=== PATIENT | male | born 1980 | race Caucasian/White ===

== ENCOUNTER 2016-12-14 21:34 | Emergency (ER) | payer SELFPAY ==
--- NOTE | 2016-12-14 22:23 | RADIOLOGY REPORT (SQ) ---
EXAM DESCRIPTION: HAND LEFT 3 VIEWS COMPLETED DATE/TIME: 12/14/2016 10:14 pm REASON FOR STUDY: R/O FX COMPARISON: None. EXAM PARAMETERS: NUMBER OF VIEWS: Three views. TECHNIQUE: AP, lateral and oblique radiographic images acquired of the left hand. LIMITATIONS: None. FINDINGS: MINERALIZATION: Normal. BONES: No acute fracture or dislocation. No worrisome bone lesions. JOINTS: No effusions. SOFT TISSUES: No soft tissue swelling. No foreign body. OTHER: No other significant finding. IMPRESSION: NEGATIVE STUDY OF THE LEFT HAND. NO RADIOGRAPHIC EVIDENCE OF ACUTE INJURY. TECHNICAL DOCUMENTATION: JOB ID: [id number] [employer]%- All Rights Reserved
--- NOTE | 2016-12-14 23:35 | ER Document Report ---
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 His tetanus is up-to-date. He denies numbness, tingling, snuffbox tenderness or other injuries. TRAVEL OUTSIDE OF THE [place] IN LAST 30 DAYS: No - Related Data Allergies/Adverse Reactions: No Known Allergies Allergy (Verified 07/11/15 20:29) Past Medical History - General Information source: Patient - Social History Smoking Status: Unknown if Ever Smoked Family History: Other - Mother and brother have SVT long QT and he states have both had a heart attack and on pacemaker defibrillator Patient has suicidal ideation: No Patient has homicidal ideation: No Renal/ Medical History: Reports: Hx Kidney Stones. Denies: Hx Peritoneal Dialysis - Immunizations Immunizations up to date: Yes Hx Diphtheria, Pertussis, Tetanus Vaccination: No Review of Systems - Review of Systems Notes: REVIEW OF SYSTEMS: CONSTITUTIONAL: -fevers, -chills EENT: -eye pain, -difficulty swallowing, -nasal congestion CARDIOVASCULAR:-chest pain, -syncope. RESPIRATORY: -cough, -SOB GASTROINTESTINAL: -abdominal pain, - nausea, -vomiting, -diarrhea GENITOURINARY: -dysuria, -hematuria MUSCULOSKELETAL: +left hand pain, -back pain, -neck pain SKIN: -rash or skin lesions. HEMATOLOGIC: -easy bruising or bleeding. LYMPHATIC: -swollen, enlarged glands. NEUROLOGICAL: -altered mental status or loss of consciousness, -headache, - neurologic symptoms PSYCHIATRIC: -anxiety, -depression. ALL OTHER SYSTEMS REVIEWED AND NEGATIVE. Physical Exam - Vital signs Vitals: Temp Pulse Resp BP Pulse Ox 98.2 F 76 16 138/90 H 96 12/14/16 21:37 12/14/16 21:37 12/14/16 21:37 12/14/16 21:37 12/14/16 21:37 - Notes Notes: PHYSICAL EXAMINATION: GENERAL: Well-appearing, well-nourished and in no acute distress. HEAD: Atraumatic, normocephalic. EYES: Pupils equal round and reactive to light, extraocular movements intact, sclera anicteric, conjunctiva are normal. ENT: nares patent, oropharynx clear without exudates. Moist mucous membranes. NECK: Normal range of motion, supple without lymphadenopathy LUNGS: Breath sounds clear to auscultation bilaterally and equal. No wheezes rales or rhonchi. HEART: Regular rate and rhythm without murmurs ABDOMEN: Soft, nontender, normoactive bowel sounds. No guarding, no rebound. No masses appreciated. EXTREMITIES: Swelling and contusion over left base of 5th metacarpal, N/V intact distally, no snuffbox tenderness, normal range of motion, no pitting or edema. No cyanosis. NEUROLOGICAL: Cranial nerves grossly intact. Normal speech, normal gait. Normal sensory and motor exams. PSYCH: Normal mood, normal affect. Course - Re-evaluation Re-evalutation: No fractures on x-ray. Will treat his hand contusion with NSAIDs. - Vital Signs Vital signs: Temp Pulse Resp BP Pulse Ox 98.2 F 84 20 118/76 96 12/14/16 21:37 12/14/16 23:48 12/14/16 23:48 12/14/16 23:48 12/14/16 23:48 Discharge - Discharge Clinical Impression: Contusion of left hand Qualifiers: Encounter type: initial encounter Qualified Code(s): S60.222A - Contusion of left hand, initial encounter Condition: Good Disposition: HOME, SELF-CARE Additional Instructions: Contusion Your injury has resulted in a contusion -- a crushing of the deep tissues. No injury to important structures was detected during the physician's exam. Contusions vary in the amount of pain they cause, and in the length of time required for healing. Typically, the area will become bruised, and will remain painful to touch for two or three weeks. However, most patients are back to working and playing within a few days. After the initial period of rest and cold-packs, your symptoms (together with the doctor's recommendations) will determine how rapidly you can get back to full activity. Usually this means "do what feels okay, but don't do things that hurt." If re-examination was recommended, it's important to follow up as instructed. Call the doctor or return any time if pain increases, if swelling becomes severe, if you develop numbness or weakness in an injured extremity, or if any other alarming symptoms occur. Referrals: SAMMIE DAI, [ACTIVE STAFF] - Follow up as needed
[2016-12-14] MEDS ORDERED: IBUPROFEN 600 MG TABLET PO ONE (23:39)
[2016-12-14] MEDS ORDERED: ACETAMINOPHEN WITH CODEINE #3 TABLET PO ONE (23:39)
[2016-12-14 23:48] VITALS: BP 118/76
== END 2016-12-14 23:48 | disposition home or self-care (01) ==
LOC: ER 21:34
DX: S60.222A Contusion of left hand, initial encounter (principal); W20.8XXA Other cause of strike by thrown, projected or falling object, initial encounter; Z87.442 Personal history of urinary calculi
CPT/HCPCS: 99283

== ENCOUNTER 2017-01-10 11:26 | Emergency (ER) | payer SELFPAY ==
[2017-01-10] MEDS ORDERED: OXYCODONE-ACETAMINOPHEN 5-325 MG TABLET PO ONE (12:06)
--- NOTE | 2017-01-10 12:24 | ER Document Report ---
ED Head/Face/Scalp Injury - General Chief Complaint: Facial Swelling Stated Complaint: SWELLING,FACIAL PAIN Time Seen by Provider: 01/10/17 12:04 Notes: swelling and pain to left nare x 6 days. area was draining initially, but quit draining 2 days ago. swelling and pain to nose and left face have increased. TRAVEL OUTSIDE OF THE [place] IN LAST 30 DAYS: No - HPI Injury to: Nose Timing: Worse Context: Other - abscess - Related Data Allergies/Adverse Reactions: No Known Allergies Allergy (Verified 01/10/17 11:27) Past Medical History - General Information source: Patient - Social History Smoking Status: Current Every Day Smoker Chew tobacco use (# tins/day): No Frequency of alcohol use: None Drug Abuse: None Lives with: Family Family History: Reviewed & Not Pertinent, Other - Mother and brother have SVT long QT and he states have both had a heart attack and on pacemaker defibrillator Patient has suicidal ideation: No Patient has homicidal ideation: No - Medical History Medical History: Negative Renal/ Medical History: Reports: Hx Kidney Stones. Denies: Hx Peritoneal Dialysis Past Surgical History: Reports: Hx Kidney (Renal Surgery) - lithrotripsy - Immunizations Immunizations up to date: Yes Hx Diphtheria, Pertussis, Tetanus Vaccination: No Review of Systems - Review of Systems Constitutional: No symptoms reported EENT: See HPI, Nose pain Cardiovascular: No symptoms reported Respiratory: No symptoms reported Gastrointestinal: No symptoms reported Genitourinary: No symptoms reported Male Genitourinary: No symptoms reported Musculoskeletal: No symptoms reported Skin: No symptoms reported Hematologic/Lymphatic: No symptoms reported Neurological/Psychological: No symptoms reported Physical Exam - Vital signs Vitals: Temp Pulse Resp BP Pulse Ox 98.2 F 68 16 131/61 H 94 01/10/17 11:29 01/10/17 11:29 01/10/17 11:29 01/10/17 11:29 01/10/17 11:29 Interpretation: Normal - General General appearance: Appears well, Alert - HEENT Head: Normocephalic, Atraumatic Eyes: Normal Conjunctiva: Normal Pupils: PERRL Tympanic membrane: Normal Sinus: Other - + tenderness left maxially sinus Nasal: Other - swelling and pain to left anterior nare and septal wall. center scab removed with 18g needle, no drainage. very painful Mucous membranes: Normal, Moist Pharynx: Normal Neck: Normal, Supple - Respiratory Respiratory status: No respiratory distress Chest status: Nontender Breath sounds: Normal Chest palpation: Normal - Cardiovascular Rhythm: Regular Heart sounds: Normal auscultation Murmur: No - Abdominal Inspection: Normal Distension: No distension Bowel sounds: Normal Tenderness: Nontender Organomegaly: No organomegaly - Back Back: Normal, Nontender - Extremities General upper extremity: Normal inspection, Nontender, Normal color, Normal ROM , Normal temperature General lower extremity: Normal inspection, Nontender, Normal color, Normal ROM , Normal temperature, Normal weight bearing. No: Yenifer's sign - Neurological Neuro grossly intact: Yes Cognition: Normal Orientation: AAOx4 [place] Coma Scale Eye Opening: Spontaneous [place] Coma Scale Verbal: Oriented [place]abella Coma Scale Motor: Obeys Commands Isabella Coma Scale Total: 15 Speech: Normal Motor strength normal: LUE, RUE, LLE, RLE Sensory: Normal - Psychological Associated symptoms: Normal affect, Normal mood - Skin Skin Temperature: Warm Skin Moisture: Dry Skin Color: Normal Course - Re-evaluation Re-evalutation: 01/10/17 12:[address] Strickland who evaluated patient at bedside. recommends oral and topical antibiotic. no I&D at this time. pt agreeable with plan and stable for discharge - Vital Signs Vital signs: Temp Pulse Resp BP Pulse Ox 98.2 F 68 16 131/61 H 94 01/10/17 11:29 01/10/17 11:29 01/10/17 11:29 01/10/17 11:29 01/10/17 11:29 Discharge - Discharge Clinical Impression: Nasal abscess Condition: Stable Disposition: HOME, SELF-CARE Instructions: Abscess ([facility]), Oral Narcotic Medication ([facility]), Antibiotic Ointment Protection ([facility]) Additional Instructions: apply warm compresses to area take antibiotic as prescribed follow up with ENT for further treatment Prescriptions: Clindamycin HCl 300 mg PO QID #28 capsule Mupirocin [Bactroban 2% Ointment 22 gm] 1 applic TP TID #1 tube Oxycodone HCl/Acetaminophen [Percocet 5-325 mg Tablet] 1 - 2 tab PO ASDIR PRN # 25 tablet PRN Reason: Forms: Elevated Blood Pressure
[2017-01-10 12:49] VITALS: BP 108/57
== END 2017-01-10 12:47 | disposition home or self-care (01) ==
LOC: ER 11:26
DX: J32.9 Chronic sinusitis, unspecified (principal); R22.0 Localized swelling, mass and lump, head; R51 Headache; F17.200 Nicotine dependence, unspecified, uncomplicated
CPT/HCPCS: 99283

== ENCOUNTER 2017-02-24 16:52 | Emergency (ER) | payer SELFPAY ==
[2017-02-24] MEDS ORDERED: TETRACAINE HCL 0.5% OPH SOLN 2 ML OS ONE (17:31)
--- NOTE | 2017-02-24 17:48 | ER Document Report ---
HPI - HPI Patient complains to provider of: shingles around left eye and left side Onset: Other Onset/Duration: Sudden Quality of pain: Burning Severity: Moderate Pain Level: 4 Context: Patient states pain started several days ago and rash began yesterday above left eye and to left side of trunk. He has had shingles before and it is always in the same places. Associated Symptoms: None Exacerbated by: Denies Relieved by: Denies Similar symptoms previously: Yes Recently seen / treated by doctor: No - ROS ROS below otherwise negative: Yes Systems Reviewed and Negative: Yes All other systems reviewed and negative - CONSTITUTIONAL Constitutional: DENIES: Fever - EENT EENT: DENIES: Congestion, Eye problems - NEURO Neurology: DENIES: Headache - CARDIOVASCULAR Cardiovascular: DENIES: Chest pain - RESPIRATORY Respiratory: DENIES: Trouble Breathing - GASTROINTESTINAL Gastrointestinal: DENIES: Abdominal Pain - REPRODUCTIVE Reproductive: DENIES: : - MUSCULOSKELETAL Musculoskeletal: DENIES: Extremity pain - DERM Skin Color: Erythema Skin Problems: Rash Past Medical History - General Information source: Patient - Social History Smoking Status: Current Every Day Smoker Frequency of alcohol use: Rare Drug Abuse: None Lives with: Spouse/Significant other Family History: Reviewed & Not Pertinent, Other - Mother and brother have SVT long QT and he states have both had a heart attack and on pacemaker defibrillator Renal/ Medical History: Reports: Hx Kidney Stones Past Surgical History: Reports: Hx Kidney (Renal Surgery) - lithrotripsy - Immunizations Immunizations up to date: Yes Hx Diphtheria, Pertussis, Tetanus Vaccination: No Vertical Provider Document - CONSTITUTIONAL Agree With Documented VS: Yes Exam Limitations: No Limitations General Appearance: WD/WN, No Apparent Distress - INFECTION CONTROL TRAVEL OUTSIDE OF THE [place] IN LAST 30 DAYS: No - HEENT HEENT: Atraumatic, Normal ENT Exam, Normocephalic, PERRLA - NECK Neck: Normal Inspection - RESPIRATORY Respiratory: Breath Sounds Normal, No Respiratory Distress O2 Sat by Pulse Oximetry: 100 - CARDIOVASCULAR Cardiovascular: Regular Rate, Regular Rhythm - GI/ABDOMEN Gastrointestinal: Abdomen Soft - MUSCULOSKELETAL/EXTREMETIES Musculoskeletal/Extremeties: MAEW - NEURO Level of Consciousness: Awake, Alert, Appropriate - DERM Integumentary: Warm, Dry, Rash - Vesicular rash above left eyelid. Red rash tracking from mid left back to left side of trunk. No vesicles on the trunk Course - Re-evaluation Re-evalutation: 02/24/17 17:[address] Bhagat. Stain eye to look for dendrites. Left eye numbed with tetracaine and fluorescein instilled. This was rinsed with approximately 4 mL's of normal saline. No dendrites or blisters noted to eye. 02/24/17 17:52 - Vital Signs Vital signs: Temp Pulse Resp BP Pulse Ox 98.1 F 62 16 116/57 L 100 02/24/17 16:54 02/24/17 16:54 02/24/17 16:54 02/24/17 16:54 02/24/17 16:54 Discharge - Discharge Clinical Impression: Shingles Qualifiers: Herpes zoster complications: without complications Qualified Code(s): B02.9 - Zoster without complications Condition: Good Disposition: HOME, SELF-CARE Instructions: Acetaminophen Additional Instructions: Take all meds as prescribed Follow-up with primary care and her eye doctor beginning of next week for recheck. tylenol prn return as needed Prescriptions: Acyclovir [Acyclovir 400 mg Tablet] 800 mg PO 5XD #70 tablet Prednisone [Deltasone 10 mg Tablet] 10 mg PO ASDIR PRN #21 tablet PRN Reason: Referrals: YUMIKO SEO MD [ACTIVE STAFF] - Follow up as needed
[2017-02-24 17:56] VITALS: BP 117/71
== END 2017-02-24 17:58 | disposition home or self-care (01) ==
LOC: ER 16:52
DX: B02.9 Zoster without complications (principal); F17.200 Nicotine dependence, unspecified, uncomplicated; Z87.442 Personal history of urinary calculi
CPT/HCPCS: 99283

== ENCOUNTER 2017-03-06 12:33 | Inpatient (IN) | payer SELFPAY ==
[2017-03-06] MEDS ORDERED: MORPHINE SULFATE 10 MG/ML INJ IV ONE ×2 (13:02→14:43)
[2017-03-06] MEDS ORDERED: ONDANSETRON HCL INJ/PF 4 MG/2 ML SDV IV ONE ×4 (13:02→17:59)
--- NOTE | 2017-03-06 13:04 | ER Document Report ---
ED Medical Screen (RME) - General Chief Complaint: Flank Pain Stated Complaint: VOMITTING Time Seen by Provider: 03/06/17 13:00 Notes: Patient with a history of kidney stone presents with severe left flank pain started last night. He is also having vomiting. He denies any blood or problems with urination. Patient also states on a previous CT scan he was told he had a "mass" in his left kidney but he does not know further details. TRAVEL OUTSIDE OF THE [place] IN LAST 30 DAYS: No - Related Data Allergies/Adverse Reactions: No Known Allergies Allergy (Verified 03/06/17 12:44) Past Medical History - Social History Frequency of alcohol use: None Drug Abuse: None Renal/ Medical History: Reports: Hx Kidney Stones. Denies: Hx Peritoneal Dialysis Past Surgical History: Reports: Hx Kidney (Renal Surgery) - lithrotripsy - Immunizations Immunizations up to date: Yes Hx Diphtheria, Pertussis, Tetanus Vaccination: No Physical Exam - Vital signs Vitals: Temp Pulse BP Pulse Ox 97.9 F 72 135/111 H 100 03/06/17 12:44 03/06/17 12:44 03/06/17 12:44 03/06/17 12:44 Course - Vital Signs Vital signs: Temp Pulse Resp BP Pulse Ox 97.9 F 72 135/111 H 100 03/06/17 12:44 03/06/17 12:44 03/06/17 12:44 03/06/17 12:44
[2017-03-06] MEDS: NORMAL SALINE 1000 ML 1,000 ML IV PRN ×2 (13:38→21:30)
[2017-03-06 13:58] LABS: HEMOGLOBIN 15.8 g/dL (13.5-17.0); HGB HCT DIFFERENCE 1.4; MEAN CORPUSCULAR HEMOGLOBIN 30.7 pg (27.0-33.4); MEAN CORPUSCULAR HGB CONC 34.4 g/dL (32.0-36.0); MEAN CORPUSCULAR VOLUME 89 fl (80-97); RED BLOOD COUNT 5.15 10^6/uL (4.35-5.55); RED CELL DISTRIBUTION WIDTH 14.1 % (11.5-14.0); WHITE BLOOD COUNT 28.2 10^3/uL (4.0-10.5)
[2017-03-06] MEDS ORDERED: NORMAL SALINE 1000 ML 1,000 ML IV ONE (14:16)
[2017-03-06] MEDS ORDERED: CEFTRIAXONE 1 GM/D5W RTU 1 GM/50 ML RTUPB IV ONE (14:24)
[2017-03-06 14:26] LABS: BAND NEUTROPHILS % (MANUAL) 2 % (3-5); BASOPHILS % (MANUAL) 0 % (0-2); EOSINOPHILS % (MANUAL) 0 % (0-6); LYMPHOCYTES % (MANUAL) 9 % (13-45); RBC MORPHOLOGY COMMENT NORMO-CYTIC/CHROMIC; TOTAL CELLS COUNTED 100; TOXIC GRANULATION SLIGHT
--- NOTE | 2017-03-06 14:32 | ER Document Report ---
ED GI/ - General Chief Complaint: Flank Pain Stated Complaint: VOMITTING Time Seen by Provider: 03/06/17 13:00 Notes: Patient says he began vomiting yesterday afternoon and is vomited about 20 times. He is having pain in the left back and flank region since last night. He has had the same pain previously with kidney stones and has undergone lithotripsy 5 times. Has also been told he has a mass in his left kidney, but no one has recommended surgery to remove that mass or kidney. He began having problems with his left kidney about 5 or 6 years ago and has had stones as well as sepsis secondary to infection in that kidney. No diarrhea. No other abdominal procedures or surgeries. Denies any abdominal pain. Unaware of any fever. On no prescription medications for any medical conditions. TRAVEL OUTSIDE OF THE [place] IN LAST 30 DAYS: No - Related Data Allergies/Adverse Reactions: No Known Allergies Allergy (Verified 03/06/17 12:44) Past Medical History - Social History Smoking Status: Current Every Day Smoker Frequency of alcohol use: None Drug Abuse: None Family History: Reviewed & Not Pertinent, Other - Mother and brother have SVT long QT and he states have both had a heart attack and on pacemaker defibrillator Patient has suicidal ideation: No Patient has homicidal ideation: No Renal/ Medical History: Reports: Hx Kidney Stones Past Surgical History: Reports: Hx Kidney (Renal Surgery) - lithrotripsy - Immunizations Immunizations up to date: Yes Hx Diphtheria, Pertussis, Tetanus Vaccination: No Review of Systems - Review of Systems Notes: REVIEW OF SYSTEMS: CONSTITUTIONAL : Denies fever. EENT: Denies eye, ear, nose or mouth or throat pain or other symptoms. CARDIOVASCULAR: Denies chest pain. RESPIRATORY: Denies cough, chest congestion, or shortness of breath. GASTROINTESTINAL: See HPI. GENITOURINARY: See HPI. MUSCULOSKELETAL: Denies back or neck pain. Denies joint pain or swelling. SKIN: Denies rash or skin lesions. NEUROLOGICAL: Denies LOC or altered mental status. Denies headache. Denies sensory loss or motor deficits. ALL OTHER SYSTEMS REVIEWED AND NEGATIVE. Physical Exam - Vital signs Vitals: Temp Pulse BP Pulse Ox 97.9 F 72 135/111 H 100 03/06/17 12:44 03/06/17 12:44 03/06/17 12:44 03/06/17 12:44 Interpretation: Normal, Hypertensive - Mild - Notes Notes: PHYSICAL EXAMINATION: GENERAL: Well-appearing, in no acute distress. Vital signs normal except for slightly elevated blood pressure. Afebrile. Appears in pain. HEAD: Atraumatic, normocephalic. NECK: Normal range of motion, supple. LUNGS: Breath sounds clear and equal bilaterally. HEART: Regular rate and rhythm without murmurs. ABDOMEN: Soft, mild diffuse tenderness but no guarding or rebound. No masses. BACK: Mild percussion tenderness in the left flank region but no other back tenderness.. EXTREMITIES: Normal range of motion without pain. NEUROLOGICAL: Normal speech, normal gait. Normal sensory, motor, and reflex exams. Awake, alert, and oriented x3. Cranial nerves normal. PSYCH: Normal mood, normal affect. SKIN: Warm, dry, no rashes. Course - Re-evaluation Re-evalutation: 03/06/17 17:40 IV fluids were started on the patient. He was given medication for nausea and vomiting. Lab studies were reviewed. Patient's white count of nearly 26,000 is concerning. Urinalysis does not show infection. CT scan does not show obstruction or any urologic abnormalities. I consulted with Dr. Knapp, urologist on-call, who came to the emergency department and evaluated the patient and feels he does not have a urological problem. Spoke with Dr. Null, hospitalist, who will admit the patient for fluids and further observation. - Vital Signs Vital signs: Temp Pulse Resp BP Pulse Ox 97.9 F 64 16 108/62 99 03/06/17 12:44 03/06/17 16:28 03/06/17 16:28 03/06/17 16:28 03/06/17 16:28 - Laboratory Result Diagrams: 03/06/17 13:42 03/06/17 14:32 Laboratory results interpreted by me: 03/06/17 03/06/17 03/06/17 13:42 14:29 14:32 WBC 28.2 H RDW 14.1 H Seg Neuts % (Manual) 83 H Band Neutrophils % 2 L Lymphocytes % (Manual) 9 L Abs Neuts (Manual) 24.0 H BUN 24 H Glucose 115 H Direct Bilirubin 0.5 H Urine Protein 100 H Urine Ketones 20 H - Diagnostic Test Radiology reviewed: Image reviewed, Reports reviewed - CT scan of the patient's abdomen and pelvis without contrast was read as normal. He does have a small punctate calcification in the kidneys that could represent tiny stones, but none in either of the ureters. Discharge - Discharge Clinical Impression: Intractable vomiting Qualifiers: Vomiting type: unspecified Abdominal pain Qualifiers: Abdominal location: generalized Qualified Code(s): R10.84 - Generalized abdominal pain Leukocytosis Qualifiers: Leukocytosis type: bandemia Qualified Code(s): D72.825 - Bandemia Condition: Stable Disposition: ADMITTED INPATIENT Admitting Provider: Hospitalist Unit Admitted: [facility]
[2017-03-06] MEDS ORDERED: KETOROLAC TROMETHAMINE INJ/PF 30 MG/1 ML SDV IV ONE (14:43)
--- NOTE | 2017-03-06 15:13 | RADIOLOGY REPORT (SQ) ---
EXAM DESCRIPTION: CT LTD RENAL STONE PROTOCOL ON COMPLETED DATE/TIME: 03/06/2017 2:46 pm REASON FOR STUDY: L flank,Hx stones, litho-5, WBC 28,000 COMPARISON: CT abdomen pelvis 04/28/2008, 12/15/2010, 07/11/2015 TECHNIQUE: CT scan of the abdomen and pelvis performed without intravenous or oral contrast. Images reviewed with lung, soft tissue, and bone windows. Reconstructed coronal and sagittal MPR images revi ewed. All images stored on PACS. All CT scanners at this facility use dose modulation, iterative reconstruction, and/or weight based d osing when appropriate to reduce radiation dose to as low as reasonably achievable (ALARA). [facility]: Dose Right [facility]: CareDose [facility]: Dose Right [facility]: Teradose 4D [facility]: [employer] RADIATION DOSE: Up-to-date CT equipment and radiation dose reduction techniques were employed. CTDIv ol: 4.9 mGy. DLP: 256 mGy-cm.mGy. LIMITATIONS: None. FINDINGS: LOWER CHEST: No significant findings. No nodules or infiltrates. NON-CONTRASTED LIVER, SPLEEN, ADRENALS: Evaluation limited by lack of IV contrast. No identified sign ificant masses. PANCREAS: No masses. No peripancreatic inflammatory changes. GALLBLADDER: No identified stones by CT criteria. No inflammatory changes to suggest cholecystitis. RIGHT KIDNEY AND URETER: No suspicious masses. Assessment limited by lack of IV contrast. 1.3 cm rig ht upper pole renal cortical cyst. No significant calcifications. No hydronephrosis or hydroureter . LEFT KIDNEY AND URETER: No suspicious masses. Assessment limited by lack of IV contrast. 2 cm left u pper pole renal cortical cyst. Less than 2 mm left lower pole intrarenal nonobstructive stone. No hydronephrosis or hydroureter. AORTA AND RETROPERITONEUM: No aneurysm. No retroperitoneal masses or adenopathy. BOWEL AND PERITONEAL CAVITY: No obvious masses or inflammatory changes. No free fluid. APPENDIX: Normal. PELVIS, BLADDER, AND ABDOMINAL WALL:No abnormal masses. No free fluid. Bladder normal. BONES: No significant findings. OTHER: No other significant finding. IMPRESSION: NO SIGNIFICANT OR ACUTE PROCESS IN THE ABDOMEN OR PELVIS. TECHNICAL DOCUMENTATION: JOB ID: [id number] Quality ID # [id number]: Final reports with documentation of one or more dose reduction techniques (e.g., Au tomated exposure control, adjustment of the mA and/or kV according to patient size, use of iterative reconstruction technique) 2010 [employer]- All Rights Reserved
[2017-03-06 15:17] LABS: APPEARANCE,URINE CLEAR; BILIRUBIN,URINE NEGATIVE (NEGATIVE); GLUCOSE, URINE NEGATIVE (NEGATIVE); KETONES,URINE 20 mg/dL (NEGATIVE); LEUKOCYTE ESTERASE,URINE NEGATIVE (NEGATIVE); NITRITE,URINE NEGATIVE (NEGATIVE); PROTEIN,URINE 100 mg/dL (NEGATIVE); URINE SPECIFIC GRAVITY 1.018; UROBILINOGEN,URINE NEGATIVE mg/dL (<2.0)
[2017-03-06 17:17] LABS: ALANINE AMINOTRANSFERASE 25 U/L (21-72); ALBUMIN 4.4 g/dL (3.5-5.0); ALKALINE PHOSPHATASE 70 U/L (38-126); ANION GAP 14 (5-19); ASPARTATE AMINO TRANSFERASE 22 U/L (17-59); BILIRUBIN,DIRECT 0.5 mg/dL (0.0-0.4); BILIRUBIN,TOTAL 1.2 mg/dL (0.2-1.3); BLOOD UREA NITROGEN 24 mg/dL (7-20); CALCIUM 9.8 mg/dL (8.4-10.2); CARBON DIOXIDE 29 mmol/L (22-30); CHLORIDE 100 mmol/L (98-107); CREATININE RESULT 0.96 mg/dL (0.52-1.25); GLUCOSE 115 mg/dL (75-110); POTASSIUM 3.8 mmol/L (3.6-5.0); SODIUM 143.2 mmol/L (137-145); TOTAL PROTEIN 7.6 g/dL (6.3-8.2)
[2017-03-06] MEDS ORDERED: ACETAMINOPHEN 325 MG TABLET PO PRN (18:36)
--- NOTE | 2017-03-06 19:07 | PDOC H&P ---
History of Present Illness Admission Date/PCP: 03/06/17 17:54 History of Present Illness: SKINNY FALLON is a 36 year old male Past Medical History Renal/ Medical History: Reports: Nephrolithiasis Past Surgical History Past Surgical History: Reports: Other - lithotrypsy Social History Information Source: Patient Smoking Status: Current Every Day Smoker Frequency of Alcohol Use: None Hx Recreational Drug Use: No Drugs: None Family History Family History: CAD, DM, Hypertension, Malignancy, Other - Mother and brother have SVT long QT and he states have both had a heart attack and on pacemaker defibrillator Parental Family History Reviewed: Yes Children Family History Reviewed: Yes Sibling(s) Family History Reviewed.: Yes Medication/Allergy Home Medications: No Home Medications 03/06/17 Allergies/Adverse Reactions: No Known Allergies Allergy (Verified 03/06/17 12:44) Review of Systems Constitutional: PRESENT: headache(s). ABSENT: chills, fever(s), night sweats, weakness, weight gain, weight loss Eyes: ABSENT: visual disturbances Ears: ABSENT: hearing changes Nose, Mouth, and Throat: PRESENT: sore throat - from vomiting. ABSENT: mouth pain Cardiovascular: ABSENT: chest pain, dyspnea on exertion, edema, orthropnea, palpitations Respiratory: ABSENT: cough, dyspnea, hemoptysis Gastrointestinal: ABSENT: abdominal pain, constipation, diarrhea, hematemesis, hematochezia, melena, nausea, vomiting Genitourinary: ABSENT: dysuria, hematuria Musculoskeletal: ABSENT: joint swelling Integumentary: PRESENT: rash - from shingles much better. ABSENT: wounds Neurological: ABSENT: abnormal gait, abnormal speech, confusion, dizziness, focal weakness, syncope Psychiatric: ABSENT: anxiety, depression, homidical ideation, suicidal ideation Endocrine: ABSENT: cold intolerance, heat intolerance, polydipsia, polyuria Hematologic/Lymphatic: ABSENT: easy bleeding, easy bruising Physical Exam Vital Signs: Temp Pulse Resp BP Pulse Ox 98.9 F 63 16 129/65 H 98 03/06/17 18:46 03/06/17 18:46 03/06/17 18:46 03/06/17 18:46 03/06/17 18:46 General appearance: PRESENT: no acute distress, well-developed, well-nourished Head exam: PRESENT: atraumatic, normocephalic Eye exam: PRESENT: conjunctiva pink, EOMI, PERRLA. ABSENT: scleral icterus Ear exam: PRESENT: normal external ear exam Mouth exam: PRESENT: moist, neck supple, tongue midline Neck exam: ABSENT: carotid bruit, JVD, lymphadenopathy, thyromegaly Respiratory exam: PRESENT: clear to auscultation malik. ABSENT: rales, rhonchi, wheezes Cardiovascular exam: PRESENT: RRR. ABSENT: diastolic murmur, rubs, systolic murmur Pulses: PRESENT: normal dorsalis pedis pul Vascular exam: PRESENT: normal capillary refill GI/Abdominal exam: PRESENT: hyperactive bowel sounds, soft. ABSENT: distended, guarding, mass, organolmegaly, rebound, tenderness Rectal exam: PRESENT: deferred Extremities exam: PRESENT: full ROM. ABSENT: calf tenderness, clubbing, pedal edema Neurological exam: PRESENT: alert, awake, oriented to person, oriented to place , oriented to time, oriented to situation, CN II-XII grossly intact. ABSENT: motor sensory deficit Psychiatric exam: PRESENT: appropriate affect, normal mood. ABSENT: homicidal ideation, suicidal ideation Skin exam: PRESENT: dry, intact, warm, other - Dry papules noted on L chest wall and minimal on the upper eyelid L. ABSENT: cyanosis, rash Results Impressions: Limited or Localized CT 03/06/17 14:21 IMPRESSION: NO SIGNIFICANT OR ACUTE PROCESS IN THE ABDOMEN OR PELVIS. Assessment & Plan - Diagnosis (1) Intractable vomiting Qualifiers: Vomiting type: unspecified Is this a current diagnosis for this admission?: Yes (2) Abdominal pain Qualifiers: Abdominal location: generalized Qualified Code(s): R10.84 - Generalized abdominal pain Is this a current diagnosis for this admission?: Yes (3) Leukocytosis Qualifiers: Leukocytosis type: unspecified Qualified Code(s): D72.829 - Elevated white blood cell count, unspecified Is this a current diagnosis for this admission?: Yes - Time Time Spent: 50 to 70 Minutes - Plan Summary Plan Summary: Start IVF and clear liquid diet , give anti-emetics, IV analgesics and obtain head CT. Hold any antibiotics for now. Monitor WBC.
--- NOTE | 2017-03-06 19:36 | RADIOLOGY REPORT (SQ) ---
EXAM DESCRIPTION: CT HEAD COMBO COMPLETED DATE/TIME: 03/06/2017 7:28 pm REASON FOR STUDY: intractable headache COMPARISON: None. TECHNIQUE: Axial images acquired through the brain without and with intravenous contrast. Images re viewed with bone, brain and subdural windows. Images stored on PACS. All CT scanners at this facility use dose modulation, iterative reconstruction, and/or weight based d osing when appropriate to reduce radiation dose to as low as reasonably achievable (ALARA). [facility]: Dose Right [facility]: CareDose [facility]: Dose Right [facility]: Teradose 4D [facility]: [employer] CONTRAST TYPE AND DOSE: contrast/concentration: Isovue 370.00 mg/ml; Total Contrast Delivered: 50.0 ml; Total Saline Delivered: 40.0 ml RENAL FUNCTION: GFR > 60. RADIATION DOSE: Up-to-date CT equipment and radiation dose reduction techniques were employed. CTDIv ol: 64.6 mGy. DLP: 2326 mGy-cm.. LIMITATIONS: None. FINDINGS: VENTRICLES: Normal size and contour. CEREBRUM: No masses. No hemorrhage. No midline shift. Normal best/white matter differentiation. No ev idence for acute infarction. No enhancing lesions. CEREBELLUM: No masses. No hemorrhage. No alteration of density. No evidence for acute infarction. No enhancing lesions. EXTRA-AXIAL SPACES: No fluid collections. No enhancing lesions. ORBITS AND GLOBE: No intra- or extraconal masses. Normal contour of globe without masses. CALVARIUM: No fracture. PARANASAL SINUSES: 2.9 cm mucous retention cyst left maxillary sinus. Otherwise clear. SOFT TISSUES: No mass or hematoma. OTHER: No other significant finding. IMPRESSION: 2.9 CM LEFT MAXILLARY SINUS MUCOUS RETENTION CYST. OTHERWISE UNREMARKABLE HEAD CT WITH AND WITHOUT CONTRAST. TECHNICAL DOCUMENTATION: JOB ID: [id number] Quality ID # [id number]: Final reports with documentation of one or more dose reduction techniques (e.g., Au tomated exposure control, adjustment of the mA and/or kV according to patient size, use of iterative reconstruction technique) 2010 [employer]- All Rights Reserved
--- NOTE | 2017-03-06 20:22 | CONSULTATION REPORT E ---
Consultation Report NAME: SKINNY FALLON : 1980 AGE: 36Y DATE: 03/06/2017 330 A TO: REJI RUTHERFORD M.D. FROM: CARLIN ROCHA M.D. Requesting Physician PREOPERATIVE DIAGNOSES: 1. Abdominal pain. 2. Intractable vomiting. 3. Left kidney stone. 4. Bilateral renal cysts. RECOMMENDATIONS: His renal cysts are stable with prior CT scans. He has a puncture left renal calculus that is not responsible for his current condition and does not require any further treatment. His urine is normal. He does have a white count of 28,000 and is having intractable vomiting, so he will need further evaluation and treatment, but his problem is not urological. CONSULTATION: The patient is a 37-year-old white male who was in moderate distress. He has been experiencing intractable vomiting over the past 24 hours. His white count is 28,000. His urinalysis is normal. He has had some sensation of the tip of his penis after voiding over the past 24 hours but then this could easily be due to acidic urine from dehydration due to his continued vomiting. His abdominal pain started with back pain initially and resembled the pain he has had in the past when he has had kidney stones. His social history, family history, review of systems and past medical history are as listed in Dr. Dueñas's note and the nurses' summary, and I will not redictate them in this consultation. PHYSICAL EXAMINATION: GENERAL: The patient is in moderate distress. He is alert, oriented x3. VITAL SIGNS: Listed in the nurses' notes. HEAD, EYES, EARS, NOSE, THROAT AND NECK: Normal. LUNGS: There is no evidence of labored breathing. ABDOMEN: Soft but diffusely tender. There is no discrete rebound. He has hyperactive bowel sounds. DICTATING PHYSICIAN: REJI RUTHERFORD M.D. [id number] PHY#: [id number] ID: [id number] JOB#: [id number] ACCT: [id number] cc:BABAK DUEÑAS M.D., MARK M.D. >
[2017-03-06] MEDS: ONDANSETRON HCL INJ/PF 4 MG/2 ML SDV IV PRN (21:17)
[2017-03-06] MEDS: PANTOPRAZOLE SODIUM 40 MG VIAL IV SCH (21:17)
[2017-03-06] MEDS ORDERED: OXYCODONE HCL IR 5 MG TABLET PO ONE (23:56)
[2017-03-07 04:59] LABS: HGB HCT DIFFERENCE 0.7; MEAN CORPUSCULAR HEMOGLOBIN 31.1 pg (27.0-33.4); MEAN CORPUSCULAR HGB CONC 33.9 g/dL (32.0-36.0); MEAN CORPUSCULAR VOLUME 92 fl (80-97); RED BLOOD COUNT 3.82 10^6/uL (4.35-5.55); RED CELL DISTRIBUTION WIDTH 14.3 % (11.5-14.0); WHITE BLOOD COUNT 13.2 10^3/uL (4.0-10.5)
[2017-03-07 05:06] LABS: HEMOGLOBIN 11.9 g/dL (13.5-17.0)
[2017-03-07 05:19] LABS: ANION GAP 9 (5-19); BLOOD UREA NITROGEN 24 mg/dL (7-20); CALCIUM 8.8 mg/dL (8.4-10.2); CARBON DIOXIDE 25 mmol/L (22-30); CHLORIDE 106 mmol/L (98-107); CREATININE RESULT 1.06 mg/dL (0.52-1.25); GLUCOSE 118 mg/dL (75-110); POTASSIUM 3.9 mmol/L (3.6-5.0); SODIUM 139.6 mmol/L (137-145)
[2017-03-07] MEDS: ONDANSETRON HCL INJ/PF 4 MG/2 ML SDV IV PRN ×2 (07:00→09:06)
[2017-03-07] MEDS ORDERED: MORPHINE SULFATE 10 MG/ML INJ IV PRN (08:31)
[2017-03-07] MEDS: ENOXAPARIN SODIUM INJ 40 MG/0.4 ML DISP.SYRIN SUBCUT SCH (09:05)
[2017-03-07] MEDS: DOCUSATE SODIUM 100 MG CAPSULE PO SCH ×2 (09:11→17:14)
--- NOTE | 2017-03-07 11:27 | PDOC PROGRESS REPORT ---
Subjective Progress Note for:: 03/07/17 Subjective:: MCCOY improved but now still w/ flank pain associated w/ nausea and vomniting. No chills nor fever nor diarrhea. Recently completed valtex and steroids for shingles. Physical Exam Vital Signs: Temp Pulse Resp BP Pulse Ox 98.0 F 45 L 18 150/83 H 99 03/07/17 08:11 03/07/17 08:11 03/07/17 08:11 03/07/17 08:11 03/07/17 08:11 Intake & Output 03/06/17 03/07/17 03/08/17 06:59 06:59 06:59 Intake Total 1812 Balance 1812 Weight 73.6 kg General appearance: PRESENT: mild distress, thin Head exam: PRESENT: normocephalic Eye exam: PRESENT: EOMI Mouth exam: PRESENT: moist, neck supple Neck exam: ABSENT: JVD Respiratory exam: PRESENT: clear to auscultation malik. ABSENT: rhonchi, wheezes Cardiovascular exam: PRESENT: RRR. ABSENT: gallop GI/Abdominal exam: PRESENT: hyperactive bowel sounds, soft. ABSENT: diminished bowel sounds Extremities exam: ABSENT: pedal edema Neurological exam: PRESENT: alert, awake, oriented to situation Skin exam: PRESENT: dry, warm. ABSENT: cyanosis, rash, vesicles Results Laboratory Results: 03/07/17 04:31 03/07/17 04:31 03/07/17 03/07/17 03/07/17 04:31 04:31 04:31 WBC 13.2 H RBC 3.82 L Hgb 11.9 L D Hct 35.0 L MCV 92 MCH 31.1 MCHC 33.9 RDW 14.3 H Plt Count 116 L Sodium 139.6 Potassium 3.9 Chloride 106 Carbon Dioxide 25 Anion Gap 9 BUN 24 H Creatinine 1.06 Est GFR ( Amer) > 60 Est GFR (Non-Af Amer) > 60 Glucose 118 H Calcium 8.8 TSH 0.38 L Impressions: Head CT 03/06/17 00:00 IMPRESSION: 2.9 CM LEFT MAXILLARY SINUS MUCOUS RETENTION CYST. OTHERWISE UNREMARKABLE HEAD CT WITH AND WITHOUT CONTRAST. Limited or Localized CT 03/06/17 14:21 IMPRESSION: NO SIGNIFICANT OR ACUTE PROCESS IN THE ABDOMEN OR PELVIS. Assessment & Plan - Diagnosis (1) Intractable vomiting Qualifiers: Vomiting type: unspecified Is this a current diagnosis for this admission?: Yes (2) Abdominal pain Qualifiers: Abdominal location: generalized Qualified Code(s): R10.84 - Generalized abdominal pain Is this a current diagnosis for this admission?: Yes (3) Leukocytosis Qualifiers: Leukocytosis type: unspecified Qualified Code(s): D72.829 - Elevated white blood cell count, unspecified Is this a current diagnosis for this admission?: Yes - Time Time Spent with patient: 25-34 minutes - Plan Summary Plan Summary: Check free t4, begin dilaudid and phenergan, D/C morphine, consult GI, cont. PPI.
--- NOTE | 2017-03-07 11:44 | PDOC CONSULTATION ---
Consultation Consult Date: 03/07/17 Attending physician:: JULIANA DUTTA Consult reason:: Intractable nausea and vomiting History of Present Illness Admission Date/PCP: 03/06/17 18:36 History of Present Illness: Patient was admitted by the hospitalist service. Was noted to have a potential kidney stone. Had a CT scan. Patient was seen by the urologist. Was not felt that his symptoms were due to his kidney stone. Has been on previous treatment for shingles. Symptoms have not subsided. GI consultation requested. Question possible peptic ulcer disease, question possible gastric outlet obstruction. Patient continues to have flank pain associated with nausea and vomiting. CT scan otherwise negative for other findings. Patient had been treated for shingles with Valtrex and steroids. Patient possibly needs upper endoscopy to rule out peptic ulcer disease. Previous history of mild heartburn. Denies any current dysphagia odynophagia. No previous hematemesis. Denies any melena or early satiety. Past Medical History Renal/ Medical History: Reports: Nephrolithiasis Past Surgical History Past Surgical History: Reports: Other - lithotrypsy Social History Smoking Status: Current Every Day Smoker Cigarettes Packs Per Day: 0.5 Frequency of Alcohol Use: None Hx Recreational Drug Use: No Drugs: None Family History Family History: CAD, DM, Hypertension, Malignancy, Other - Mother and brother have SVT long QT and he states have both had a heart attack and on pacemaker defibrillator Parental Family History Reviewed: Yes Children Family History Reviewed: Unknown Sibling(s) Family History Reviewed.: Unknown Medication/Allergy Home Medications: No Home Medications 03/06/17 Allergies/Adverse Reactions: No Known Allergies Allergy (Verified 03/06/17 12:44) Review of Systems Constitutional: ABSENT: fever(s), headache(s), night sweats, weakness Eyes: ABSENT: visual disturbances Ears: ABSENT: hearing changes Nose, Mouth, and Throat: ABSENT: mouth pain, sore throat Cardiovascular: ABSENT: chest pain, edema, orthropnea, palpitations Respiratory: ABSENT: dyspnea, hemoptysis Gastrointestinal: PRESENT: nausea, vomiting. ABSENT: diarrhea, dysphagia, hematemesis, hematochezia, melena Genitourinary: ABSENT: dysuria, hematuria Musculoskeletal: ABSENT: deformity, joint swelling Integumentary: ABSENT: lesions, pruritus Neurological: ABSENT: syncope, tingling, tremor(s), vertigo Endocrine: ABSENT: polydipsia, polyphagia, polyuria Hematologic/Lymphatic: ABSENT: easy bruising Allergic/Immunologic: ABSENT: seasonal rhinorrhea Physical Exam Vital Signs: Temp Pulse Resp BP Pulse Ox 98.0 F 45 L 18 150/83 H 99 03/07/17 08:11 03/07/17 08:11 03/07/17 08:11 03/07/17 08:11 03/07/17 08:11 Intake & Output 03/06/17 03/07/17 03/08/17 06:59 06:59 06:59 Intake Total 1812 Balance 1812 Weight 73.6 kg General appearance: PRESENT: no acute distress, mild distress, well-developed, well-nourished Head exam: PRESENT: atraumatic, normocephalic Eye exam: PRESENT: EOMI, PERRLA. ABSENT: nystagmus, periorbital swelling, scleral icterus Mouth exam: PRESENT: moist, neck supple Throat exam: ABSENT: tonsillar exudate, tonsillogmegaly Neck exam: ABSENT: meningismus, tenderness, thyromegaly, tracheal deviation Respiratory exam: PRESENT: symmetrical, unlabored. ABSENT: tachypnea Cardiovascular exam: PRESENT: RRR, +S1, +S2 GI/Abdominal exam: PRESENT: soft. ABSENT: ascites, Brooks's sign, rebound, tenderness Gentrourinary exam: ABSENT: lesions Extremities exam: ABSENT: joint swelling Neurological exam: PRESENT: oriented to time, oriented to situation, reflexes normal, CN II-XII grossly intact Psychiatric exam: PRESENT: appropriate affect Skin exam: PRESENT: normal color. ABSENT: mottled, pallor, petechiae, urticaria Results Laboratory Results: 03/07/17 04:31 03/07/17 04:31 03/07/17 03/07/17 03/07/17 04:31 04:31 04:31 WBC 13.2 H RBC 3.82 L Hgb 11.9 L D Hct 35.0 L MCV 92 MCH 31.1 MCHC 33.9 RDW 14.3 H Plt Count 116 L Sodium 139.6 Potassium 3.9 Chloride 106 Carbon Dioxide 25 Anion Gap 9 BUN 24 H Creatinine 1.06 Est GFR ( Amer) > 60 Est GFR (Non-Af Amer) > 60 Glucose 118 H Calcium 8.8 TSH 0.38 L Impressions: Head CT 03/06/17 00:00 IMPRESSION: 2.9 CM LEFT MAXILLARY SINUS MUCOUS RETENTION CYST. OTHERWISE UNREMARKABLE HEAD CT WITH AND WITHOUT CONTRAST. Limited or Localized CT 03/06/17 14:21 IMPRESSION: NO SIGNIFICANT OR ACUTE PROCESS IN THE ABDOMEN OR PELVIS. Assessment & Plan - Diagnosis (1) Nausea & vomiting Plan: Question possible peptic ulcer disease. Can proceed with upper endoscopy. Risks benefits and alternatives of the procedure I explained to the patient detail and informed consent was obtained. Further recommendations to follow. Can be started on antiemetic as well as PPI. If EGD is negative consider gallbladder workup with possible ultrasound and HIDA scan. It was felt that his symptoms were not consistent with his nephrolithiasis. His recent treatment for shingles included both Valtrex as well as steroids which would not cause significant nausea and vomiting anyway. - Time Time Spent: 50 to 70 Minutes
[2017-03-07] MEDS: PROMETHAZINE HCL INJ 25 MG/1 ML VIAL IV PRN ×2 (12:07→20:38)
[2017-03-07] MEDS: HYDROMORPHONE HCL INJ/PF 2 MG/ML AMPULE IV PRN ×3 (12:07→20:38)
[2017-03-07] MEDS: PANTOPRAZOLE SODIUM 40 MG VIAL IV SCH ×2 (12:12→21:39)
[2017-03-08] MEDS: HYDROMORPHONE HCL INJ/PF 2 MG/ML AMPULE IV PRN ×5 (02:27→20:25)
[2017-03-08] MEDS: PROMETHAZINE HCL INJ 25 MG/1 ML VIAL IV PRN ×3 (02:27→16:16)
[2017-03-08 06:04] LABS: ANION GAP 8 (5-19); BLOOD UREA NITROGEN 17 mg/dL (7-20); CALCIUM 8.7 mg/dL (8.4-10.2); CARBON DIOXIDE 24 mmol/L (22-30); CHLORIDE 108 mmol/L (98-107); CREATININE RESULT 0.95 mg/dL (0.52-1.25); GLUCOSE 86 mg/dL (75-110); POTASSIUM 4.2 mmol/L (3.6-5.0); SODIUM 140.1 mmol/L (137-145)
[2017-03-08] MEDS: ONDANSETRON HCL INJ/PF 4 MG/2 ML SDV IV PRN (06:24)
--- NOTE | 2017-03-08 10:00 | PDOC PROGRESS REPORT ---
Subjective Progress Note for:: 03/08/17 Subjective:: Still w/ nausea and vomiting. Had CT of abd/pelvis w/ oral contrast, no chills nor fever. No diarrhea. Physical Exam Vital Signs: Temp Pulse Resp BP Pulse Ox 98.0 F 58 L 18 158/85 H 100 03/08/17 08:03 03/08/17 08:03 03/08/17 08:03 03/08/17 08:03 03/08/17 08:03 Intake & Output 03/07/17 03/08/17 03/09/17 06:59 06:59 06:59 Intake Total 1812 5746 Balance 1812 5746 Weight 73.6 kg 70.7 kg General appearance: PRESENT: mild distress - due to nausea Head exam: PRESENT: normocephalic Eye exam: PRESENT: EOMI Mouth exam: PRESENT: moist, neck supple Neck exam: ABSENT: JVD Respiratory exam: PRESENT: clear to auscultation malik Cardiovascular exam: PRESENT: RRR. ABSENT: gallop GI/Abdominal exam: PRESENT: soft. ABSENT: distended Extremities exam: ABSENT: pedal edema Neurological exam: PRESENT: alert, awake, oriented to situation Skin exam: PRESENT: dry, warm. ABSENT: cyanosis Results Laboratory Results: 03/07/17 04:31 03/08/17 05:13 03/07/17 03/08/17 04:31 05:13 Sodium 140.1 Potassium 4.2 Chloride 108 H Carbon Dioxide 24 Anion Gap 8 BUN 17 Creatinine 0.95 Est GFR ( Amer) > 60 Est GFR (Non-Af Amer) > 60 Glucose 86 Calcium 8.7 Free T4 0.98 Impressions: Head CT 03/06/17 00:00 IMPRESSION: 2.9 CM LEFT MAXILLARY SINUS MUCOUS RETENTION CYST. OTHERWISE UNREMARKABLE HEAD CT WITH AND WITHOUT CONTRAST. Limited or Localized CT 03/06/17 14:21 IMPRESSION: NO SIGNIFICANT OR ACUTE PROCESS IN THE ABDOMEN OR PELVIS. Assessment & Plan - Diagnosis (1) Intractable vomiting Qualifiers: Vomiting type: unspecified Is this a current diagnosis for this admission?: Yes (2) Abdominal pain Qualifiers: Abdominal location: generalized Qualified Code(s): R10.84 - Generalized abdominal pain Is this a current diagnosis for this admission?: Yes (3) Leukocytosis Qualifiers: Leukocytosis type: unspecified Qualified Code(s): D72.829 - Elevated white blood cell count, unspecified Is this a current diagnosis for this admission?: Yes - Time Time Spent with patient: 15-24 minutes - Plan Summary Plan Summary: Re-check WBC and electrolytes. Await repeat CT and endoscopy.
[2017-03-08 11:04] LABS: HEMATOCRIT 36.7 % (37.9-51.0); HEMOGLOBIN 12.4 g/dL (13.5-17.0); HGB HCT DIFFERENCE 0.5; MEAN CORPUSCULAR HEMOGLOBIN 30.9 pg (27.0-33.4); MEAN CORPUSCULAR HGB CONC 33.8 g/dL (32.0-36.0); MEAN CORPUSCULAR VOLUME 92 fl (80-97); RED BLOOD COUNT 4.01 10^6/uL (4.35-5.55); RED CELL DISTRIBUTION WIDTH 14.3 % (11.5-14.0); WHITE BLOOD COUNT 6.3 10^3/uL (4.0-10.5)
[2017-03-08] MEDS: PANTOPRAZOLE SODIUM 40 MG VIAL IV SCH ×2 (11:28→21:37)
[2017-03-08] MEDS: NORMAL SALINE 1000 ML 1,000 ML IV PRN (11:29)
[2017-03-08] MEDS: DOCUSATE SODIUM 100 MG CAPSULE PO SCH ×2 (11:30→17:20)
[2017-03-08] MEDS: ENOXAPARIN SODIUM INJ 40 MG/0.4 ML DISP.SYRIN SUBCUT SCH (11:30)
--- NOTE | 2017-03-08 12:42 | RADIOLOGY REPORT (SQ) ---
EXAM DESCRIPTION: CT ABD/PELVIS ORAL ONLY COMPLETED DATE/TIME: 03/07/2017 10:13 pm REASON FOR STUDY: Abdominal pain, nausea, vomiting COMPARISON: None. TECHNIQUE: CT scan of the abdomen and pelvis performed with oral contrast and no intravenous contras t. Images reviewed with lung, soft tissue, and bone windows. Reconstructed coronal and sagittal MPR i mages reviewed. All images stored on PACS. All CT scanners at this facility use dose modulation, iterative reconstruction, and/or weight based d osing when appropriate to reduce radiation dose to as low as reasonably achievable (ALARA). [facility]: Dose Right [facility]: CareDose [facility]: Dose Right [facility]: Teradose 4D [facility]: [employer] RADIATION DOSE: Up-to-date CT equipment and radiation dose reduction techniques were employed. CTDIv ol: 4.9 mGy. DLP: 249 mGy-cm.mGy. LIMITATIONS: None. FINDINGS: LOWER CHEST: No significant findings. No nodules or infiltrates. NON-CONTRASTED LIVER, SPLEEN, ADRENALS: Evaluation limited by lack of IV contrast. No identified sign ificant masses. PANCREAS: No masses. No peripancreatic inflammatory changes. GALLBLADDER: No identified stones by CT criteria. No inflammatory changes to suggest cholecystitis. RIGHT KIDNEY AND URETER: No solid masses. No significant calcification. No hydronephrosis or hydroure ter. LEFT KIDNEY AND URETER: 1 mm stone lower pole. Mild dilatation of the UPJ. No definite ureteral sto ne. Small cortical cyst upper pole. AORTA AND RETROPERITONEUM: No aneurysm. No retroperitoneal masses or adenopathy. BOWEL AND PERITONEAL CAVITY: No obvious masses or inflammatory changes. No free fluid. APPENDIX: Normal. PELVIS, BLADDER, AND ABDOMINAL WALL: No abnormal pelvic masses. No abdominal wall hernias. Bladder un remarkable. BONES: No significant findings. OTHER: No other significant finding. IMPRESSION: Small left renal calculus. Mild dilatation of the left UPJ without definitive ureteral stone. This may be related to recent stone passage. Correlation with urinalysis may be of benefit. TECHNICAL DOCUMENTATION: JOB ID: [id number] Quality ID # [id number]: Final reports with documentation of one or more dose reduction techniques (e.g., Au tomated exposure control, adjustment of the mA and/or kV according to patient size, use of iterative reconstruction technique) 2010 [employer]- All Rights Reserved
[2017-03-08] MEDS ORDERED: PROPOFOL INJ 200 MG/20 ML VIAL IV ONE (12:50)
[2017-03-08] MEDS ORDERED: FENTANYL CITRATE INJ/PF 100 MCG/2 ML AMPUL IV PRN ×3 (13:18)
[2017-03-08] MEDS ORDERED: MORPHINE SULFATE 10 MG/ML INJ IV PRN (13:18)
[2017-03-08] MEDS ORDERED: MEPERIDINE HCL/PF INJ 25 MG/1 ML DISP.SYRIN IV PRN (13:18)
[2017-03-08] MEDS ORDERED: DIPHENHYDRAMINE HCL 50 MG/ML VIAL IV PRN (13:18)
[2017-03-08] MEDS ORDERED: OXYCODONE-ACETAMINOPHEN 5-325 MG TABLET PO PRN ×2 (13:18)
[2017-03-08] MEDS ORDERED: PROMETHAZINE HCL INJ 25 MG/1 ML VIAL IV PRN ×2 (13:18)
--- NOTE | 2017-03-08 14:32 | Operative Report ---
Operative Report DATE OF SURGERY: 03/08/17 Operative Report: The risks benefits and alternatives of the procedure explained to the patient in detail and informed consent is obtained.A GIF Olympus video scope was inserted into the patient's mouth and hypopharynx, the esophagus is identified intubated and insufflated,the scope was then advanced through the esophagus stomach and duodenum, retroflexion maneuver is done, the esophagus stomach and first and second portions of the duodenum examined PREOPERATIVE DIAGNOSIS: Nausea and vomiting, intractable POSTOPERATIVE DIAGNOSIS: Gastritis status post biopsy. Duodenitis. Mucosal specimens obtained to rule out Helicobacter pylori OPERATION: EGD with biopsy SURGEON: JULIANA DUTTA ANESTHESIA: LMAC TISSUE REMOVED OR ALTERED: As noted above COMPLICATIONS: None. ESTIMATED BLOOD LOSS: None. INTRAOPERATIVE FINDINGS: As noted above PROCEDURE: Patient tolerated procedure well. No immediate postprocedure complications are noted. Patient is sent back to his room in good condition. We will try to resume regular diet. We will wait on biopsies. Regular activity level. Patient can be follow-up as outpatient for further workup if needed.
[2017-03-09] MEDS: HYDROMORPHONE HCL INJ/PF 2 MG/ML AMPULE IV PRN ×3 (00:34→08:57)
[2017-03-09] MEDS: NORMAL SALINE 1000 ML 1,000 ML IV PRN ×3 (01:35→23:13)
[2017-03-09] MEDS: PROMETHAZINE HCL INJ 25 MG/1 ML VIAL IV PRN ×3 (08:57→23:13)
[2017-03-09] MEDS: PANTOPRAZOLE SODIUM 40 MG VIAL IV SCH ×2 (08:57→21:10)
[2017-03-09] MEDS: ENOXAPARIN SODIUM INJ 40 MG/0.4 ML DISP.SYRIN SUBCUT SCH (09:02)
[2017-03-09] MEDS: DOCUSATE SODIUM 100 MG CAPSULE PO SCH ×2 (09:02→17:07)
[2017-03-09] MEDS: OXYCODONE-ACETAMINOPHEN 5-325 MG TABLET PO PRN ×2 (13:55→20:40)
[2017-03-09] MEDS: ONDANSETRON HCL INJ/PF 4 MG/2 ML SDV IV PRN ×2 (14:30→19:44)
--- NOTE | 2017-03-09 14:30 | PDOC PROGRESS REPORT ---
Subjective Progress Note for:: 03/09/17 Subjective:: The patient's pain improved as well as nausea and vomiting but still with some nausea after oral intake. No diarrhea. Denies constipation. No dysuria urgency or frequency. Urine culture was negative. No chills or fever nor shortness of breath. CT scan of the abdomen and pelvis revealed nephrolithiasis on the left. There is findings suggestive that the patient may have passed a stone. Physical Exam Vital Signs: Temp Pulse Resp BP Pulse Ox 98.4 F 48 L 16 149/78 H 100 03/09/17 11:28 03/09/17 11:28 03/09/17 11:28 03/09/17 11:28 03/09/17 11:28 Intake & Output 03/08/17 03/09/17 03/10/17 06:59 06:59 06:59 Intake Total 5746 5078 337 Output Total 1075 1200 Balance 5746 4003 -863 Weight 70.7 kg 75 kg General appearance: PRESENT: no acute distress, cooperative Mouth exam: PRESENT: moist, neck supple Neck exam: ABSENT: JVD Respiratory exam: PRESENT: clear to auscultation malik Cardiovascular exam: PRESENT: RRR GI/Abdominal exam: PRESENT: soft. ABSENT: distended Extremities exam: ABSENT: pedal edema Neurological exam: PRESENT: alert, awake, oriented to situation Skin exam: PRESENT: dry, warm. ABSENT: cyanosis Results Laboratory Results: 03/08/17 05:13 03/08/17 05:13 Impressions: Head CT 03/06/17 00:00 IMPRESSION: 2.9 CM LEFT MAXILLARY SINUS MUCOUS RETENTION CYST. OTHERWISE UNREMARKABLE HEAD CT WITH AND WITHOUT CONTRAST. Limited or Localized CT 03/06/17 14:21 IMPRESSION: NO SIGNIFICANT OR ACUTE PROCESS IN THE ABDOMEN OR PELVIS. Abdomen/Pelvis CT 03/07/17 00:00 IMPRESSION: Small left renal calculus. Mild dilatation of the left UPJ without definitive ureteral stone. This may be related to recent stone passage. Correlation with urinalysis may be of benefit. Assessment & Plan - Diagnosis (1) Intractable vomiting Qualifiers: Vomiting type: unspecified Is this a current diagnosis for this admission?: Yes (2) Abdominal pain Qualifiers: Abdominal location: generalized Qualified Code(s): R10.84 - Generalized abdominal pain Is this a current diagnosis for this admission?: Yes (3) Leukocytosis Qualifiers: Leukocytosis type: unspecified Qualified Code(s): D72.829 - Elevated white blood cell count, unspecified Is this a current diagnosis for this admission?: Yes - Time Time Spent with patient: 15-24 minutes - Plan Summary Plan Summary: Patient improving. Endoscopy did not reveal acute ulcers. It showed gastritis , we will keep proton pump inhibitor for now. We will discontinue Dilaudid and try him on oral oxycodone as needed. Continue antiemetics. If patient continues to improve likely can be discharged in the morning.
[2017-03-09] MEDS: MORPHINE SULFATE 10 MG/ML INJ IV PRN (22:30)
[2017-03-10] MEDS: ONDANSETRON HCL INJ/PF 4 MG/2 ML SDV IV PRN ×3 (00:27→08:09)
[2017-03-10] MEDS: MORPHINE SULFATE 10 MG/ML INJ IV PRN ×2 (04:22→08:14)
--- NOTE | 2017-03-10 04:41 | RADIOLOGY REPORT (SQ) ---
EXAM DESCRIPTION: ACUTE ABDOMEN SERIES COMPLETED DATE/TIME: 03/10/2017 4:12 am REASON FOR STUDY: N/V COMPARISON: CT, 03/07/2017. NUMBER OF VIEWS: Three views. TECHNIQUE: Frontal chest, supine abdomen and upright/decubitus abdomen radiographic images acquired. LIMITATIONS: None. FINDINGS: CHEST: Lungs clear of infiltrates. FREE AIR: None. No abnormal gas collections. BOWEL GAS PATTERN: Nonobstructive pattern. No dilated loops or air fluid levels. Small residual intr a colonic contrast. Moderate stool retention of the right and transverse colon. CALCIFICATIONS: No suspicious calcifications. HARDWARE: None in the abdomen. SOFT TISSUES: No gross mass or suggestion of organomegaly. BONES: No acute fracture. No worrisome bone lesions. OTHER: No other significant finding. IMPRESSION: NO RADIOGRAPHIC EVIDENCE FOR ACUTE ABDOMINAL DISEASE. TECHNICAL DOCUMENTATION: JOB ID: [id number] [employer]- All Rights Reserved
[2017-03-10 05:00] LABS: ABSOLUTE LYMPHOCYTES (AUTO) 1.3 10^3/uL (0.5-4.7); ABSOLUTE MONOCYTES (AUTO) 0.3 10^3/uL (0.1-1.4); ABSOLUTE NEUT (AUTO) 5.9 10^3/uL (1.7-8.2); BASOPHILS % (AUTO) 0.5 % (0-2); EOSINOPHILS % (AUTO) 0.2 % (0-6); HEMATOCRIT 39.6 % (37.9-51.0); HEMOGLOBIN 13.8 g/dL (13.5-17.0); HGB HCT DIFFERENCE 1.8; MEAN CORPUSCULAR HGB CONC 34.7 g/dL (32.0-36.0); MONOCYTES % (AUTO) 4.2 % (3-13); RED BLOOD COUNT 4.45 10^6/uL (4.35-5.55); RED CELL DISTRIBUTION WIDTH 13.8 % (11.5-14.0); SEGMENTED NEUTROPHILS % (AUTO) 78.1 % (42-78); WHITE BLOOD COUNT 7.6 10^3/uL (4.0-10.5)
[2017-03-10 05:01] LABS: MEAN CORPUSCULAR VOLUME 89 fl (80-97)
[2017-03-10 05:03] LABS: ANION GAP 11 (5-19); BLOOD UREA NITROGEN 12 mg/dL (7-20); CALCIUM 8.9 mg/dL (8.4-10.2); CARBON DIOXIDE 23 mmol/L (22-30); CHLORIDE 106 mmol/L (98-107); CREATININE RESULT 0.97 mg/dL (0.52-1.25); GLUCOSE 115 mg/dL (75-110); LIPASE 53.9 U/L (23-300); MAGNESIUM 1.5 mg/dL (1.6-2.3); POTASSIUM 3.2 mmol/L (3.6-5.0); SODIUM 140.3 mmol/L (137-145)
[2017-03-10] MEDS: PROMETHAZINE HCL INJ 25 MG/1 ML VIAL IV PRN ×2 (05:51→12:44)
[2017-03-10] MEDS: NORMAL SALINE 1000 ML 1,000 ML IV PRN (05:52)
[2017-03-10] MEDS: POTASSI CL 20 MEQ/50 ML RIDER 20 MEQ/50 ML RTUPB IV SCH ×3 (06:36→11:37)
[2017-03-10] MEDS: MAGNESIUM SULFATE/D5W 1 GM/100 ML RTUPB IV SCH ×2 (06:37→07:29)
[2017-03-10] MEDS ORDERED: DEXTROSE 40% GEL 15 GM TUBE PO PRN ×2 (07:48)
[2017-03-10] MEDS ORDERED: GLUCAGON,HUMAN RECOMB 1 MG INJ SUBCUT PRN (07:48)
[2017-03-10] MEDS ORDERED: DEXTROSE 50%-WATER 25 GM/50 ML DISP.SYRIN IV PRN ×2 (07:48)
[2017-03-10] MEDS: PANTOPRAZOLE SODIUM 40 MG VIAL IV SCH (08:08)
[2017-03-10] MEDS: ENOXAPARIN SODIUM INJ 40 MG/0.4 ML DISP.SYRIN SUBCUT SCH (08:12)
[2017-03-10] MEDS: DOCUSATE SODIUM 100 MG CAPSULE PO SCH (08:15)
--- NOTE | 2017-03-10 09:13 | PDOC PROGRESS REPORT ---
Subjective Progress Note for:: 03/10/17 Subjective:: Started to developed nausea, vomiting and abdominal pain. No fever, chills, SOB. Patient got anti-emetics and narcotics and sx got better. Now resting comfortably. Physical Exam Vital Signs: Temp Pulse Resp BP Pulse Ox 98.2 F 59 L 18 144/73 H 100 03/10/17 04:24 03/10/17 07:00 03/10/17 04:24 03/10/17 05:16 03/10/17 04:24 Intake & Output 03/09/17 03/10/17 03/11/17 06:59 06:59 06:59 Intake Total 5078 4160 Output Total 1075 4125 Balance 4003 35 Weight 75 kg 72.8 kg General appearance: PRESENT: no acute distress, other - resting comfortably Head exam: PRESENT: normocephalic Eye exam: PRESENT: conjunctiva pink Mouth exam: PRESENT: moist Neck exam: ABSENT: JVD Respiratory exam: PRESENT: clear to auscultation malik. ABSENT: rhonchi, wheezes Cardiovascular exam: PRESENT: RRR. ABSENT: gallop GI/Abdominal exam: PRESENT: hypoactive bowel sounds. ABSENT: distended Extremities exam: ABSENT: pedal edema Psychiatric exam: ABSENT: agitated Focused psych exam: ABSENT: restlessness Skin exam: PRESENT: dry, warm. ABSENT: cyanosis Results Laboratory Results: 03/10/17 04:38 03/10/17 04:38 03/10/17 03/10/17 04:38 04:38 WBC 7.6 RBC 4.45 Hgb 13.8 Hct 39.6 MCV 89 MCH 31.0 MCHC 34.7 RDW 13.8 Plt Count 135 L Seg Neutrophils % 78.1 H Lymphocytes % 17.0 Monocytes % 4.2 Eosinophils % 0.2 Basophils % 0.5 Absolute Neutrophils 5.9 Absolute Lymphocytes 1.3 Absolute Monocytes 0.3 Absolute Eosinophils 0.0 Absolute Basophils 0.0 Sodium 140.3 Potassium 3.2 L Chloride 106 Carbon Dioxide 23 Anion Gap 11 BUN 12 Creatinine 0.97 Est GFR ( Amer) > 60 Est GFR (Non-Af Amer) > 60 Glucose 115 H Calcium 8.9 Magnesium 1.5 L Lipase 53.9 Impressions: Head CT 03/06/17 00:00 IMPRESSION: 2.9 CM LEFT MAXILLARY SINUS MUCOUS RETENTION CYST. OTHERWISE UNREMARKABLE HEAD CT WITH AND WITHOUT CONTRAST. Limited or Localized CT 03/06/17 14:21 IMPRESSION: NO SIGNIFICANT OR ACUTE PROCESS IN THE ABDOMEN OR PELVIS. Abdomen/Pelvis CT 03/07/17 00:00 IMPRESSION: Small left renal calculus. Mild dilatation of the left UPJ without definitive ureteral stone. This may be related to recent stone passage. Correlation with urinalysis may be of benefit. Acute Abdomen Series 03/10/17 00:00 IMPRESSION: NO RADIOGRAPHIC EVIDENCE FOR ACUTE ABDOMINAL DISEASE. Assessment & Plan - Diagnosis (1) Intractable vomiting Qualifiers: Vomiting type: unspecified Is this a current diagnosis for this admission?: Yes (2) Abdominal pain Qualifiers: Abdominal location: generalized Qualified Code(s): R10.84 - Generalized abdominal pain Is this a current diagnosis for this admission?: Yes (3) Leukocytosis Qualifiers: Leukocytosis type: unspecified Qualified Code(s): D72.829 - Elevated white blood cell count, unspecified Is this a current diagnosis for this admission?: Yes - Time Time Spent with patient: 25-34 minutes - Plan Summary Plan Summary: NPO. Continue IVF. Obtain GB US. Consult surgery service. Continue supportive care.
--- NOTE | 2017-03-10 09:58 | RADIOLOGY REPORT (SQ) ---
EXAM DESCRIPTION: U/S ABDOMEN COMPLETE W/DOPPLER COMPLETED DATE/TIME: 03/10/2017 9:40 am REASON FOR STUDY: abdominal pain, cholecystitis COMPARISON: None. TECHNIQUE: Dynamic and static grayscale images acquired of the abdomen and recorded on PACS. Nasho eber selected color Doppler and spectral images recorded. LIMITATIONS: None. FINDINGS: PANCREAS: No masses. Visualized pancreatic duct normal caliber. LIVER: No masses. Echotexture normal. LIVER VASCULATURE: Normal directional flow of the main portal vein and hepatic veins. GALLBLADDER: No stones. Normal wall thickness. No pericholecystic fluid. ULTRASOUND-DETECTED ESCALONA'S SIGN: Negative. INTRAHEPATIC DUCTS AND COMMON DUCT: CBD and intrahepatic ducts normal caliber. No filling defects. INFERIOR VENA CAVA: Normal flow. AORTA: No aneurysm. RIGHT KIDNEY: Normal size. Normal echogenicity. No solid or suspicious masses. No hydronephros is. No calcifications. LEFT KIDNEY: Normal size. 2 cm cyst upper pole. No solid or suspicious masses. No hydronephros is. No calcifications. SPLEEN: Normal size. No solid masses. PERITONEAL AND PLEURAL SPACES: No ascites or effusions. OTHER: No other significant finding. IMPRESSION: No acute findings in the abdomen. TECHNICAL DOCUMENTATION: JOB ID: [id number] [employer]- All Rights Reserved
[2017-03-10] MEDS: OXYCODONE-ACETAMINOPHEN 5-325 MG TABLET PO PRN (12:43)
[2017-03-10 14:55] VITALS: BP 158/85
--- NOTE | 2017-03-10 15:01 | PDOC DISCHARGE SUMMARY ---
General - Admit/Disc Date/PCP Admission Date/Primary Care Provider: 03/10/17 09:13 Discharge Date: 03/10/17 - Discharge Diagnosis (1) Intractable vomiting Is this a current diagnosis for this admission?: Yes Summary: Likely due to nephrolithiasis (2) Abdominal pain Is this a current diagnosis for this admission?: Yes Summary: gastritis/duodenitis (3) Leukocytosis Is this a current diagnosis for this admission?: Yes - Additional Information Resuscitation Status: Full Code Discharge Diet: As Tolerated Discharge Activity: Activity As Tolerated, Balance Activity w/Rest Home Medications: Omeprazole Magnesium [Prilosec Otc] 20 mg PO BID #60 tablet. 03/10/17 Promethazine HCl [Phenergan 25 mg Tablet] 25 mg PO Q6H PRN #30 tablet 03/10/17 Tramadol HCl [Ultram] 50 mg PO TID PRN #25 tablet 03/10/17 Additional Information: Basic metabolic panel out-patient w/ primary physician. History of Present Illness Patient complains of: Intractable nausea and vomiting History of Present Illness: Patient is a 36-year-old male with a history of kidney stones and lithotripsy in the past develop abdominal pain on the left with associated nausea and vomiting while trying to help his father clean the porch. There is no recent travel nor any intake of leftover food. He denies diarrhea dysuria urgency or frequency nor hematuria. No chills or fever associated as well. Family has taken the same food without any symptoms. Due to symptoms persistence the patient went to the emergency room. Had a CT scan that was essentially noncontributory. Patient was seen by the urologist. Was not felt that his symptoms were due to his kidney stone. Has was recently treated for shingles with steroids and Valtrex and completed it last week. In the emergency room WBC was elevated to 28,000. Despite IV fluids and antiemetics and analgesics symptoms have not subsided. Patient was then referred for admission. Patient denies any penile discharge or any rashes well. Treatment for shingles significantly improved of which involvement includes left upper eyelid as well as the left lower rib cage. Hospital Course Hospital Course: The patient was admitted to telemetry. IV fluid was started. Intravenous analgesics and anti-emetics were administered. Electrolytes were monitored and was replaced. Serial WBC was obtained and eventually normalized. Urine culture was negative. Patient evaluated by urology in ED and reported sx were non- urological. Patient was placed on PPI and GI was consulted, follow-up abdominal CT showed left nephrolithiasis w/ findings of recent passage of stone. He underwent EGD and noted duodenitis and gastritis. Bx was negative for malignancy nor H. pylori. His IV narcotics were D/C and transitioned to PO. He had another episode of N/V and recurrence of abdominal pain. Surgery was consulted and RUQ US obtained was negative. Surgery states no surgical abdomen present. At this point, his diet was resumed and was able to tolerate. The rest of the hospital stay was unremarkable. Physical Exam Vital Signs: Temp Pulse Resp BP Pulse Ox 98.7 F 56 L 16 127/77 H 100 03/10/17 11:38 03/10/17 11:38 03/10/17 11:38 03/10/17 11:38 03/10/17 11:38 General appearance: PRESENT: no acute distress, cooperative Head exam: PRESENT: normocephalic Eye exam: PRESENT: EOMI Mouth exam: PRESENT: moist, neck supple Neck exam: ABSENT: JVD Respiratory exam: PRESENT: clear to auscultation malik Cardiovascular exam: PRESENT: RRR GI/Abdominal exam: PRESENT: normal bowel sounds, soft. ABSENT: distended Extremities exam: ABSENT: pedal edema Neurological exam: PRESENT: alert, awake, oriented to person, oriented to place , oriented to time, oriented to situation Skin exam: PRESENT: dry, warm. ABSENT: cyanosis Results Impressions: Head CT 03/06/17 00:00 IMPRESSION: 2.9 CM LEFT MAXILLARY SINUS MUCOUS RETENTION CYST. OTHERWISE UNREMARKABLE HEAD CT WITH AND WITHOUT CONTRAST. Limited or Localized CT 03/06/17 14:21 IMPRESSION: NO SIGNIFICANT OR ACUTE PROCESS IN THE ABDOMEN OR PELVIS. Abdomen/Pelvis CT 03/07/17 00:00 IMPRESSION: Small left renal calculus. Mild dilatation of the left UPJ without definitive ureteral stone. This may be related to recent stone passage. Correlation with urinalysis may be of benefit. Abdomen Ultrasound 03/10/17 00:00 IMPRESSION: No acute findings in the abdomen. Acute Abdomen Series 03/10/17 00:00 IMPRESSION: NO RADIOGRAPHIC EVIDENCE FOR ACUTE ABDOMINAL DISEASE. Qualifiers PATEINT BEING DISCHARGED WITH ANY OF THE FOLLOWING DIAGNOSIS?: No Plan Discharge Plan: Follow-up w/ primary physician in 1 week. Time Spent: Less than 30 Minutes
--- NOTE | 2017-03-10 15:57 | CONSULTATION REPORT E ---
Consultation Report NAME: SKINNY FALLON : 1980 AGE: 36Y DATE: 03/10/2017 330 A TO: PACO REYNOLDS M.D. FROM: MACIEL NULL M.D. Requesting Physician SUMMARY OF CONSULTATION: Patient is a 36-year-old male with a recent history of shingles left chest wall, recurrent, treated with Valtrex and prednisone, who presents to the emergency department with acute onset abdominal pain, left-sided, associated with nausea and vomiting. He was evaluated and found to have evidence of a leukocytosis and was admitted for possible gastroenteritis. Over the ensuing 4 days, he underwent multiple imaging studies, including multiple CT scans of the abdomen and pelvis with IV and oral contrast and also unenhanced CT scan, gallbladder ultrasonography, upper endoscopy by Dr. Corado, urologic consultation by Dr. Bach, all failing to identify an organic explanation for the patient's symptoms. Patient was going to go home today, but developed some abdominal pain, nausea, and vomiting last night and early this morning. At this time, the patient is complaining of some left lower quadrant pain. PAST MEDICAL AND SURGICAL HISTORY: Defer to history and physical documented. SOCIAL HISTORY: The patient does admit to smoking marijuana. He is taking pain medication for shingles. PHYSICAL EXAMINATION: VITAL SIGNS: Stable. PSYCHIATRIC: Alert and oriented x4. NEUROLOGIC: Grossly intact in all extremities. HEAD: Eyes without icterus. NECK: No adenopathy. LUNGS: Diminished in bases bilateral. HEART: Without murmur or gallop. ABDOMEN: Soft. No peritoneal signs. No rigidity. No organomegaly. GENITOURINARY: There are no groin hernias. LABORATORY PROFILE: Essentially unremarkable for 03/10/2017, except for a potassium of 3.2. Blood sugar 115. Magnesium 1.5. IMPRESSION: Abdominal pain, nausea, and vomiting of uncertain etiology; extensive gastroenterologic and radiologic workup failing to reveal etiology of patient's symptoms. At this time, the patient does not have evidence of an acute abdomen and does not need surgical intervention. I discussed the above with Dr. Null. I suggested correcting electrolytes. Reconsult Surgery if clinically indicated. DICTATING PHYSICIAN: PACO REYNOLDS M.D. [id number] Y#: [id number] ID: [id number] JOB#: [id number] ACCT: [id number] cc:PACO REYNOLDS M.D. >
== END 2017-03-10 15:15 | disposition home or self-care (01) | DRG 694 ==
LOC: ER 12:33 → UNDOADMIN 17:54 → EH 17:54 → INTOOBSV 18:36 → EH 18:36 → 3S 19:59 → OBSVTOIN 03-10 09:13
PROVIDERS: ADMIT Family Medicine; ATTEND Family Medicine
PROC: 0DB68ZX Excision of Stomach, Via Natural or Artificial Opening Endoscopic, Diagnostic (ICD-10-PCS; principal; 2017-03-08 13:30)
DX: N20.0 Calculus of kidney (principal); K29.80 Duodenitis without bleeding; K29.50 Unspecified chronic gastritis without bleeding; R10.84 Generalized abdominal pain; D72.829 Elevated white blood cell count, unspecified; F12.90 Cannabis use, unspecified, uncomplicated; F17.210 Nicotine dependence, cigarettes, uncomplicated; Z87.442 Personal history of urinary calculi; Z82.49 Family history of ischemic heart disease and other diseases of the circulatory system; Z80.9 Family history of malignant neoplasm, unspecified; Z83.3 Family history of diabetes mellitus
CPT/HCPCS: 36415; 43239; 70470; 740; 74022; 74176; 76380; 76700; 80048; 80053; 81001; 83690; 83735; 84439; 84443; 85025; 85027; 87040; 87086; 88305; 88342; 93976; 96361; 96374; 96375; 96376; 99285; G0378; J0696; J1170; J1650; J1885; J2270; J2405; J2550; J2704; J3475; J3480; J3490; J7030; S0164

== ENCOUNTER 2017-03-10 22:58 | Emergency (ER) | payer SELFPAY ==
[2017-03-11 00:51] LABS: ABSOLUTE BASOPHILS # (AUTO) 0.1 10^3/uL (0.0-0.2); ABSOLUTE EOSINOPHILS # (AUTO) 0.1 10^3/uL (0.0-0.6); ABSOLUTE LYMPHOCYTES (AUTO) 1.6 10^3/uL (0.5-4.7); ABSOLUTE MONOCYTES (AUTO) 0.4 10^3/uL (0.1-1.4); ABSOLUTE NEUT (AUTO) 15.3 10^3/uL (1.7-8.2); BASOPHILS % (AUTO) 0.4 % (0-2); EOSINOPHILS % (AUTO) 0.4 % (0-6); HEMOGLOBIN 13.2 g/dL (13.5-17.0); HGB HCT DIFFERENCE 1.6; LYMPHOCYTES % (AUTO) 9.3 % (13-45); MEAN CORPUSCULAR HEMOGLOBIN 30.8 pg (27.0-33.4); MEAN CORPUSCULAR HGB CONC 34.7 g/dL (32.0-36.0); MEAN CORPUSCULAR VOLUME 89 fl (80-97); MONOCYTES % (AUTO) 2.3 % (3-13); RED BLOOD COUNT 4.27 10^6/uL (4.35-5.55); RED CELL DISTRIBUTION WIDTH 13.7 % (11.5-14.0); SEGMENTED NEUTROPHILS % (AUTO) 87.6 % (42-78); VENOUS BLOOD HCO3 27.6 mmol/L (20-32); VENOUS BLOOD PCO2 52.3 mmHg (35-63); VENOUS BLOOD PH 7.34 (7.30-7.42)
[2017-03-11 01:04] LABS: ALANINE AMINOTRANSFERASE 20 U/L (21-72); ALBUMIN 3.8 g/dL (3.5-5.0); ALKALINE PHOSPHATASE 49 U/L (38-126); ANION GAP 12 (5-19); ASPARTATE AMINO TRANSFERASE 15 U/L (17-59); BILIRUBIN,DIRECT 0.3 mg/dL (0.0-0.4); BILIRUBIN,TOTAL 1.7 mg/dL (0.2-1.3); BLOOD UREA NITROGEN 11 mg/dL (7-20); CALCIUM 10.1 mg/dL (8.4-10.2); CARBON DIOXIDE 27 mmol/L (22-30); CHLORIDE 105 mmol/L (98-107); CREATININE RESULT 1.01 mg/dL (0.52-1.25); GLUCOSE 110 mg/dL (75-110); POTASSIUM 3.9 mmol/L (3.6-5.0); SODIUM 143.8 mmol/L (137-145); TOTAL PROTEIN 6.8 g/dL (6.3-8.2); WHITE BLOOD COUNT 17.5 10^3/uL (4.0-10.5)
[2017-03-11] MEDS ORDERED: MORPHINE SULFATE 10 MG/ML INJ IV ONE ×3 (01:06→06:46)
[2017-03-11] MEDS ORDERED: NORMAL SALINE 1000 ML 1,000 ML IV ONE (01:07)
--- NOTE | 2017-03-11 01:10 | ER Document Report ---
ED General - General TRAVEL OUTSIDE OF THE [place] IN LAST 30 DAYS: No <ALOK BARKER - Last Filed: 03/11/17 06:56> <SEBASTIAN GUTIERREZ - Last Filed: 03/11/17 14:15> - General Chief Complaint: Abdominal Pain Stated Complaint: FEVER,ABDOMINAL PAIN Time Seen by Provider: 03/11/17 00:46 Notes: Patient is a 36-year-old male who presents with complaint of left lower quadrant abdominal pain. He was just discharged from the hospital was not yesterday. That time he had multiple CT scans, surgery consult, and GI consult. Endoscopy which showed some gastritis and duodenitis. He had a leukocytosis of 20,000 when he first was first admitted. It trended down to normal by the time of discharge. Patient says he is still having some pain was discharged but after he got home his pain gradually got worse and then he spiked a fever of 102.2. He took Tylenol earlier today and pain continue worse and therefore came to ER. Currently his temp is 98.7 with a heart rate of 116. He does have history of kidney stones. After eating a discharge summary 130s that he may have just passed a kidney stone being CT scan showed some dilation of the area of the ureter consistent with possible recently passed stone. His urinalysis was negative at that time without signs of infections. The patient now complains of severe left lower quadrant abdominal pain. He does have a history of several kidney stones. He has had ureteral stents as well as lithotripsy in the past with him. He is originally from [facility] and that is where his urologist was. No other complaints at this time. (ALOK BARKER) - Related Data Allergies/Adverse Reactions: No Known Allergies Allergy (Verified 03/10/17 23:52) Past Medical History - Social History Smoking Status: Unknown if Ever Smoked Frequency of alcohol use: None Drug Abuse: None Family History: CAD, DM, Hypertension, Malignancy, Other - Mother and brother have SVT long QT and he states have both had a heart attack and on pacemaker defibrillator Patient has suicidal ideation: No Patient has homicidal ideation: No Renal/ Medical History: Reports: Hx Kidney Stones. Denies: Hx Peritoneal Dialysis Past Surgical History: Reports: Hx Kidney (Renal Surgery) - lithrotripsy, Other - lithotrypsy - Immunizations Immunizations up to date: Yes Hx Diphtheria, Pertussis, Tetanus Vaccination: No <BARKERBRITTANIALOK - Last Filed: 03/11/17 06:56> Review of Systems <BARKERBRITTANIALOK - Last Filed: 03/11/17 06:56> <SEBASTIAN GUTIERREZ - Last Filed: 03/11/17 14:15> - Review of Systems Notes: My Normal Review Basic REVIEW OF SYSTEMS: CONSTITUTIONAL : Denies fever, chills, or sweats. Denies recent illness. RESPIRATORY: Denies cough, cold, or chest congestion. Denies shortness of breath, difficulty breathing, or wheezing. GASTROINTESTINAL: Lower quadrant abdominal pain GENITOURINARY: Denies difficulty urinating, painful urination, burning, frequency, or blood in urine. MUSCULOSKELETAL: Denies neck or back pain or joint pain or swelling. SKIN: Denies rash or skin lesions. NEUROLOGICAL: Denies altered mental status or loss of consciousness. Denies headache. Denies weakness or paralysis or loss of use of either side. Denies problems with gait or speech. Denies sensory or motor loss. ALL OTHER SYSTEMS REVIEWED AND NEGATIVE. (ALOK BARKER) Physical Exam <BARKERALOK - Last Filed: 03/11/17 06:56> <MATTSEBASTIAN - Last Filed: 03/11/17 14:15> - Vital signs Vitals: Temp Pulse Resp BP Pulse Ox 98.7 F 116 H 18 132/69 H 98 03/10/17 23:05 03/10/17 23:05 03/10/17 23:05 03/10/17 23:05 03/10/17 23:05 - Notes Notes: General Appearance: Well nourished, alert, cooperative, no acute distress, moderate obvious discomfort. Vitals: reviewed, See vital signs table. Head: no swelling or tenderness to the head Eyes: PERRL, EOMI, Conjuctiva clear Mouth: No decreasd moisture Throat: No tonsillar inflammation, No airway obstruction, No lymphadenopathy Lungs: No wheezing, No rales, No rhonci, No accessory muscle use, good air exchange bilaterally. Heart: Normal rate, Regular rythm, No murmur, no rub Abdomen: Normal BS, soft, No rigidity, moderate left lower quadrant abdominal tenderness to palpation, No guarding, no rebound, no abdominal masses, no organomegaly Rectal exam: normal rectal tone. brown stool without gross blood. No masses felt. Extremities: strength 5/5 in all extremities, good pulses in all extremities, no swelling or tenderness in the extremities, no edema. Skin: warm, dry, appropriate color, no rash Neuro: speech clear, oriented x 3, normal affect, responds appropriately to questions. (ALOK BARKER) Course - Laboratory Result Diagrams: 03/11/17 00:30 03/11/17 00:30 <ALOK BARKER - Last Filed: 03/11/17 06:56> - Laboratory Result Diagrams: 03/11/17 00:30 03/11/17 00:30 <SEBASTIAN GUTIERREZ - Last Filed: 03/11/17 14:15> - Re-evaluation Re-evalutation: 03/11/17 03:25 Patient continues to have some pain. I will give another dose of pain medicine. Waiting for the results of his x-ray and have also ordered an ultrasound. 03/11/17 05:59 Patient continues to have pain. My concern is the patient has recurrent pain, fever, leukocytosis. I did speak with the surgeon, Dr. Gonzalez. He says to leave the patient in the ER and they will evaluate. 03/11/17 06:55 Due to the patient's fever, recurrent leukocytosis, and intractable pain I did consult the surgeon, Dr. Gonzalez. He did come evaluate the patient. He requested the patient receive a enema to clear his sigmoid colon and rectum. Then requested the patient have a Gastrografin enema x-ray obtained. He will come evaluate the patient again after that is performed. (ALOK BARKER) - Vital Signs Vital signs: Temp Pulse Resp BP Pulse Ox 98.5 F 57 L 18 136/72 H 98 03/11/17 10:55 03/11/17 10:55 03/11/17 10:55 03/11/17 10:55 03/11/17 10:55 - Laboratory Laboratory results interpreted by me: 03/11/17 03/11/17 03/11/17 00:30 00:30 00:35 WBC 17.5 H D RBC 4.27 L Hgb 13.2 L Seg Neutrophils % 87.6 H Lymphocytes % 9.3 L Monocytes % 2.3 L Absolute Neutrophils 15.3 H Total Bilirubin 1.7 H AST 15 L ALT 20 L Urine Urobilinogen 2.0 H Ur Leukocyte Esterase TRACE H - EKG Interpretation by Me Additional EKG results interpreted by me: 03/11/17 02:44 EKG is reviewed and interpreted by me. EKG shows sinus bradycardia with rate of [address] segment elevation or depression. No ischemic T-wave inversions. SC interval, QRS duration, QTc intervals are within normal range. No old EKG available for comparison. (AOLK BARKER) Discharge <ALOK BARKER - Last Filed: 03/11/17 06:56> <SEBASTIAN GUTIERREZ - Last Filed: 03/11/17 14:15> - Discharge Clinical Impression: Abdominal pain Qualifiers: Abdominal location: unspecified location Qualified Code(s): R10.9 - Unspecified abdominal pain Condition: Stable Disposition: HOME, SELF-CARE Instructions: Abdominal Pain ([facility]) Additional Instructions: Abdominal Pain There are many causes of abdominal pain. Pain can mean a serious problem requiring surgery (such as appendicitis). It can also be an innocent problem that goes away on its own (such as a viral infection). Often, time must pass to determine the cause of pain. The physician does not feel that hospitalization is necessary, at present. Things may change within the next 24 hours. Call the doctor or come back for re- examination if any problems occur, such as: (1) Pain that becomes more severe, steady, or becomes concentrated in one specific area. Also, pain that is more severe with movement or coughing. (2) Vomiting that persists or becomes more frequent. (3) Blood in the vomitus, urine, or bowel movements. Blood in the stool may have a tarry or black appearance. (4) Shaking chills or fever greater than 100 degrees F. (5) The abdomen becomes more distended or swollen. (6) Bowel movements cease. (7) Failure to improve as expected. Referrals: [facility] [Provider Group] - Follow up in 3-5 days [facility] [Provider Group] - Follow up in 3-5 days Scribe Attestation: 03/11/17 11:14 I personally performed the services described in the documentation reviewed the documentation recorded by my scribe in my presence and it accurately and completely records my words and actions (SEBASTIAN GUTIERREZ)
[2017-03-11 01:12] LABS: APPEARANCE,URINE SLIGHTLY-CLOUDY; BILIRUBIN,URINE NEGATIVE (NEGATIVE); GLUCOSE, URINE NEGATIVE (NEGATIVE); KETONES,URINE NEGATIVE (NEGATIVE); LEUKOCYTE ESTERASE,URINE TRACE (NEGATIVE); NITRITE,URINE NEGATIVE (NEGATIVE); PROTEIN,URINE NEGATIVE (NEGATIVE); URINE SPECIFIC GRAVITY 1.017
[2017-03-11 01:29] LABS: PROTHROMBIN TIME 12.4 SEC (11.4-15.4)
[2017-03-11] MEDS ORDERED: KETOROLAC TROMETHAMINE INJ/PF 30 MG/1 ML SDV IV ONE (03:22)
--- NOTE | 2017-03-11 03:44 | RADIOLOGY REPORT (SQ) ---
EXAM DESCRIPTION: KUB/ABDOMEN (SINGLE VIEW) COMPLETED DATE/TIME: 03/11/2017 3:18 am REASON FOR STUDY: LLQ pain, Hx of stones COMPARISON: CT abdomen and pelvis 03/07/2017. Abdominal series 03/10/2017. NUMBER OF VIEWS: One view. TECHNIQUE: Supine radiographic image of the abdomen acquired. LIMITATIONS: None. FINDINGS: BOWEL GAS PATTERN: Nonobstructive bowel gas pattern. CALCIFICATIONS: Bowel loops are partially obscuring the renal shadows. No urinary tract calculi are identified. SOFT TISSUES: No gross mass or suggestion of organomegaly. HARDWARE: None in the abdomen. BONES: No acute findings. IMPRESSION: Nonobstructive bowel gas pattern. No urinary tract calculi identified by plain radiogra ph. TECHNICAL DOCUMENTATION: JOB ID: [id number] [employer]- All Rights Reserved
--- NOTE | 2017-03-11 04:47 | RADIOLOGY REPORT (SQ) ---
EXAM DESCRIPTION: U/S RETROPERITON (RENAL/AORTA) COMPLETED DATE/TIME: 03/11/2017 4:26 am REASON FOR STUDY: left renal pain COMPARISON: Abdominal ultrasound 03/10/2017. CT abdomen and pelvis 03/07/2017. TECHNIQUE: Grayscale images acquired of the kidneys and bladder and recorded on PACS. Additional andrew ected color Doppler images recorded. LIMITATIONS: None. FINDINGS: RIGHT KIDNEY: Measures 10.8 cm. Normal echogenicity. There is a 1.5 cm cyst. No hydroneph rosis. No calcifications. LEFT KIDNEY: Measures 9.6 cm. Normal echogenicity. There is a 1.8 cm cyst. No hydronephrosis. No ca lcifications. BLADDER: Bilateral ureteral jets were visualized. IMPRESSION: No hydronephrosis. No renal calculi identified by ultrasound. TECHNICAL DOCUMENTATION: JOB ID: [id number] [place]-[id number] 2010 [employer]- All Rights Reserved
[2017-03-11] MEDS ORDERED: MINERAL OIL 30 ML UDCUP PR ONE (06:37)
--- NOTE | 2017-03-11 07:22 | CONSULTATION REPORT E ---
Consultation Report NAME: SKINNY FALLON : 1980 AGE: 36Y DATE: 03/11/2017 TO: PACO REYNOLDS M.D. FROM: Renee WHITLEY, Requesting Physician Patient seen at the request of Dr. Cleveland. CHIEF COMPLAINT: Abdominal pain. SUMMARY OF CONSULTATION: The patient is a 36-year-old white male, just hospitalized at [facility] for 4 days for abdominal pain of unclear etiology. This was initially associate with nausea, vomiting. He had an extensive workup including non-enhanced CT scan of the abdomen, enhanced CT scan of the abdomen with oral and IV contrast, gallbladder ultrasonography, upper endoscopy by Dr. Corado with biopsy showing chronic inactive gastritis, and acute abdominal series. All of these studies failed to explain the patient's symptoms. He did have a 1 mm left lower renal pole stone. The patient was seen in consultation with Dr. Knapp, urologist, who felt that the patient symptoms were not due to these small left kidney stones. The patient was discharged home yesterday afternoon, did okay initially, then after having some chicken soup, developed persistent left lower quadrant pain and a sensation of pain radiating more to his midline. He reports urinary frequency, but no eboni dysuria. He does not understand what pneumaturia is, but upon my explanation feels like he could possibly have passed some air. He has been in the emergency department since 11 o'clock last night, where he has had 10 mg of morphine, 50 mg of Toradol and a liter of fluid. His relevant past urologic history includes 5 episodes of kidney stones felt to be due to calcium kidney stones, treated in [place], [place] from 2008 to 2013, including 5 lithotripsies and 5 stents with 2 hospitalizations including 1 episode of sepsis. He was managed with calcium citrate, which he has been off for a year. His urologist was Dr. Medina. He has not sought medical care for kidney stones since that time. PAST MEDICAL/SURGICAL HISTORY: Includes the above, as well as shingles, for which he was treated with Valtrex and has completed that course. SOCIAL HISTORY: The patient does smoke marijuana. FAMILY HISTORY: Noncontributory. REVIEW OF SYSTEMS: As per HPI. PHYSICAL EXAMINATION: The patient is examined in the emergency department. VITAL SIGNS: Heart rate 58, temperature 98.9, blood pressure 144/85. GENERAL: No acute distress. HEAD/EYES: Without icterus. NECK: No adenopathy. SKIN: Small rash over left eye, attributed to recovering shingles. LUNGS: Diminished in the bases bilaterally. HEART: Without murmur or gallop. ABDOMEN: Flat, not distended. No peritoneal signs. Minimal tenderness in the left lower quadrant with some mild guarding with some suprapubic tenderness. RECTAL: Exam not performed. Remainder of examination is nonfocal. LABORATORY: Profile shows a white blood cell count of 17,500, hemoglobin 13.2. Electrolytes unremarkable except for total bilirubin of 1.7. PT/INR normal Urinalysis is 2 urobilinogen and trace leukocyte esterase positivity. IMPRESSION: PERSISTENT ABDOMINAL AND PELVIC PAIN OF UNCLEAR ETIOLOGY, STATUS POST RECENT HOSPITALIZATION WITH EXTENSIVE ABDOMINAL EVALUATION DESCRIBED ABOVE WITHOUT CLEAR EXPLANATION FOR PATIENT'S SYMPTOMS. Nonetheless, the patient had self report fever of 100.2 and a leukocytosis of 17,000. Concerns include residual, occult renal or collecting system retained stone; conversely diverticulitis with colovesical fistula much less likely, but also in the differential. RECOMMENDATIONS: 1. Spoke to Dr. Cleveland regarding the above. 2. Suggested performing a rectal exam. 3. The patient does have some retained stool throughout his colon, likely due to recent hospitalization, immobility and narcotic effects. I have suggesting giving him enema until clear. Then giving the patient a contrast of barium enema, such as Gastrograph and to rule out a colovesical communication. 4. The patient may benefit from a urologic re-consultation. DICTATING PHYSICIAN: PACO REYNOLDS M.D. [id number] PHY#: [id number] ID: [id number] JOB#: [id number] ACCT: [id number] cc:PACO REYNOLDS M.D. >
--- NOTE | 2017-03-11 10:48 | RADIOLOGY REPORT (SQ) ---
EXAM DESCRIPTION: Gastrografin ENEMA COMPLETED DATE/TIME: 03/11/2017 10:32 am REASON FOR STUDY: LLQ abdominal pain. Please use gastrografin COMPARISON: CT of the abdomen pelvis with oral contrast 03/08/2017. FLUOROSCOPY TIME: 1 minutes 25 seconds 9 images saved to PACS. TECHNIQUE: Following retrograde filling of the colon with water soluble contrast, fluoroscopic spot and overhead imaging of the colon was obtained and saved to PACS. LIMITATIONS: None. 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 CECUM: Normal cecum. Appendix visualized. ASCENDING COLON: No masses, strictures, or perforations. TRANSVERSE COLON: No masses, strictures, or perforations. DESCENDING COLON: No masses, strictures, or perforations. SIGMOID COLON: No masses, strictures, or perforations. RECTUM: No masses, strictures, or perforations. POST EVAC: Near complete evacuation of gastrografin. OTHER: No other significant finding. IMPRESSION: NORMAL SINGLE CONTRAST ENEMA. COMMENT: Quality ID [id number]: Final reports for procedures using fluoroscopy that document radiation exp osure indices, or exposure time and number of fluorographic images (if radiation exposure indices are not available) TECHNICAL DOCUMENTATION: JOB ID: [id number] [place]-62 2010 [employer]- All Rights Reserved
[2017-03-11 11:56] VITALS: BP 131/75
--- NOTE | 2017-03-11 22:06 | EKG REPORT ---
SEVERITY:- BORDERLINE ECG - SINUS RHYTHM PROBABLE LEFT ATRIAL ABNORMALITY : Confirmed by: Hayden Villela 11-Mar-2017 22:06:09
== END 2017-03-11 12:01 | disposition home or self-care (01) ==
LOC: ER 22:58
DX: R10.9 Unspecified abdominal pain (principal); R50.9 Fever, unspecified; R10.32 Left lower quadrant pain
CPT/HCPCS: 93005; 96376; 99285; 96361; 96374; 96375; 36415; 87040; 87086; 82962; 83735; 85025; 85610; 80053; 81001; 82803; 83605; 74270; 74000; 76770; 93010; J1885; J3490; J2270; J7030

== ENCOUNTER 2017-05-05 20:44 | Emergency (ER) | payer MEDICAID ==
[2017-05-05 21:26] VITALS: BP 125/67
[2017-05-05] MEDS ORDERED: SULFAMETHOXAZOLE/TRIMETHOPRIM 800-160 MG TABLET PO ONE (23:21)
[2017-05-05] MEDS ORDERED: IBUPROFEN 600 MG TABLET PO ONE (23:21)
--- NOTE | 2017-05-05 23:24 | ER Document Report ---
ED General - General Chief Complaint: Skin Sore(s) Stated Complaint: RASH Time Seen by Provider: 05/05/17 22:40 Notes: Patient is a 36-year-old male without past medical history who presents with multiple areas of a rash. He states that he has several areas of swelling including over the base of his thumb on the left hand and over his left mid abdomen as well as several areas of pustular lesions on bilateral inner thighs. He states that all the areas of a dull, constant, aching pain worse over the abdominal lesion. There is been a small amount of purulent expression from the lesion on the abdomen. He has no history of similar symptoms in the past. He denies any fever or constitutional symptoms. Notes that these areas did appear over the last 3-4 days and have gotten progressively worse since that time. He has not seen his primary doctor regarding today's concerns. He denies any prior known history of abscesses or MRSA. TRAVEL OUTSIDE OF THE [place] IN LAST 30 DAYS: No - Related Data Allergies/Adverse Reactions: No Known Allergies Allergy (Verified 05/05/17 21:23) Past Medical History - General Information source: Patient - Social History Smoking Status: Never Smoker Frequency of alcohol use: None Drug Abuse: None Lives with: Spouse/Significant other Family History: CAD, DM, Hypertension, Malignancy, Other - Mother and brother have SVT long QT and he states have both had a heart attack and on pacemaker defibrillator Renal/ Medical History: Reports: Hx Kidney Stones. Denies: Hx Peritoneal Dialysis Past Surgical History: Reports: Hx Kidney (Renal Surgery) - lithrotripsy, Other - lithotrypsy - Immunizations Immunizations up to date: Yes Hx Diphtheria, Pertussis, Tetanus Vaccination: No Review of Systems - Review of Systems Notes: Constitutional: Negative for fever. HENT: Negative for sore throat. Eyes: Negative for visual changes. Cardiovascular: Negative for chest pain. Respiratory: Negative for shortness of breath. Gastrointestinal: Negative for abdominal pain, vomiting or diarrhea. Genitourinary: Negative for dysuria. Musculoskeletal: Negative for back pain. Skin: Positive for multiple abscesses Neurological: Negative for headaches, weakness or numbness. 10 point ROS negative except as marked above and in HPI. Physical Exam - Vital signs Vitals: Temp Pulse Resp BP Pulse Ox 99.3 F 67 18 125/67 99 05/05/17 21:25 05/05/17 21:25 05/05/17 21:25 05/05/17 21:25 05/05/17 21:25 Interpretation: Normal Notes: PHYSICAL EXAMINATION: GENERAL: Well-appearing, well-nourished and in no acute distress. HEAD: Atraumatic, normocephalic. EYES: Pupils equal round and reactive to light, extraocular movements intact, sclera anicteric, conjunctiva are normal. ENT: nares patent, oropharynx clear without exudates. Moist mucous membranes. NECK: Normal range of motion, supple without lymphadenopathy LUNGS: Breath sounds clear to auscultation bilaterally and equal. No wheezes rales or rhonchi. HEART: Regular rate and rhythm without murmurs ABDOMEN: Soft, nontender, normoactive bowel sounds. No guarding, no rebound. No masses appreciated. EXTREMITIES: Normal range of motion, no pitting or edema. No cyanosis. NEUROLOGICAL: No focal neurological deficits. Moves all extremities spontaneously and on command. PSYCH: Normal mood, normal affect. SKIN: Warm, Dry, normal turgor, there is a one by one cm abscess over the left upper abdomen. There is a very small abscess at the base of the left dorsal thumb. Approximately 20 pustular lesions scattered across the bilateral inner thighs. Course - Re-evaluation Re-evalutation: 05/05/17 23:21 Patient presents with multiple areas of folliculitis as well as 2 small abscesses one over the left central abdomen and the other over the base of the left thumb on the dorsal aspect. The abscesses on the thumb and abdominal wall were incised and drained at the bedside. Remainder areas of folliculitis do not require incision and drainage. Patient will be started on trimethoprim sulfamethoxazole 2 tabs twice daily for the next 5 days. He has been been encouraged to follow-up with bleach baths thereafter decolonize for MRSA given the diffuse nature of the pustular rash. At this time will discharge with return precautions and follow-up recommendations. Verbal discharge instructions given a the bedside and opportunity for questions given. Medication warnings reviewed. Patient is in agreement with this plan and has verbalized understanding of return precautions and the need for primary care follow-up in the next 24-72 hours. - Vital Signs Vital signs: Temp Pulse Resp BP Pulse Ox 99.3 F 67 18 125/67 99 10/21/17 21:25 05/05/17 21:25 05/05/17 21:25 05/05/17 21:25 05/05/17 21:25 Procedures - Incision and Drainage Left Abdomen Type: Simple Anesthetic type: 1% Lidocaine mL's of anesthetic: 2 Blade size: 11 I&D procedure: Betadine prep applied Incision Method: Incision made by scalpel Amount/type of drainage: 2cc purulent drainage Discharge - Discharge Clinical Impression: Folliculitis, Abscess of multiple sites Condition: Good Disposition: HOME, SELF-CARE Additional Instructions: You were seen for an abscess that required drainage. Please clean this area with soap and water twice daily and apply a topical antibiotic. Dress the area after each cleaning. Please return if you develop fever, vomiting, the pain at the site worsens, you notice spreading redness from the area, or you have any other symptoms that are concerning to you. Prescriptions: Sulfamethoxazole/Trimethoprim [Bactrim Ds Tablet] 2 tab PO BID #20 tablet
== END 2017-05-06 00:38 | disposition home or self-care (01) ==
LOC: ER 20:44
PROC: 0H97XZZ Drainage of Abdomen Skin, External Approach (ICD-10-PCS; principal; 2017-05-05)
DX: L02.211 Cutaneous abscess of abdominal wall (principal); L02.818 Cutaneous abscess of other sites; L73.9 Follicular disorder, unspecified; R21 Rash and other nonspecific skin eruption
CPT/HCPCS: 99283; 10060; J3490 ×2

== ENCOUNTER 2017-05-07 11:27 | Emergency (ER) | payer SELFPAY ==
[2017-05-07 11:58] VITALS: BP 128/68
[2017-05-07] MEDS ORDERED: CEPHALEXIN 500 MG CAPSULE PO ONE (12:40)
--- NOTE | 2017-05-07 12:43 | ER Document Report ---
HPI - HPI Patient complains to provider of: wound recheck Onset: Other - 2 days Onset/Duration: Worse Quality of pain: Achy Pain Level: 3 Context: Patient states he was here 2 days ago and had incision and drainage procedure performed on an abscess to his left wrist and abdomen. Patient states that the area to his left wrist is increasing in tenderness, redness, and swelling. Patient denies any fever. Patient has been compliant with taking his Bactrim as prescribed. Patient states he does have a known history of MRSA. Associated Symptoms: Other - Wound recheck. denies: Fever Exacerbated by: Movement Relieved by: Denies Similar symptoms previously: No Recently seen / treated by doctor: Yes - ROS ROS below otherwise negative: Yes Systems Reviewed and Negative: Yes All other systems reviewed and negative - CONSTITUTIONAL Constitutional: DENIES: Fever, Chills - REPRODUCTIVE Reproductive: DENIES: : - MUSCULOSKELETAL Musculoskeletal: REPORTS: Extremity pain, Swelling - DERM Skin Color: Erythema Notes: Wound status post incision and drainage from an abscess Past Medical History - General Information source: Patient - Social History Smoking Status: Current Every Day Smoker Drug Abuse: None Occupation: [employer] Lives with: Family Family History: CAD, DM, Hypertension, Malignancy, Other - Mother and brother have SVT long QT and he states have both had a heart attack and on pacemaker defibrillator Patient has suicidal ideation: No Patient has homicidal ideation: No Renal/ Medical History: Reports: Hx Kidney Stones. Denies: Hx Peritoneal Dialysis Skin Medical History: Reports Hx MRSA Past Surgical History: Reports: Hx Kidney (Renal Surgery) - lithrotripsy, Other - lithotrypsy - Immunizations Immunizations up to date: Yes Hx Diphtheria, Pertussis, Tetanus Vaccination: No Vertical Provider Document - CONSTITUTIONAL Agree With Documented VS: Yes Exam Limitations: No Limitations General Appearance: WD/WN, No Apparent Distress - INFECTION CONTROL TRAVEL OUTSIDE OF THE [place] IN LAST 30 DAYS: No - HEENT HEENT: Atraumatic, Normocephalic - NECK Neck: Normal Inspection, Supple - RESPIRATORY Respiratory: Breath Sounds Normal, No Respiratory Distress O2 Sat by Pulse Oximetry: 100 - CARDIOVASCULAR Cardiovascular: Regular Rate, Regular Rhythm Pulses: Normal: Radial - MUSCULOSKELETAL/EXTREMETIES Musculoskeletal/Extremeties: MAEW, FROM - NEURO Level of Consciousness: Awake, Alert, Appropriate Motor/Sensory: No Motor Deficit - DERM Integumentary: Warm, Dry, Abscess - Resolving abscess to the left side of abdomen, area mildly erythematous. Patient with crusted lesion to radial aspect of left wrist with surrounding erythema and 1+ edema. No drainable abscess, no fluctuance. Course - Re-evaluation Re-evalutation: 05/07/17 12:41 Will extend patient's course of antibiotics for an additional few days of the Bactrim adding Keflex for coverage of developing cellulitis. - Vital Signs Vital signs: Temp Pulse Resp BP Pulse Ox 98.1 F 61 17 128/68 H 100 05/07/17 11:56 05/07/17 11:56 05/07/17 11:56 05/07/17 11:56 05/07/17 11:56 Discharge - Discharge Clinical Impression: Hx MRSA infection Cellulitis Qualifiers: Site of cellulitis: extremity Site of cellulitis of extremity: upper extremity Laterality: left Qualified Code(s): L03.114 - Cellulitis of left upper limb Condition: Stable Disposition: HOME, SELF-CARE Instructions: Cephalexin ([facility]), MRSA Cellulitis ([facility]), Trimethoprim-Sulfa ([facility]) Additional Instructions: Return immediately for any new or worsening symptoms Followup with your primary care provider, call tomorrow to make a followup appointment Prescriptions: Cephalexin Monohydrate [Keflex 500 mg Capsule] 500 mg PO Q6H 7 Days capsule Naproxen [Naprosyn 250 Nmg Tablet] 1 tab PO BID #14 tablet Sulfamethoxazole/Trimethoprim [Bactrim Ds Tablet] 1 each PO BID #10 tablet Forms: Return to Work Referrals: [facility] [Provider Group] - Follow up tomorrow
== END 2017-05-07 12:52 | disposition home or self-care (01) ==
LOC: ER 11:27
DX: L03.114 Cellulitis of left upper limb (principal); F17.200 Nicotine dependence, unspecified, uncomplicated; Z86.14 Personal history of Methicillin resistant Staphylococcus aureus infection
CPT/HCPCS: 99282

== ENCOUNTER 2017-05-08 10:42 | Emergency (ER) | payer MEDICAID ==
--- NOTE | 2017-05-08 11:04 | ER Document Report ---
ED Medical Screen (RME) - General Chief Complaint: Abscess Stated Complaint: ABSCESS Time Seen by Provider: 05/08/17 11:03 Notes: Pt has multiple abscesses. had I and D performed here three days ago and is taking abx. However, abscess is worse and new one has appeared. TRAVEL OUTSIDE OF THE [place] IN LAST 30 DAYS: No - Related Data Allergies/Adverse Reactions: No Known Allergies Allergy (Verified 05/05/17 21:23) Past Medical History Renal/ Medical History: Reports: Hx Kidney Stones. Denies: Hx Peritoneal Dialysis Skin Medical History: Reports Hx MRSA Past Surgical History: Reports: Hx Kidney (Renal Surgery) - lithrotripsy, Other - lithotrypsy - Immunizations Immunizations up to date: Yes Hx Diphtheria, Pertussis, Tetanus Vaccination: No Physical Exam - Vital signs Vitals: Temp Pulse Resp BP Pulse Ox 98.2 F 63 16 133/88 H 100 05/08/17 10:56 05/08/17 10:56 05/08/17 10:56 05/08/17 10:56 05/08/17 10:56 Course - Vital Signs Vital signs: Temp Pulse Resp BP Pulse Ox 98.2 F 63 16 133/88 H 100 05/08/17 10:56 05/08/17 10:56 05/08/17 10:56 05/08/17 10:56 05/08/17 10:56
[2017-05-08] MEDS ORDERED: CLINDAMYCIN 600 MG/D5W RTU 600 MG/50 ML RTUPB IV ONE ×2 (11:21→11:24)
--- NOTE | 2017-05-08 11:27 | ER Document Report ---
ED General - General Chief Complaint: Abscess Stated Complaint: ABSCESS Time Seen by Provider: 05/08/17 11:03 Mode of Arrival: Ambulatory Information source: Patient, [facility] Records TRAVEL OUTSIDE OF THE [place] IN LAST 30 DAYS: No - HPI Patient complains to provider of: abscess recheck Onset: Last week Onset/Duration: Persistent Recently seen / treated by doctor: Yes Notes: Patient is a 36-year-old male who was seen here twice in the last several days for an abscess to his left wrist and abdominal wall. He presents now today because a third abscess is shown up along his right fifth digit. Patient is currently on Bactrim for 4 days and Keflex for 1 day. He has had no fevers. He sts he is concerned because they are not gone yet. No known injury. No prior hx of similar sx. - Related Data Allergies/Adverse Reactions: No Known Allergies Allergy (Verified 05/05/17 21:23) Past Medical History - Social History Smoking Status: Unknown if Ever Smoked Family History: CAD, DM, Hypertension, Malignancy, Other - Mother and brother have SVT long QT and he states have both had a heart attack and on pacemaker defibrillator Renal/ Medical History: Reports: Hx Kidney Stones. Denies: Hx Peritoneal Dialysis Skin Medical History: Reports Hx MRSA Past Surgical History: Reports: Hx Kidney (Renal Surgery) - lithrotripsy, Other - lithotrypsy - Immunizations Immunizations up to date: Yes Hx Diphtheria, Pertussis, Tetanus Vaccination: No Review of Systems - Review of Systems Skin: Lesions - abscess -: Yes All other systems reviewed and negative Physical Exam - Vital signs Vitals: Temp Pulse Resp BP Pulse Ox 98.2 F 63 16 133/88 H 100 05/08/17 10:56 05/08/17 10:56 05/08/17 10:56 05/08/17 10:56 05/08/17 10:56 - General General appearance: Appears well, Alert - Respiratory Respiratory status: No respiratory distress Chest status: Nontender Breath sounds: Normal Chest palpation: Normal - Cardiovascular Rhythm: Regular Heart sounds: Normal auscultation Murmur: No - Skin Skin Temperature: Warm Skin Moisture: Dry Notes: small abscess with surrounding erythema to left wrist and abd wall - both already open and draining. A small non-open abscess noted along right 5th digit - nothing to I&D. No lymphangitis. Course - Vital Signs Vital signs: Temp Pulse Resp BP Pulse Ox 98.2 F 63 16 133/88 H 100 05/08/17 10:56 05/08/17 10:56 05/08/17 10:56 05/08/17 10:56 05/08/17 10:56 Discharge - Discharge Clinical Impression: Abscess Condition: Good Disposition: HOME, SELF-CARE Instructions: MRSA Cellulitis ([facility]) Additional Instructions: You have been switched from Bactrim to Clindamycin. Continue on the Keflex. Follow up with your primary care doctor. Return if worse. Prescriptions: Clindamycin HCl 300 mg PO QID #40 capsule
[2017-05-08 13:28] VITALS: BP 116/74
== END 2017-05-08 13:28 | disposition home or self-care (01) ==
LOC: ER 10:42
DX: L02.511 Cutaneous abscess of right hand (principal); Z98.890 Other specified postprocedural states; L02.414 Cutaneous abscess of left upper limb; L02.211 Cutaneous abscess of abdominal wall; Z86.14 Personal history of Methicillin resistant Staphylococcus aureus infection
CPT/HCPCS: 99282; 96365; S0077

== ENCOUNTER 2018-02-11 10:35 | Emergency (ER) | payer MEDICAID ==
[2018-02-11] MEDS ORDERED: NORMAL SALINE 1000 ML 1,000 ML IV PRN (10:58)
[2018-02-11] MEDS ORDERED: NORMAL SALINE 1000 ML 1,000 ML IV ONE (10:58)
[2018-02-11] MEDS ORDERED: DIPHENHYDRAMINE HCL 50 MG/ML VIAL IV ONE (10:59)
[2018-02-11] MEDS ORDERED: CEFTRIAXONE INJ 1000 MG VIAL IV ONE (10:59)
[2018-02-11] MEDS ORDERED: ONDANSETRON 4 MG TAB.RAPDIS PO ONE (11:01)
[2018-02-11] MEDS ORDERED: IBUPROFEN 600 MG TABLET PO ONE (11:01)
[2018-02-11] MEDS ORDERED: FENTANYL CITRATE INJ/PF 100 MCG/2 ML AMPUL IV ONE (11:01)
--- NOTE | 2018-02-11 11:02 | ER Document Report ---
ED Medical Screen (RME) - General Chief Complaint: Arm Pain Stated Complaint: ARM PAIN Time Seen by Provider: 02/11/18 10:57 Notes: 37 years old male with no significant past medical history presents today with 2 -3 day history of generalized rash after being bitten by insects and takes. And also have left antecubital regionthis large swelling which is erythematous warm and extremely tender to touch. Limited range of motion for flexion and extension. Diffuse scattered erythematous rash. TRAVEL OUTSIDE OF THE [place] IN LAST 30 DAYS: No - Related Data Allergies/Adverse Reactions: No Known Allergies Allergy (Verified 02/11/18 10:36) Past Medical History - Social History Frequency of alcohol use: None Drug Abuse: Marijuana Renal/ Medical History: Reports: Hx Kidney Stones. Denies: Hx Peritoneal Dialysis Skin Medical History: Reports Hx MRSA Past Surgical History: Reports: Hx Kidney (Renal Surgery) - lithrotripsy, Other - lithotrypsy - Immunizations Immunizations up to date: Yes Hx Diphtheria, Pertussis, Tetanus Vaccination: No Physical Exam - Vital signs Vitals: Temp Pulse Resp BP Pulse Ox 98.1 F 75 12 102/71 98 02/11/18 10:40 02/11/18 10:40 02/11/18 10:40 02/11/18 10:40 02/11/18 10:40 Course - Vital Signs Vital signs: Temp Pulse Resp BP Pulse Ox 98.1 F 75 12 102/71 98 02/11/18 10:40 02/11/18 10:40 02/11/18 10:40 02/11/18 10:40 02/11/18 10:40
--- NOTE | 2018-02-11 11:32 | ER Document Report ---
ED Extremity Problem, Upper - General Chief Complaint: Arm Pain Stated Complaint: ARM PAIN Time Seen by Provider: 02/11/18 10:57 TRAVEL OUTSIDE OF THE [place] IN LAST 30 DAYS: No - HPI Notes: 37-year-old male presents to the ER complaining of left arm swelling. He states he was bitten by some bugs about 3 or 4 days ago. His arm is been swelling he denies any IV drug abuse. She denies chest pain or shortness of breath stated he has been throwing up and had some nausea and vomiting. States he has had subjective fever chills but he has not measured. States he has a history of MRSA his girlfriend just finished a course of antibiotics for MRSA he had an MRSA abscess in the same area vision denies chest pain or shortness of breath denies abdominal pain. Denies diarrhea. - Related Data Allergies/Adverse Reactions: No Known Allergies Allergy (Verified 02/11/18 10:36) Past Medical History - Social History Smoking Status: Current Every Day Smoker Frequency of alcohol use: None Drug Abuse: Marijuana Family History: CAD, DM, Hypertension, Malignancy, Other - Mother and brother have SVT long QT and he states have both had a heart attack and on pacemaker defibrillator Patient has suicidal ideation: No Patient has homicidal ideation: No Renal/ Medical History: Reports: Hx Kidney Stones. Denies: Hx Peritoneal Dialysis Skin Medical History: Reports Hx MRSA Past Surgical History: Reports: Hx Kidney (Renal Surgery) - lithrotripsy, Other - lithotrypsy - Immunizations Immunizations up to date: Yes Hx Diphtheria, Pertussis, Tetanus Vaccination: No Review of Systems - Review of Systems Constitutional: Chills, Fever EENT: denies: Double vision Cardiovascular: denies: Chest pain Respiratory: denies: Cough, Hemoptysis, Short of breath Gastrointestinal: Nausea, Vomiting. denies: Abdominal pain, Diarrhea, Constipation -: Yes All other systems reviewed and negative Physical Exam - Vital signs Vitals: Temp Pulse Resp BP Pulse Ox 98.1 F 75 12 102/71 98 02/11/18 10:40 02/11/18 10:40 02/11/18 10:40 02/11/18 10:40 02/11/18 10:40 - Notes Notes: GENERAL_APPEARANCE: well_nourished, alert, cooperative VITALS: reviewed, see vital signs table. HEAD: no_swelling\tenderness on the head. EYES: PERRL, EOMI, conjunctiva_clear. NOSE: no_nasal_discharge. MOUTH: (-)decreased moisture. THROAT: no_tonsilar_inflammation, no_airway_obstruction. no_lymphadenopathy NECK: supple, no_neck_tenderness, (-)thyromegaly. BACK: no_back_tenderness. CHEST_WALL: no_chest_tenderness. EXTREMITIES: Left antecubital fossa is red warm to touch with some mild fluctuance. There is distal pulses radial and ulnar left brisk capillary refill of the left arm. SKIN: warm, dry, good_color, no_rash. MENTAL_STATUS: speech_clear, oriented_X_3, normal_affect, responds_ appropriately to questions. Course - Re-evaluation Re-evalutation: 02/11/18 11:32 37-year-old male presents with a abscess to the left antecubital fossa he has a history of MRSA and this is likely the same. He does have a history of fever nausea vomiting triage physician placed orders for antibiotics lactic acid. We will ultrasound the area and if a reasonable fluid collection will incise and drain. 02/11/18 13:30 Abscess was incised and drained. Patient a mild leukocytosis but no fever. No lactic acid elevation I do not believe he is septic. Patient received IV antibiotics here I will place him on Bactrim and Augmentin for home. If he does develop a fever or gets worse or his vomiting cannot keep down his antibiotics he is to return to the ER come back for packing removal in 2 days. - Vital Signs Vital signs: Temp Pulse Resp BP Pulse Ox 98.1 F 75 12 102/71 98 02/11/18 10:40 02/11/18 10:40 02/11/18 10:40 02/11/18 10:40 02/11/18 10:40 - Laboratory Result Diagrams: 02/11/18 11:18 02/11/18 11:18 Laboratory results interpreted by me: 02/11/18 02/11/18 11:18 11:18 WBC 16.0 H Absolute Neutrophils 10.7 H Absolute Monocytes 1.7 H Chloride 97 L Glucose 112 H Procedures - Incision and Drainage Left Arm Time completed: 13:28 Type: Simple Anesthetic type: 1% Lidocaine w/epi mL's of anesthetic: 3 Blade size: 11 I&D procedure: Chlorprep applied Incision Method: Incision made by scalpel Notes: 02/11/18 13:28 5 mL's of pus was able to be expressed loculations were broken up and packing was placed iodoform quarter-inch. Discharge - Discharge Clinical Impression: Abscess Condition: Good Disposition: HOME, SELF-CARE Instructions: Abscess ([facility]) Additional Instructions: Please remove the packing in 2 days. He can return to the ER to be rechecked if you like. If you develop a fever of 101 or above or if you or vomiting he cannot keep down her medicines return to the ER immediately Prescriptions: Amox Tr/Potassium Clavulanate [Augmentin 875-125 Tablet] 1 tab PO BID 10 Days tablet Hydrocodone/Acetaminophen [[place] 5-325 mg Tablet] 1 tab PO Q6H PRN #12 tablet PRN Reason: pain Sulfamethoxazole/Trimethoprim [Bactrim Ds Tablet] 1 each PO Q12H #20 tablet
[2018-02-11 11:50] LABS: ABSOLUTE BASOPHILS # (AUTO) 0.1 10^3/uL (0.0-0.2); ABSOLUTE LYMPHOCYTES (AUTO) 3.5 10^3/uL (0.5-4.7); ABSOLUTE MONOCYTES (AUTO) 1.7 10^3/uL (0.1-1.4); ABSOLUTE NEUT (AUTO) 10.7 10^3/uL (1.7-8.2); BASOPHILS % (AUTO) 0.4 % (0-2); EOSINOPHILS % (AUTO) 0.2 % (0-6); HEMATOCRIT 39.6 % (37.9-51.0); HEMOGLOBIN 13.6 g/dL (13.5-17.0); LYMPHOCYTES % (AUTO) 21.9 % (13-45); MEAN CORPUSCULAR HEMOGLOBIN 31.1 pg (27.0-33.4); MEAN CORPUSCULAR HGB CONC 34.3 g/dL (32.0-36.0); MEAN CORPUSCULAR VOLUME 91 fl (80-97); MONOCYTES % (AUTO) 10.8 % (3-13); PLATELET COUNT 227 10^3/uL (150-450); RED BLOOD COUNT 4.37 10^6/uL (4.35-5.55); RED CELL DISTRIBUTION WIDTH 12.9 % (11.5-14.0); SEGMENTED NEUTROPHILS % (AUTO) 66.7 % (42-78); TOTAL CELLS COUNTED % (AUTO) 100 %
[2018-02-11] MEDS ORDERED: LIDOCAINE 1% INJ-PF (10 MG/ML) 30 ML SDV INJ ONE (12:01)
[2018-02-11 12:08] LABS: ALANINE AMINOTRANSFERASE 38 U/L (21-72); ALBUMIN 4.2 g/dL (3.5-5.0); ALKALINE PHOSPHATASE 76 U/L (38-126); ANION GAP 15 (5-19); ASPARTATE AMINO TRANSFERASE 40 U/L (17-59); BILIRUBIN,DIRECT 0.3 mg/dL (0.0-0.4); BILIRUBIN,TOTAL 0.6 mg/dL (0.2-1.3); BLOOD UREA NITROGEN 11 mg/dL (7-20); CALCIUM 9.2 mg/dL (8.4-10.2); CARBON DIOXIDE 30 mmol/L (22-30); CHLORIDE 97 mmol/L (98-107); GLUCOSE 112 mg/dL (75-110); POTASSIUM 3.8 mmol/L (3.6-5.0); SODIUM 141.6 mmol/L (137-145); TOTAL PROTEIN 8.1 g/dL (6.3-8.2)
[2018-02-11] MEDS ORDERED: HYDROMORPHONE HCL INJ/PF 2 MG/ML AMPULE IV ONE (12:41)
--- NOTE | 2018-02-11 13:45 | ER Document Report ---
ED NIH Stroke Scale - NIH Stroke Scale When completed:: Before Alteplase *: 1. NIH scale should be completed with appropriate accompanying assessment tools. *: 2. The NIH should reflect what the patient is capable of doing and should not be coached by the clinician. 1a. Level of Consciousness: 0=Alert;keenly responsive -: 1=Drowsy -: 2=Obtunded -: 3=Coma/unresponsive or reflex to noxious stimuli. 1a. Responses: 1 1b. Orientation Questions: a. What month is it? -: b. How old are you? -: 0=Answers both questions correctly. -: 1=Answers one question correctly or patient is intubated or has orotracheal trauma. -: 2=Answers neither question correctly. 1b. Responses: 2 1c. Response to commands: a. Open and close eyes? -: b. Paid Search Analyst and release hand? -: Credit is given despite weakness. Demonstration of task is permitted. Substitute command if hands cannot be used. -: 0=Performs both tasks correctly -: 1=Performs one task correctly -: 2=Performs neither task correctly 1c. Responses: 2 2. Gaze: Establish eye contact and instruct patient to "Follow my finger" -: 0=Normal -: 1=Partial gaze palsy. Gaze is abnormal in one or both eyes, but where forced deviation or total gaze paresis is not present. -: 2=Forced deviation or total gaze paresis. 2. Responses: 2 3. Visual Watkins: Sees fingers in all four quadrants. -: 0=No visual loss. -: 1=Partial hemianopsia. -: 2=Complete hemianopsia. -: 3=Bilateral hemianopsia (including Cortical blindness) 3. Responses: 0 4. Facial Movement: Instruct patient to: -: a. Show me your teeth -: b. Raise your eyebrows -: c. Close your eyes -: d. Smile -: 0=Normal symmetrical movement -: 1=Minor paralysis (flattened nasolabial fold, asymmetry on smiling). -: 2=Partial paralysis (total or near total paralysis of lower face). -: 3=Complete paralysis of upper and lower face 4. Responses: 2 5. Motor functions (left arm): Alternate sides and extend each arm with palms down (90 degrees if sitting or 45 degrees for supine). -: 0=No drift;limb holds for full 10 seconds. -: 1=Drift; limb holds but drifts down before full 10 seconds, but does not hit bed. -: 2=Some effort against gravity; limb cannot get to or maintain position. -: 3=No effort against gravity; limb falls. -: 4=No movement. -: UN=Amputation, joint fusion, explain in comments. 5. Responses (left arm): 0 5. Motor Functions (right arm): Alternate sides and extend each arm with palms down (90 degrees if sitting or 45 degrees for supine). -: 0=No drift;limb holds for full 10 seconds. -: 1=Drift; limb holds but drifts down before full 10 seconds, but does not hit bed. -: 2=Some effort against gravity; limb cannot get to or maintain position. -: 3=No effort against gravity; limb falls. -: 4=No movement. -: UN=Amputation, joint fusion, explain in comments. 5. Responses (right arm): 2 6. Motor Functions (left leg): With patient lying supine, alternate sides and extend each leg (30 degrees always while supine). -: 0=No drift, leg holds position for full 5 seconds -: 1=Drift; leg falls before full 5 seconds but does not hit bed. -: 2=Some effort against gravity, leg falls to bed but some effort against gravity. -: 3=No effort against gravity, leg falls to bed immediately. -: 4=No movement. -: UN=Amputation, joint fusion; explain in comments. 6. Responses (left leg): 0 6. Motor Functions (right leg): With patient lying supine, alternate sides and extend each leg (30 degrees always while supine). -: 0=No drift, leg holds position for full 5 seconds -: 1=Drift; leg falls before full 5 seconds but does not hit bed. -: 2=Some effort against gravity, leg falls to bed but some effort against gravity. -: 3=No effort against gravity, leg falls to bed immediately. -: 4=No movement. -: UN=Amputation, joint fusion; explain in comments. 6. Responses (right leg): 2 7. Limb Ataxia: With eyes open instruct patient to: -: a. "Touch your finger to your nose". -: b. "Touch your heel to your brock" -: 0=Absent -: 1=Present in one limb. -: 2=Present in two limbs. -: UN=Amputation or joint fusion; explain in comments. 7. Responses: 0 8. Sensory: Test sensation using pinprick or noxious stimuli. Test as many body parts as possible. -: 0=Normal;no sensory loss -: 1=Mile to moderate sensory loss (patient feels pin prick but is less sharp on affected side). -: 2=Severe or total sensory loss. 8. Responses: 0 9. Best Language: Instruct patient to: -: a. "Describe what you see in this picture." -: b. "Name the items in this picture." -: c. "Read these sentences." -: 0=No aphasia, normal -: 1=Mild to moderate aphasia. -: 2=Severe aphasia -: 3=Mute, global aphasia, no usable speech or auditory comprehension. 9. Responses: 3 10. Articulation, Dysarthia: Instruct patient to: -: "Read these words" or "Repeat these words" -: 0=Normal -: 1=Mild to moderate; patient may slur some words but can be understood without difficulty. -: 2=Severe; patients speech so slurred as to be unintelligible in the absence of dysphasia. -: UN=Intubated or other physical barrier, explain in comments. 10. Responses: 2 11. Extinction or inattention: 0=No abnormality -: 1= Visual, tactile, auditory, spatial, or personal inattention or extinction to bilateral simulation in one or the sensory modalities. -: 2=Profound erik-inattention or erik-inattention to more than one modality; does not recognize own hand. 11. Responses: 0 Total Score: 18
[2018-02-11 15:10] VITALS: BP 107/51
[2018-02-13 08:19] LABS: LYME DISEASE IGM AB <0.80 index (0.00-0.79)
== END 2018-02-11 15:09 | disposition home or self-care (01) ==
LOC: ER 10:35
DX: L02.414 Cutaneous abscess of left upper limb (principal); R11.2 Nausea with vomiting, unspecified; F17.200 Nicotine dependence, unspecified, uncomplicated; D72.829 Elevated white blood cell count, unspecified; R68.83 Chills (without fever); Z86.14 Personal history of Methicillin resistant Staphylococcus aureus infection
CPT/HCPCS: 99283; 96361; 96375; 96365; 36415; 87040; 83605; 85025; 80053; 86618 ×2; 86617 ×2; 10060; A6266; J1200; S0119; J3010; J3490 ×2; J1170; J0696; J7030

== ENCOUNTER 2018-03-07 16:12 | Emergency (ER) | payer MEDICAID ==
[2018-03-07 16:18] VITALS: BP 152/77
[2018-03-07] MEDS ORDERED: OXYCODONE-ACETAMINOPHEN 5-325 MG TABLET PO ONE (17:08)
--- NOTE | 2018-03-07 17:43 | RADIOLOGY REPORT (SQ) ---
EXAM DESCRIPTION: RIBS LEFT W/PA CHEST COMPLETED DATE/TIME: 03/07/2018 5:27 pm REASON FOR STUDY: mortensen fell on back COMPARISON: None. TECHNIQUE: Frontal view of the chest and additional views of the left ribs acquired. NUMBER OF VIEWS: Three views LIMITATIONS: None. FINDINGS: FRONTAL CXR: No pneumothorax. No pleural effusion. No atelectasis or infiltrates. RIBS: No displaced rib fractures. No lytic or blastic bony lesions. OTHER: No other significant finding. IMPRESSION: NO PNEUMOTHORAX. NO DISPLACED RIB FRACTURES. COMMENT: SITE OF TRAUMA/COMPLAINT MARKED/STAMP COMPLETED: No TECHNICAL DOCUMENTATION: JOB ID: [id number] [employer]- All Rights Reserved Reading location - IP/workstation name: [email or web address]
[2018-03-07] MEDS ORDERED: LIDOCAINE 5% (700 MG) TRANSDERMAL ADH..PATCH TP ONE (17:50)
--- NOTE | 2018-03-07 17:53 | ER Document Report ---
HPI - HPI Patient complains to provider of: Upper back pain Onset: Yesterday Onset/Duration: Sudden Quality of pain: Achy Pain Level: 4 Context: She states he was working on a vehicle yesterday and the mortensen fell on his left upper back area. She complains of continued pain to the left upper back. Patient denies any difficulty breathing chest pain vomiting or head injury. Associated Symptoms: Other - Left upper back pain. denies: Chest pain, Nonproductive cough, Fever, Nausea, Vomiting Exacerbated by: Movement, Deep breathing Relieved by: Denies Similar symptoms previously: No Recently seen / treated by doctor: Yes - ROS ROS below otherwise negative: Yes Systems Reviewed and Negative: Yes All other systems reviewed and negative - CONSTITUTIONAL Constitutional: DENIES: Fever - NEURO Neurology: DENIES: Headache, Weakness - CARDIOVASCULAR Cardiovascular: DENIES: Chest pain - RESPIRATORY Respiratory: DENIES: Trouble Breathing, Coughing - GASTROINTESTINAL Gastrointestinal: DENIES: Nausea, Patient vomiting - MUSCULOSKELETAL Musculoskeletal: REPORTS: Back Pain - Left upper back - DERM Skin Color: Normal Skin Problems: None Past Medical History - General Information source: Patient - Social History Smoking Status: Current Every Day Smoker Smoking Education Provided: Yes Frequency of alcohol use: None Drug Abuse: Marijuana 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 Denies: Hx Peritoneal Dialysis Skin Medical History: Reports Hx MRSA Past Surgical History: Reports: Hx Kidney (Renal Surgery) - lithrotripsy, Other - lithotrypsy - Immunizations Immunizations up to date: Yes Hx Diphtheria, Pertussis, Tetanus Vaccination: No Vertical Provider Document - CONSTITUTIONAL Agree With Documented VS: Yes Exam Limitations: No Limitations General Appearance: WD/WN, No Apparent Distress - INFECTION CONTROL TRAVEL OUTSIDE OF THE [place] IN LAST 30 DAYS: No - HEENT HEENT: Atraumatic, Normal ENT Exam, Normocephalic - NECK Neck: Normal Inspection, Supple - RESPIRATORY Respiratory: Breath Sounds Normal, No Respiratory Distress, Chest Non-Tender - CARDIOVASCULAR Cardiovascular: Regular Rate, Regular Rhythm, No Murmur - BACK Back: Abnormal Inspection - Left upper thoracic back tenderness, no crepitus, no subcutaneous emphysema, no swelling, no crepitus, no ecchymosis - MUSCULOSKELETAL/EXTREMETIES Musculoskeletal/Extremeties: MAEW - NEURO Level of Consciousness: Awake, Alert, Appropriate Motor/Sensory: No Motor Deficit - DERM Integumentary: Warm, Dry, No Rash Course - Re-evaluation Re-evalutation: 03/07/18 17:49 No findings worrisome for any rib fracture pneumothorax or pneumonia at this time. Will treat symptomatically. - Vital Signs Vital signs: Temp Pulse Resp BP Pulse Ox 98.8 F 84 20 152/77 H 100 03/07/18 16:17 03/07/18 16:17 03/07/18 16:17 03/07/18 16:17 03/07/18 16:17 - Diagnostic Test Radiology reviewed: Reports reviewed Discharge - Discharge Clinical Impression: Upper back strain Qualifiers: Encounter type: initial encounter Qualified Code(s): S29.012A - Strain of muscle and tendon of back wall of thorax, initial encounter Condition: Stable Disposition: HOME, SELF-CARE Instructions: Muscle Relaxers ([facility]), Upper Back Strain ([facility]) Additional Instructions: Return immediately for any new or worsening symptoms Followup with your primary care provider, call tomorrow to make a followup appointment Prescriptions: Cyclobenzaprine HCl [Flexeril 10 Mg Tablet] 10 mg PO TID #15 tablet Naproxen [Naprosyn 250 Nmg Tablet] 1 tab PO BID #14 tablet Forms: Smoking Cessation Education, Return to Work Referrals: RADHA WELCH PA [Primary Care Provider] - Follow up tomorrow
== END 2018-03-07 18:05 | disposition home or self-care (01) ==
LOC: ER 16:12
DX: S29.012A Strain of muscle and tendon of back wall of thorax, initial encounter (principal); W20.8XXA Other cause of strike by thrown, projected or falling object, initial encounter; Y93.89 Activity, other specified; F17.200 Nicotine dependence, unspecified, uncomplicated
CPT/HCPCS: 99283; 71101; J3490

== ENCOUNTER 2018-03-10 14:03 | Emergency (ER) | payer MEDICAID ==
[2018-03-10] MEDS ORDERED: ONDANSETRON HCL INJ/PF 4 MG/2 ML SDV IV ONE (15:50)
[2018-03-10] MEDS ORDERED: NORMAL SALINE 1000 ML 1,000 ML IV ONE (15:50)
[2018-03-10] MEDS ORDERED: KETOROLAC TROMETHAMINE INJ/PF 30 MG/1 ML SDV IV ONE (15:50)
--- NOTE | 2018-03-10 15:51 | ER Document Report ---
ED Medical Screen (RME) - General Chief Complaint: Nausea/Vomiting Stated Complaint: VOMITING Time Seen by Provider: 03/10/18 15:44 TRAVEL OUTSIDE OF THE [place] IN LAST 30 DAYS: No - HPI Patient complains to provider of: Flank pain nausea vomiting Onset: Other - Several days prior to arrival now progressed to the left kidney - Related Data Allergies/Adverse Reactions: No Known Allergies Allergy (Verified 03/07/18 16:14) Past Medical History - Social History Chew tobacco use (# tins/day): No Frequency of alcohol use: None Drug Abuse: Marijuana Renal/ Medical History: Reports: Hx Kidney Stones. Denies: Hx Peritoneal Dialysis Skin Medical History: Reports Hx MRSA Past Surgical History: Reports: Hx Kidney (Renal Surgery) - lithotripsy x7, Other - lithotrypsy - Immunizations Immunizations up to date: Yes Hx Diphtheria, Pertussis, Tetanus Vaccination: No Physical Exam - Vital signs Vitals: Temp Pulse Resp BP Pulse Ox 98.7 F 85 16 149/82 H 99 03/10/18 14:18 03/10/18 14:18 03/10/18 14:18 03/10/18 14:18 03/10/18 14:18 Course - Re-evaluation Re-evalutation: 03/10/18 21:26 37-year-old male with history of nephrolithiasis concerning history for possible nephrolithiasis again, will obtain imaging, will administer analgesia and fluids. Patient to be evaluated through the main emergency department following initial evaluation. - Vital Signs Vital signs: Temp Pulse Resp BP Pulse Ox 99.5 F 72 18 166/80 H 99 03/10/18 18:59 03/10/18 18:59 03/10/18 18:59 03/10/18 18:59 03/10/18 18:59 - Laboratory Result Diagrams: 03/10/18 16:24 03/10/18 16:24 Laboratory results interpreted by me: 03/10/18 03/10/18 03/10/18 15:50 16:24 16:24 WBC 12.8 H RDW 14.2 H Calcium 10.3 H Urine Blood SMALL H Ur Leukocyte Esterase TRACE H Doctor's Discharge - Discharge Clinical Impression: Left flank pain Condition: Stable Disposition: HOME, SELF-CARE Instructions: Abdominal Pain ([facility]), Antinausea Medication ([facility]) Additional Instructions: Maintain adequate fluid and food intake [place] diet ([employer] Bananas, rice, apples, toast, etc Zofran as needed tylenol if needed Monitor for any worsening symptoms Make sure you are staying hydrated enough to urinate and have normal BM's Recheck with your PCM in 2-3 days Consider consult with Urology/nephrology for ongoing/worsening symptoms Return to the ED with any worsening symptoms and/or development of fever, headache, chest pain, palpitations, syncope, shortness of breath, trouble breathing, abdominal pain, n/v/d, blood in stool/urine, weakness, or other worsening symptoms that are concerning to you. Prescriptions: Morphine Sulfate [Morphine Ir 15 Mg Tablet] 15 mg PO TID #10 tablet Ondansetron [Zofran Odt 4 mg Tablet] 1 - 2 tab PO Q4H PRN #15 tab.rapdis PRN Reason: For Nausea/Vomiting Tamsulosin HCl [Flomax] 0.4 mg PO DAILY #10 cap.er.24h Forms: Elevated Blood Pressure, Smoking Cessation Education Referrals: [facility] [Provider Group] - Follow up as needed RADHA WELCH PA [NO LOCAL MD] - 03/12/18
--- NOTE | 2018-03-10 16:53 | RADIOLOGY REPORT (SQ) ---
EXAM DESCRIPTION: CT ABD/PELVIS NO ORAL OR IV COMPLETED DATE/TIME: 03/10/2018 4:34 pm REASON FOR STUDY: renal stone protocol/FLANK PAIN COMPARISON: February 2017 TECHNIQUE: CT scan of the abdomen and pelvis performed without intravenous or oral contrast. Images reviewed with lung, soft tissue, and bone windows. Reconstructed coronal and sagittal MPR images revi ewed. All images stored on PACS. All CT scanners at this facility use dose modulation, iterative reconstruction, and/or weight based d osing when appropriate to reduce radiation dose to as low as reasonably achievable (ALARA). [facility]: Dose Right [facility]: CareDose [facility]: Dose Right [facility]: Teradose 4D [facility]: Ethical Deal RADIATION DOSE: CT Rad equipment meets quality standard of care and radiation dose reduction techniq ues were employed. CTDIvol: 4.8 mGy. DLP: 254 mGy-cm.mGy. LIMITATIONS: None. FINDINGS: LOWER CHEST: No significant findings. No nodules or infiltrates. NON-CONTRASTED LIVER, SPLEEN, ADRENALS: Evaluation limited by lack of IV contrast. No identified sign ificant masses. PANCREAS: No masses. No peripancreatic inflammatory changes. GALLBLADDER: No identified stones by CT criteria. No inflammatory changes to suggest cholecystitis. RIGHT KIDNEY AND URETER: No suspicious masses. Assessment limited by lack of IV contrast. No signif icant calcifications. No hydronephrosis or hydroureter. LEFT KIDNEY AND URETER: No suspicious masses. Assessment limited by lack of IV contrast. Tiny nonob structing renal calculus is identified. No hydronephrosis or hydroureter. AORTA AND RETROPERITONEUM: No aneurysm. No retroperitoneal masses or adenopathy. BOWEL AND PERITONEAL CAVITY: No obvious masses or inflammatory changes. No free fluid. APPENDIX: Not identified PELVIS, BLADDER, AND ABDOMINAL WALL:No abnormal masses. No free fluid. Bladder normal. BONES: No significant findings. OTHER: No other significant finding. IMPRESSION: Tiny nonobstructing left renal calculus. No other significant intra-abdominal or pelvic abnormalities were identified. Other findings as noted above COMMENT: Quality ID # [id number]: Final reports with documentation of one or more dose reduction techniques (e.g., Automated exposure control, adjustment of the mA and/or kV according to patient size, use of iterative reconstruction technique) TECHNICAL DOCUMENTATION: JOB ID: [id number]- All Rights Reserved Reading location - IP/workstation name: [email or web address]
[2018-03-10 16:54] LABS: ABSOLUTE BASOPHILS # (AUTO) 0.1 10^3/uL (0.0-0.2); ABSOLUTE EOSINOPHILS # (AUTO) 0.1 10^3/uL (0.0-0.6); ABSOLUTE LYMPHOCYTES (AUTO) 4.1 10^3/uL (0.5-4.7); ABSOLUTE NEUT (AUTO) 7.5 10^3/uL (1.7-8.2); BASOPHILS % (AUTO) 0.7 % (0-2); EOSINOPHILS % (AUTO) 0.9 % (0-6); HEMATOCRIT 46.6 % (37.9-51.0); HEMOGLOBIN 15.9 g/dL (13.5-17.0); MEAN CORPUSCULAR HEMOGLOBIN 31.2 pg (27.0-33.4); MEAN CORPUSCULAR HGB CONC 34.1 g/dL (32.0-36.0); MEAN CORPUSCULAR VOLUME 92 fl (80-97); MONOCYTES % (AUTO) 7.6 % (3-13); PLATELET COUNT 260 10^3/uL (150-450); RED BLOOD COUNT 5.08 10^6/uL (4.35-5.55); RED CELL DISTRIBUTION WIDTH 14.2 % (11.5-14.0); SEGMENTED NEUTROPHILS % (AUTO) 58.8 % (42-78); TOTAL CELLS COUNTED % (AUTO) 100 %; WHITE BLOOD COUNT 12.8 10^3/uL (4.0-10.5)
[2018-03-10 17:10] LABS: ANION GAP 14 (5-19); BLOOD UREA NITROGEN 18 mg/dL (7-20); CALCIUM 10.3 mg/dL (8.4-10.2); CARBON DIOXIDE 30 mmol/L (22-30); CHLORIDE 99 mmol/L (98-107); GLUCOSE 108 mg/dL (75-110); POTASSIUM 4.1 mmol/L (3.6-5.0); SODIUM 142.5 mmol/L (137-145)
[2018-03-10] MEDS ORDERED: METOCLOPRAMIDE HCL INJ/PF 10 MG/2 ML SDV IV ONE (17:44)
[2018-03-10] MEDS ORDERED: MORPHINE SULFATE 10 MG/ML INJ IV ONE (17:44)
[2018-03-10 17:46] LABS: APPEARANCE,URINE SLIGHTLY-CLOUDY; BILIRUBIN,URINE NEGATIVE (NEGATIVE); CALCIUM OXALATE CRYSTALS,URINE FEW /HPF; COLOR,URINE YELLOW; GLUCOSE, URINE NEGATIVE (NEGATIVE); KETONES,URINE NEGATIVE (NEGATIVE); LEUKOCYTE ESTERASE,URINE TRACE (NEGATIVE); NITRITE,URINE NEGATIVE (NEGATIVE); PROTEIN,URINE NEGATIVE (NEGATIVE); URINE SPECIFIC GRAVITY 1.015; UROBILINOGEN,URINE NEGATIVE mg/dL (<2.0)
--- NOTE | 2018-03-10 17:52 | ER Document Report ---
ED General - General Chief Complaint: Nausea/Vomiting Stated Complaint: VOMITING Time Seen by Provider: 03/10/18 15:44 TRAVEL OUTSIDE OF THE [place] IN LAST 30 DAYS: No - HPI Notes: Patient is a 37-year-old male with a history of recurrent kidney stones who presents to the ED complaining of left flank pain that radiates around to his groin, nausea and vomiting over the last 2-3 days. Patient states that his pains feel like previous kidney stones. Patient states that he actually feels like he Keegan passed a kidney stone and has the after spasming effects. Patient states that his nausea has been improved with Zofran given at triage, but it is starting to return. Patient states that the pain will come and go, but has been relatively constant recently. Patient states that he has had darker urine, but has had a decreased p.o. intake as well. He denies any drug allergies. No other significant past medical history. No surgical history to the abdomen aside from lithotripsies. Denies any headache, fever, neck pain, URI, sore throat, chest pain, palpitations, syncope, cough, shortness of breath , wheeze, dyspnea, diarrhea, urinary retention, loss of control of bowel or bladder, numbness/tingling, saddle anesthesia, muscle paralysis/weakness, or rash. - Related Data Allergies/Adverse Reactions: No Known Allergies Allergy (Verified 03/07/18 16:14) Past Medical History - Social History Smoking Status: Current Every Day Smoker Chew tobacco use (# tins/day): No Frequency of alcohol use: None Drug Abuse: Marijuana Family History: CAD, DM, Hypertension, Malignancy, Other - Mother and brother have SVT long QT and he states have both had a heart attack and on pacemaker defibrillator Patient has suicidal ideation: No Patient has homicidal ideation: No Renal/ Medical History: Reports: Hx Kidney Stones. Denies: Hx Peritoneal Dialysis Skin Medical History: Reports Hx MRSA Past Surgical History: Reports: Hx Kidney (Renal Surgery) - lithotripsy x7, Other - lithotrypsy - Immunizations Immunizations up to date: Yes Hx Diphtheria, Pertussis, Tetanus Vaccination: No Review of Systems - Review of Systems -: Yes All other systems reviewed and negative Physical Exam - Vital signs Vitals: Temp Pulse Resp BP Pulse Ox 98.7 F 85 16 149/82 H 99 03/10/18 14:18 03/10/18 14:18 03/10/18 14:18 03/10/18 14:18 03/10/18 14:18 - Notes Notes: PHYSICAL EXAMINATION: GENERAL: Well-appearing, well-nourished and in no acute distress. HEAD: Atraumatic, normocephalic. EYES: Pupils equal round and reactive to light, extraocular movements intact, sclera anicteric, conjunctiva are normal. ENT: Nares patent and without discharge. oropharynx clear without exudates. No tonsilar hypertrophy or erythema. Moist mucous membranes. NECK: Normal range of motion, supple without lymphadenopathy LUNGS: Breath sounds clear to auscultation bilaterally and equal. No wheezes rales or rhonchi. HEART: Regular rate and rhythm without murmurs, rubs, gallops. ABDOMEN: Soft, nontender, nondistended abdomen. No guarding, no rebound. No masses appreciated. Normal bowel sounds present. + mild left CVA tenderness to percussion. Musculoskeletal: FROM to passive/active. Strength 5+/5. Extremities: No cyanosis, clubbing, or edema b/l. Peripheral pulses 2+. Capillary refill less than 3 seconds. NEUROLOGICAL: Normal speech, normal gait. PSYCH: Normal mood, normal affect. SKIN: Warm, Dry, normal turgor, no rashes or lesions noted. Course - Re-evaluation Re-evalutation: 03/10/18 18:40 Patient is an afebrile, well-hydrated, 37-year-old male who presents to the ED with left flank pain which I suspect to be secondary to a recently passed stone. Patient also has a small nonobstructing stone to the left kidney without hydronephrosis. Vitals are acceptable without any significant tachycardia, tachypnea, or hypoxia. PE is otherwise unremarkable. Patient's abdomen is soft and nontender at this time. CBC, BMP are acceptable. Urinalysis showed a small amount of blood with some calcium oxalate. See CT scan results. Patient received fluids, pain medication as well as nausea meds. Patient is tolerating p.o. without any difficulties and is nontoxic- appearing. No other labs or imaging warranted at this time based on H&P. Patient is starting to feel much better. Low suspicion/risk for urosepsis, acute appendicitis, bowel obstruction, acute cholecystitis, perforated diverticulitis, incarcerated hernia, pancreatitis, perforated ulcer, peritonitis , sepsis, testicular torsion, or other systemic emergent condition at this time. Patient is aware that his condition can change from initial presentation and he needs to monitor symptoms closely and seek medical attention if any acute changes. I will send him home with a prescription for Flomax, Zofran, and a few tablets of morphine. Conservative measures otherwise for symptoms. Recheck with PCM in 2-3 days. Consider consult with a urologist/ct technician. Return to the ED with any worsening/concerning symptoms otherwise as reviewed in discharge. Patient is in agreement. - Vital Signs Vital signs: Temp Pulse Resp BP Pulse Ox 98.7 F 85 16 149/82 H 99 03/10/18 14:18 03/10/18 14:18 03/10/18 14:18 03/10/18 14:18 03/10/18 14:18 - Laboratory Result Diagrams: 03/10/18 16:24 03/10/18 16:24 Laboratory results interpreted by me: 03/10/18 03/10/18 03/10/18 15:50 16:24 16:24 WBC 12.8 H RDW 14.2 H Calcium 10.3 H Urine Blood SMALL H Ur Leukocyte Esterase TRACE H Discharge - Discharge Clinical Impression: Left flank pain Condition: Stable Disposition: HOME, SELF-CARE Instructions: Abdominal Pain ([facility]), Antinausea Medication ([facility]) Additional Instructions: Maintain adequate fluid and food intake Dewey diet ([employer] Bananas, rice, apples, toast, etc Zofran as needed tylenol if needed Monitor for any worsening symptoms Make sure you are staying hydrated enough to urinate and have normal BM's Recheck with your PCM in 2-3 days Consider consult with Urology/nephrology for ongoing/worsening symptoms Return to the ED with any worsening symptoms and/or development of fever, headache, chest pain, palpitations, syncope, shortness of breath, trouble breathing, abdominal pain, n/v/d, blood in stool/urine, weakness, or other worsening symptoms that are concerning to you. Prescriptions: Morphine Sulfate [Morphine Ir 15 Mg Tablet] 15 mg PO TID #10 tablet Ondansetron [Zofran Odt 4 mg Tablet] 1 - 2 tab PO Q4H PRN #15 tab.rapdis PRN Reason: For Nausea/Vomiting Tamsulosin HCl [Flomax] 0.4 mg PO DAILY #10 cap.er.24h Forms: Elevated Blood Pressure, Smoking Cessation Education Referrals: RADHA WELCH PA [NO LOCAL MD] - 03/12/18 [facility] [Provider Group] - Follow up as needed
[2018-03-10 19:01] VITALS: BP 166/80
== END 2018-03-10 18:59 | disposition home or self-care (01) ==
LOC: ER 14:03
DX: N20.0 Calculus of kidney (principal); R10.9 Unspecified abdominal pain; R11.2 Nausea with vomiting, unspecified; Z87.442 Personal history of urinary calculi; F17.200 Nicotine dependence, unspecified, uncomplicated
CPT/HCPCS: 99284; 96361; 96374; 96375; 36415; 87086; 85025; 80048; 81001; 74176; J1885; J2765; J2270; J2405; J7030

== ENCOUNTER 2018-03-20 21:34 | Emergency (ER) | payer MEDICAID ==
[2018-03-20 23:04] LABS: ABSOLUTE BASOPHILS # (AUTO) 0.1 10^3/uL (0.0-0.2); ABSOLUTE EOSINOPHILS # (AUTO) 0.1 10^3/uL (0.0-0.6); ABSOLUTE LYMPHOCYTES (AUTO) 3.4 10^3/uL (0.5-4.7); ABSOLUTE MONOCYTES (AUTO) 0.8 10^3/uL (0.1-1.4); ABSOLUTE NEUT (AUTO) 4.8 10^3/uL (1.7-8.2); BASOPHILS % (AUTO) 0.7 % (0-2); EOSINOPHILS % (AUTO) 1.6 % (0-6); HEMOGLOBIN 12.2 g/dL (13.5-17.0); LYMPHOCYTES % (AUTO) 36.4 % (13-45); MEAN CORPUSCULAR HEMOGLOBIN 31.4 pg (27.0-33.4); MEAN CORPUSCULAR VOLUME 92 fl (80-97); PLATELET COUNT 170 10^3/uL (150-450); RED CELL DISTRIBUTION WIDTH 14.5 % (11.5-14.0); SEGMENTED NEUTROPHILS % (AUTO) 52.3 % (42-78); TOTAL CELLS COUNTED % (AUTO) 100 %; WHITE BLOOD COUNT 9.3 10^3/uL (4.0-10.5)
[2018-03-20 23:06] LABS: AMORPHOUS SEDIMENT,URINE 1+ /HPF; APPEARANCE,URINE TURBID; BILIRUBIN,URINE NEGATIVE (NEGATIVE); COLOR,URINE AMBER; GLUCOSE, URINE NEGATIVE (NEGATIVE); KETONES,URINE NEGATIVE (NEGATIVE); LEUKOCYTE ESTERASE,URINE SMALL (NEGATIVE); NITRITE,URINE NEGATIVE (NEGATIVE); PROTEIN,URINE 30 mg/dL (NEGATIVE); URINE SPECIFIC GRAVITY 1.019; UROBILINOGEN,URINE NEGATIVE mg/dL (<2.0)
[2018-03-20] MEDS ORDERED: FENTANYL CITRATE INJ/PF 100 MCG/2 ML AMPUL IV ONE (23:16)
[2018-03-20 23:40] LABS: ALANINE AMINOTRANSFERASE 22 U/L (21-72); ALBUMIN 3.7 g/dL (3.5-5.0); ALKALINE PHOSPHATASE 48 U/L (38-126); ANION GAP 6 (5-19); ASPARTATE AMINO TRANSFERASE 18 U/L (17-59); BILIRUBIN,DIRECT 0.2 mg/dL (0.0-0.4); BILIRUBIN,TOTAL 0.5 mg/dL (0.2-1.3); BLOOD UREA NITROGEN 13 mg/dL (7-20); CALCIUM 9.2 mg/dL (8.4-10.2); CARBON DIOXIDE 30 mmol/L (22-30); CHLORIDE 106 mmol/L (98-107); GLUCOSE 93 mg/dL (75-110); LIPASE 170.8 U/L (23-300); POTASSIUM 3.9 mmol/L (3.6-5.0); SODIUM 142.2 mmol/L (137-145); TOTAL PROTEIN 6.3 g/dL (6.3-8.2)
[2018-03-21 00:23] VITALS: BP 117/67
--- NOTE | 2018-03-21 00:53 | ER Document Report ---
ED General - General Chief Complaint: Possible Kidney Stone Stated Complaint: FLANK PAIN/BLOOD IN URINE Time Seen by Provider: 03/20/18 22:52 Mode of Arrival: Ambulatory TRAVEL OUTSIDE OF THE [place] IN LAST 30 DAYS: No - HPI Patient complains to provider of: flank pain Onset: Just prior to arrival - 37-year-old male with a history of nephrolithiasis in the past who presents for evaluation of pain which started today along the left side consistent with previous nephrolithiasis. He had had approximately 5 days without symptoms leading up to this. He denies any fevers or chills, does endorse some pelvic radiation of the pain, denies any emesis diarrhea constipation chest pain shortness of breath or rashes. He is currently scheduled to see a urologist in 2 days. - Related Data Allergies/Adverse Reactions: No Known Allergies Allergy (Verified 03/20/18 21:35) Past Medical History - General Information source: Patient - Social History Smoking Status: Current Every Day Smoker Chew tobacco use (# tins/day): No Frequency of alcohol use: None Drug Abuse: Marijuana Family History: CAD, DM, Hypertension, Malignancy, Other - Mother and brother have SVT long QT and he states have both had a heart attack and on pacemaker defibrillator Patient has suicidal ideation: No Patient has homicidal ideation: No Renal/ Medical History: Reports: Hx Kidney Stones. Denies: Hx Peritoneal Dialysis Skin Medical History: Reports Hx MRSA Past Surgical History: Reports: Hx Kidney (Renal Surgery) - lithotripsy x7, Other - lithotrypsy - Immunizations Immunizations up to date: Yes Hx Diphtheria, Pertussis, Tetanus Vaccination: No Review of Systems - Review of Systems -: Yes All other systems reviewed and negative Physical Exam - Vital signs Vitals: Temp Pulse Resp BP Pulse Ox 97.9 F 86 18 145/83 H 99 03/20/18 21:38 03/20/18 21:38 03/20/18 21:38 03/20/18 21:38 03/20/18 21:38 - General General appearance: Alert, Anxious In distress: Mild - HEENT Head: Normocephalic Eyes: Normal Conjunctiva: Normal Cornea: Normal Extraocular movements intact: Yes Eyelashes: Normal Pupils: PERRL - Respiratory Respiratory status: No respiratory distress Chest status: Nontender Breath sounds: Normal Chest palpation: Normal - Cardiovascular Rhythm: Regular Heart sounds: Normal auscultation Murmur: No - Abdominal Inspection: Normal Distension: No distension Tenderness: Nontender Organomegaly: No organomegaly - Back Back: CVA tenderness - Extremities General upper extremity: Normal inspection, Nontender, Normal ROM, Normal strength General lower extremity: Normal inspection, Nontender, Normal ROM, Normal strength - Neurological Neuro grossly intact: Yes Cognition: Normal Orientation: AAOx4 [place] Coma Scale Eye Opening: Spontaneous [place] Coma Scale Verbal: Oriented [place] Coma Scale Motor: Obeys Commands [place] Coma Scale Total: 15 Speech: Normal Cranial nerves: Normal Cerebellar coordination: Normal Motor strength normal: LUE, RUE, LLE, RLE - Psychological Associated symptoms: Normal affect Course - Re-evaluation Re-evalutation: 03/21/18 03:29 37-year-old man presents for evaluation pain consistent with previous nephrolithiasis. Given that this patient has had nephrolithiasis in the past will defer imaging at this time, will plan for obtaining a urinalysis. Patient's urinalysis demonstrates symptoms suggestive of possible urinary tract infection in the setting of stone, will administer antibiotics including ciprofloxacin, person is currently afebrile able tolerate p.o. and overall well- appearing will plan for him to follow-up with urologist in 2 days we will give prescription for analgesia over that time. Patient currently to be discharged with return precautions if he was to become febrile she returned the emergency department, this was expressed to him multiple times as it could represent a surgical emergency. He verbalized understanding was in agreement the plan at this time. - Vital Signs Vital signs: Temp Pulse Resp BP Pulse Ox 97.9 F 73 16 117/67 97 03/21/18 00:20 03/21/18 00:20 03/21/18 00:20 03/21/18 00:20 03/21/18 00:20 - Laboratory Result Diagrams: 03/20/18 22:45 03/20/18 22:45 Laboratory results interpreted by me: 03/20/18 03/20/18 22:14 22:45 RBC 3.90 L Hgb 12.2 L Hct 36.0 L RDW 14.5 H Urine Protein 30 H Urine Blood SMALL H Ur Leukocyte Esterase SMALL H Discharge - Discharge Clinical Impression: Kidney stone on left side Condition: Good Disposition: HOME, SELF-CARE Instructions: Kidney Stone ([facility]) Additional Instructions: You are currently scheduled to see urologist in 2 days, use the medications prescribed until you are seen by her urologist. Return for fevers chills use the antibiotic as prescribed. Use the pain medication only as needed. Otherwise use ibuprofen every 6 hours. Prescriptions: Ciprofloxacin HCl [Cipro 500 mg Tablet] 500 mg PO BID #10 tablet Hydrocodone/Acetaminophen [[place] 5-325 mg Tablet] 1 tab PO Q6H #15 tablet Ondansetron [Zofran Odt 4 mg Tablet] 1 - 2 tab PO Q4H PRN #15 tab.rapdis PRN Reason: For Nausea/Vomiting
== END 2018-03-21 00:28 | disposition home or self-care (01) ==
LOC: ER 21:34
DX: N20.0 Calculus of kidney (principal); F17.200 Nicotine dependence, unspecified, uncomplicated
CPT/HCPCS: 99284; 36415; 83690; 85025; 80053; 81001; J3010

== ENCOUNTER 2018-09-24 18:50 | Emergency (ER) | payer MEDICAID ==
[2018-09-24] MEDS ORDERED: KETOROLAC TROMETHAMINE INJ/PF 30 MG/1 ML SDV IV ONE (20:41)
[2018-09-24] MEDS ORDERED: FENTANYL CITRATE INJ/PF 100 MCG/2 ML AMPUL IV ONE ×2 (20:46→22:05)
[2018-09-24] MEDS ORDERED: ONDANSETRON HCL INJ/PF 4 MG/2 ML SDV IV ONE (20:46)
[2018-09-24] MEDS ORDERED: PHENAZOPYRIDINE HCL 100 MG TABLET PO ONE (20:46)
[2018-09-24] MEDS ORDERED: NORMAL SALINE 1000 ML 1,000 ML IV ONE (20:46)
--- NOTE | 2018-09-24 20:47 | ER Document Report ---
ED GI/ <ROSA PUCKETT Arie - Last Filed: 09/24/18 23:42> - General TRAVEL OUTSIDE OF THE [place] IN LAST 30 DAYS: No - HPI Patient complains to provider of: Flank pain, Groin pain, Vomiting Timing/Duration: Gradual, Constant Quality of pain: Burning, Cramping Severity at maximum: Moderate Severity in ED: Moderate Pain Level: 3 Location: LLQ, Left flank <CLIF ROYAL - Last Filed: 09/24/18 23:50> - General Chief Complaint: Flank Pain Stated Complaint: LEFT FLANK PAIN, PAINFUL URINATION Time Seen by Provider: 09/24/18 20:40 Primary Care Provider: [facility] [Provider Group] - Follow up as needed RADHA WELCH PA [NO LOCAL MD] - Follow up as needed Notes: 38-year-old male to the emergency department chief complaint of left flank pain and left lower quadrant pain radiating to his testicle. Long-standing history of kidney stones. Does have some pain with urination. No discharge. No hematuria reported. Has had more CT scans and he can count. (CLIF ROYAL) - Related Data Allergies/Adverse Reactions: No Known Allergies Allergy (Verified 05/14/18 23:57) Past Medical History - General Information source: Patient - Social History Smoking Status: Current Every Day Smoker Chew tobacco use (# tins/day): No Frequency of alcohol use: None Drug Abuse: None Lives with: Spouse/Significant other Family History: CAD, DM, Hypertension, Malignancy, Other - Mother and brother have SVT long QT and he states have both had a heart attack and on pacemaker defibrillator Patient has suicidal ideation: No Patient has homicidal ideation: No Renal/ Medical History: Reports: Hx Kidney Stones. Denies: Hx Peritoneal Dialysis Skin Medical History: Reports Hx MRSA Past Surgical History: Reports: Hx Kidney (Renal Surgery) - lithotripsy x7, Other - lithotrypsy - Immunizations Immunizations up to date: Yes Hx Diphtheria, Pertussis, Tetanus Vaccination: No <CLIF ROYAL - Last Filed: 09/24/18 23:50> Review of Systems <CLIF ROYAL - Last Filed: 09/24/18 23:50> - Review of Systems Notes: Constitutional: denies: Chills, Diaphoresis, Fever, Malaise, Weakness EENT: denies: Eye discharge, Blurred vision, Tearing, Double vision, Nose congestion, Nose discharge, Throat swelling, Mouth pain Cardiovascular: denies: Palpitations, Heart racing, Orthopnea, Dyspnea, Chest pain Respiratory: denies: Cough, Hurts to breathe, Wheezing, Shortness of breath Gastrointestinal: denies: Abdominal pain, Diarrhea, Nausea, Vomiting, Black stools, bright red blood in stool Genitourinary: denies: Burning, Dysuria, Discharge, Frequency, +Flank pain, - Hematuria Musculoskeletal: denies: Joint pain, Joint swelling, Muscle pain, Muscle st iffness, back pain Hematologic/Lymphatic: denies: Anemia, Easy bleeding, Easy bruising, Blood clot s Neurological/Psychological: denies: Confusion, Dementia, Depression, Loss of consciousness Skin: No lesions, no masses, no skin breakdown, no abscesses (CLIF ROYAL) Physical Exam - Vital signs Interpretation: Normal - General General appearance: Appears well, Alert - HEENT Head: Normocephalic, Atraumatic Eyes: Normal Pupils: PERRL - Respiratory Respiratory status: No respiratory distress Chest status: Nontender Breath sounds: Normal Chest palpation: Normal - Cardiovascular Rhythm: Regular Heart sounds: Normal auscultation Murmur: No - Abdominal Inspection: Normal Distension: No distension Bowel sounds: Normal Tenderness: Nontender Organomegaly: No organomegaly - Genitourinary Inspection: Normal Tenderness: Nontender Cremasteric reflex: Normal Scrotum: Normal - Back Back: Normal, Nontender - Extremities General upper extremity: Normal inspection, Nontender, Normal color, Normal ROM, Normal temperature General lower extremity: Normal inspection, Nontender, Normal color, Normal ROM, Normal temperature, Normal weight bearing. No: Yenifer's sign - Neurological Neuro grossly intact: Yes Cognition: Normal Orientation: AAOx4 [place] Coma Scale Eye Opening: Spontaneous [place] Coma Scale Verbal: Oriented [place] Coma Scale Motor: Obeys Commands [place] Coma Scale Total: 15 Speech: Normal Motor strength normal: LUE, RUE, LLE, RLE Sensory: Normal - Psychological Associated symptoms: Normal affect, Normal mood - Skin Skin Temperature: Warm Skin Moisture: Dry Skin Color: Normal <CLIF ROYAL - Last Filed: 09/24/18 23:50> - Vital signs Vitals: Temp Pulse Resp BP Pulse Ox 99.4 F 80 18 155/78 H 97 09/24/18 18:54 09/24/18 18:54 09/24/18 18:54 09/24/18 18:54 09/24/18 18:54 Course - Laboratory Result Diagrams: 09/24/18 21:24 09/24/18 21:24 <ROSA PUCKETT - Last Filed: 09/24/18 23:42> - Laboratory Result Diagrams: 09/24/18 21:24 09/24/18 21:24 <CLIF ROYAL - Last Filed: 09/24/18 23:50> - Re-evaluation Re-evalutation: 09/24/18 22:01 Patient has no blood in his urine. Will order an ultrasound. Will give some pain medication but at this time he has a normal testicular exam, nontoxic appearing abdomen. Of note patient has had 10 CAT scans within the last 7 years. This is a huge concern for radiation exposure. In the absence of any type of toxic appearing labs or physical exam I do not feel comfortable ordering anything other than a KUB and ultrasound at this time as unfortunately I think you more likely will have a kidney stone or some sort of pathology which we do not necessarily need to see on a CT scan right now. (CLIF ROYAL) - Vital Signs Vital signs: Temp Pulse Resp BP Pulse Ox 98.6 F 61 20 127/87 H 99 09/24/18 23:45 09/24/18 23:45 09/24/18 23:45 09/24/18 23:45 09/24/18 23:45 - Laboratory Laboratory results interpreted by me: 09/24/18 21:24 ALT 18 L Discharge <ROSA PUCKETT - Last Filed: 09/24/18 23:42> <CLIF ROYAL - Last Filed: 09/24/18 23:50> - Discharge Clinical Impression: Acute left flank pain Condition: Good Disposition: HOME, SELF-CARE Instructions: Flank Pain ([facility]) Additional Instructions: Follow up with your doctor as soon as possible. Return for any worsening pain or symptoms Prescriptions: Hydrocodone/Acetaminophen [[place] 5-325 mg Tablet] 1 tab PO TID PRN 4 Days #12 tablet PRN Reason: Referrals: RADHA WELCH PA [NO LOCAL MD] - Follow up as needed [facility] [Provider Group] - Follow up as needed
[2018-09-24 21:08] LABS: AMORPHOUS SEDIMENT,URINE TRACE /HPF; APPEARANCE,URINE CLOUDY; BILIRUBIN,URINE NEGATIVE (NEGATIVE); COLOR,URINE YELLOW; GLUCOSE, URINE NEGATIVE (NEGATIVE); KETONES,URINE NEGATIVE (NEGATIVE); LEUKOCYTE ESTERASE,URINE NEGATIVE (NEGATIVE); NITRITE,URINE NEGATIVE (NEGATIVE); PROTEIN,URINE NEGATIVE (NEGATIVE); URINE SPECIFIC GRAVITY 1.015; UROBILINOGEN,URINE NEGATIVE mg/dL (<2.0)
[2018-09-24 21:41] LABS: ABSOLUTE EOSINOPHILS # (AUTO) 0.1 10^3/uL (0.0-0.6); ABSOLUTE LYMPHOCYTES (AUTO) 2.9 10^3/uL (0.5-4.7); ABSOLUTE MONOCYTES (AUTO) 0.8 10^3/uL (0.1-1.4); ABSOLUTE NEUT (AUTO) 6.6 10^3/uL (1.7-8.2); BASOPHILS % (AUTO) 0.3 % (0-2); EOSINOPHILS % (AUTO) 0.6 % (0-6); HEMOGLOBIN 14.6 g/dL (13.5-17.0); LYMPHOCYTES % (AUTO) 27.9 % (13-45); MEAN CORPUSCULAR HEMOGLOBIN 32.3 pg (27.0-33.4); MEAN CORPUSCULAR HGB CONC 34.8 g/dL (32.0-36.0); MEAN CORPUSCULAR VOLUME 93 fl (80-97); MONOCYTES % (AUTO) 7.8 % (3-13); PLATELET COUNT 155 10^3/uL (150-450); RED BLOOD COUNT 4.53 10^6/uL (4.35-5.55); RED CELL DISTRIBUTION WIDTH 13.1 % (11.5-14.0); SEGMENTED NEUTROPHILS % (AUTO) 63.4 % (42-78); TOTAL CELLS COUNTED % (AUTO) 100 %; WHITE BLOOD COUNT 10.5 10^3/uL (4.0-10.5)
[2018-09-24] MEDS ORDERED: HYDROCODONE/ACETAMINOPHEN 5-325 MG (6 TAB/ER DISP) PO PRN (21:47)
--- NOTE | 2018-09-24 22:07 | RADIOLOGY REPORT (SQ) ---
EXAM DESCRIPTION: XR ABDOMEN 1 VIEW (KUB) COMPLETED DATE/TME: 09/24/2018 20:46 CLINICAL HISTORY: 38 years, Male, left fl pain Findings: Mild amount stool in the colon. No significant dilated loops of bowel. No air-fluid levels. No abnormal calcifications. IMPRESSION: Nonspecific bowel gas pattern.
[2018-09-24 22:11] LABS: ALANINE AMINOTRANSFERASE 18 U/L (21-72); ALBUMIN 4.4 g/dL (3.5-5.0); ALKALINE PHOSPHATASE 61 U/L (38-126); ANION GAP 6 (5-19); ASPARTATE AMINO TRANSFERASE 20 U/L (17-59); BILIRUBIN,DIRECT 0.1 mg/dL (0.0-0.4); BILIRUBIN,TOTAL 0.5 mg/dL (0.2-1.3); BLOOD UREA NITROGEN 14 mg/dL (7-20); CALCIUM 9.6 mg/dL (8.4-10.2); CARBON DIOXIDE 27 mmol/L (22-30); CHLORIDE 105 mmol/L (98-107); GLUCOSE 100 mg/dL (75-110); SODIUM 137.9 mmol/L (137-145); TOTAL PROTEIN 7.4 g/dL (6.3-8.2)
--- NOTE | 2018-09-24 23:36 | RADIOLOGY REPORT (SQ) ---
US RETROPERITONEUM LIMITED HISTORY: Left flank pain. COMPARISON: 03/11/2017 TECHNIQUE: Grayscale and color Doppler ultrasound images of the kidneys were obtained. FINDINGS: The right kidney measures 9.6 cm in length, which is normal size. The cortex has normal thickness and echogenicity. There is a 1.2 cm cyst in the upper pole. There are punctate echogenic structures which may represent nonobstructing stones. The left kidney measures xxx in length, which is normal size. The cortex has normal thickness and echogenicity. There are multiple cysts, the largest measuring 2.3 cm in the upper pole. There are punctate echogenic structures which may represent nonobstructing stones. The urinary bladder is unremarkable. IMPRESSION: 1. Possible bilateral nonobstructing renal stones versus artifact. 2. No hydronephrosis. 3. Bilateral renal cysts.
--- NOTE | 2018-09-24 23:42 | ER Document Report ---
Doctor's Note Notes: 09/24/18 23:41 Patient seen and reexamined. Please see Dr. Russo's note for the remainder this patient's ED course and disposition. In short, the patient still had an ultrasound pending. No evidence of obstructive stone or hydronephrosis was found on ultrasound. On recheck the patient did continue to have some mild left lower quadrant tenderness, but states his pain had improved. No rebound or guarding. Feels comfortable with the discharge plan will follow-up with his primary care physician.
[2018-09-24 23:46] VITALS: BP 127/87
== END 2018-09-24 23:53 | disposition home or self-care (01) ==
LOC: ER 18:50
DX: R10.9 Unspecified abdominal pain (principal); R10.32 Left lower quadrant pain; R30.9 Painful micturition, unspecified; N50.812 Left testicular pain; F17.200 Nicotine dependence, unspecified, uncomplicated
CPT/HCPCS: 96376; 99284; 96361; 96374; 96375; 36415; 87086; 85025; 80053; 81001; 74018; 76775; J3010; J1885; J3490; J2405; J7030

== ENCOUNTER 2018-11-25 20:05 | Emergency (ER) | payer MEDICAID ==
[2018-11-25] MEDS ORDERED: HYDROCODONE/ACETAMINOPHEN 5-325 MG TABLET PO ONE (20:56)
--- NOTE | 2018-11-25 21:33 | RADIOLOGY REPORT (SQ) ---
EXAM DESCRIPTION: XR ELBOW 1-2 VIEWS COMPLETED DATE/TME: 11/25/2018 20:41 CLINICAL HISTORY: injury 3 weeks ago, pop snap bruising todaylifting COMPARISON: None FINDINGS: Two x-ray views of the left elbow were submitted. There is no acute fracture or dislocation. Bone mineralization is within normal limits. There is a supracondylar spur. There is no radiopaque foreign body material. IMPRESSION: No acute fracture or dislocation. Incidental note of a supracondylar spur.
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
[2018-11-25] MEDS ORDERED: HYDROCODONE/ACETAMINOPHEN 5-325 MG (6 TAB/ER DISP) PO PRN (21:49)
[2018-11-25 21:51] VITALS: BP 121/81
== END 2018-11-25 22:04 | disposition home or self-care (01) ==
LOC: ER 20:05
DX: S50.02XA Contusion of left elbow, initial encounter (principal); X50.0XXA Overexertion from strenuous movement or load, initial encounter; M77.8 Other enthesopathies, not elsewhere classified; F17.200 Nicotine dependence, unspecified, uncomplicated; F12.10 Cannabis abuse, uncomplicated
CPT/HCPCS: 99283

== ENCOUNTER 2018-12-12 03:28 | Emergency (ER) | payer MEDICAID ==
[2018-12-12 04:30] LABS: APPEARANCE,URINE TURBID; BILIRUBIN,URINE NEGATIVE (NEGATIVE); COLOR,URINE YELLOW; GLUCOSE, URINE NEGATIVE (NEGATIVE); KETONES,URINE NEGATIVE (NEGATIVE); LEUKOCYTE ESTERASE,URINE MODERATE (NEGATIVE); NITRITE,URINE NEGATIVE (NEGATIVE); PROTEIN,URINE 30 mg/dL (NEGATIVE); URINE SPECIFIC GRAVITY 1.015; UROBILINOGEN,URINE NEGATIVE mg/dL (<2.0)
--- NOTE | 2018-12-12 06:42 | RADIOLOGY REPORT (SQ) ---
EXAM DESCRIPTION: CT ABDOMEN PELVIS WITHOUT IV CONTRAST COMPLETED DATE/TME: 12/12/2018 06:12 CLINICAL HISTORY: 38 years, Male, left flank pain COMPARISON: 03/10/2018 CT TECHNIQUE: 331 Images stored on PACS. All CT scanners at this facility use dose modulation, iterative reconstruction, and/or weight based dosing when appropriate to reduce radiation dose to as low as reasonably achievable (ALARA). [facility]: Dose Right [facility]: CareDose [facility]: Dose Right [facility]: Teradose 4D [facility]: Linksy LIMITATIONS: None. FINDINGS: Limited evaluation of the lung bases shows scarring with groundglass reticulonodular change in the left lung base consistent with pneumonitis. Osseous structures are grossly intact. Limited evaluation of the liver, spleen, adrenal glands, pancreas is unremarkable. Punctate nonobstructing 2 mm left renal calculus. Cyst in the superior pole of the left kidney. No obstructing calculus or hydronephrosis. No gross evidence for bowel obstruction. No free air or free fluid. Normal appendix. IMPRESSION: Minimal pneumonitis left lung base. Punctate nonobstructing left renal calculus. No obstructing calculus or hydronephrosis TECHNICAL DOCUMENTATION: Quality ID # [id number]: Final reports with documentation of one or more dose reduction techniques (e.g., Automated exposure control, adjustment of the mA and/or kV according to patient size, use of iterative reconstruction technique) copyright 2011 [employer]- All Rights Reserved
[2018-12-12] MEDS ORDERED: HYDROMORPHONE HCL INJ/PF 2 MG/ML AMPULE IV ONE (06:45)
[2018-12-12] MEDS ORDERED: ONDANSETRON HCL INJ/PF 4 MG/2 ML SDV IV ONE (06:45)
--- NOTE | 2018-12-12 06:46 | ER Document Report ---
ED General - General Chief Complaint: Possible Kidney Stone Stated Complaint: BLOODY URINE Time Seen by Provider: 12/12/18 06:11 Primary Care Provider: EMIGDIO DEXTER MD [NO LOCAL MD] - Follow up as needed Notes: With left flank pain radiating to the left groin onset 2 days ago, now severe. Has had multiple times, he had multiple kidney infections and stones has been stented and had lithotripsy. Many times he has had this he says he has been investigated for stones and is not had a stone. He denies fever. He had some mild testicle pain "like blue balls" 2 days ago but that resolved. He denies any history of STIs and is monogamous with his of 7 years. TRAVEL OUTSIDE OF THE [place] IN LAST 30 DAYS: No - Related Data Allergies/Adverse Reactions: No Known Allergies Allergy (Verified 05/14/18 23:57) Past Medical History - Social History Smoking Status: Current Some Day Smoker Chew tobacco use (# tins/day): No Frequency of alcohol use: None Drug Abuse: None Family History: CAD, DM, Hypertension, Malignancy, Other - Mother and brother have SVT long QT and he states have both had a heart attack and on pacemaker defibrillator Patient has suicidal ideation: No Patient has homicidal ideation: No Renal/ Medical History: Reports: Hx Kidney Stones. Denies: Hx Peritoneal Dialysis Skin Medical History: Reports Hx MRSA Past Surgical History: Reports: Hx Kidney (Renal Surgery) - lithotripsy x7, Other - lithotrypsy - Immunizations Immunizations up to date: Yes Hx Diphtheria, Pertussis, Tetanus Vaccination: No Review of Systems - Review of Systems Notes: REVIEW OF SYSTEMS GEN: Denies fever, chills, weight loss ENT: Denies sore throat, nasal discharge, ear pain EYES: Denies blurry vision, eye pain, discharge CV: Denies chest pain, palpitations, edema RESP: Denies cough, shortness of breath, wheezing GI: Left flank pain, hematuria MSK: Denies joint pain/swelling, edema, SKIN: Denies rash, skin lesions LYMPH: Denies swollen glands/lymph nodes NEURO: Denies headache, focal weakness or numbness, dizziness PSYCH: Denies depression, suicidal or homicidal ideation PHYSICAL EXAMINATION General: No acute distress, well-nourished Head: Atraumatic, normocephalic ENT: Mouth normal, oropharynx moist, no exudates or tonsillar enlargement Eyes: Conjunctiva normal, pupils equal, lids normal Neck: No JVD, supple, no guarding CVS: Normal rate, regular rhythm, no murmurs Resp: No resp distress, equal and normal breath sounds bilaterally GI: Nondistended, soft, mild left CVA tenderness to palpation, no rebound or guarding Ext: No deformities, no edema, normal range of motion in upper and lower ext Back: No CVA or midline TTP Skin: No rash, warm Lymphatic: No lymphadeopathy noted Neuro: Awake, alert. Face symmetric. GCS 15. Physical Exam - Vital signs Vitals: Temp Pulse Resp BP Pulse Ox 98.5 F 79 16 128/82 H 96 12/12/18 03:34 12/12/18 03:34 12/12/18 03:34 12/12/18 03:34 12/12/18 03:34 Course - Re-evaluation Re-evalutation: 12/12/18 07:07 Recurrent flank pain and hematuria with mild tenderness. No fever. We will treat pain and symptoms. Labs show hematuria and some signs of infection. CT does not show a thickened obstructing stone. I have a concern for small stones recurrent stone disease and pyonephritis/abnormal kidneys requiring further vesication by urology. The patient has an appointment in February with lobe urologist. I will give him antibiotic course including Ceftin, as well as pain medication nausea medication. Return precautions given. I have discussed with the patient there likely diagnosis, aftercare plan, follow-up plans and my usual and customary return precautions. They verbalized understanding of this. 12/12/18 13:[address] does not show stone. I will treat him for renal colic/in fection, and refer him to urology. - Vital Signs Vital signs: Temp Pulse Resp BP Pulse Ox 98.0 F 71 18 123/79 96 12/12/18 06:59 12/12/18 06:59 12/12/18 06:59 12/12/18 06:59 12/12/18 06:59 - Laboratory Laboratory results interpreted by me: 12/12/18 04:00 Urine Protein 30 H Urine Blood LARGE H Ur Leukocyte Esterase MODERATE H - Diagnostic Test Radiology reviewed: Image reviewed, Reports reviewed Discharge - Discharge Clinical Impression: Flank pain Condition: Good Disposition: HOME, SELF-CARE Instructions: Pyelonephritis ([facility]) Additional Instructions: You have signs of kidney stone on your urine but no actual stone on your CAT scan. There are also signs of infection. I am treating you with antibiotics. Your diagnosis is still unclear and you do require follow-up with a urologist. Prescriptions: Cefuroxime Axetil [Ceftin 500 mg Tablet] 1 tab PO BID #20 tablet Ondansetron HCl [Zofran 4 mg Tablet] 1 - 2 tab PO Q4H PRN #10 tablet PRN Reason: Oxycodone HCl/Acetaminophen [Percocet 5-325 mg Tablet] 1 tab PO ASDIR PRN #15 ta b PRN Reason: Referrals: EMIGDIO DEXTER MD [NO LOCAL MD] - Follow up as needed
[2018-12-12 07:05] VITALS: BP 123/79
== END 2018-12-12 07:12 | disposition home or self-care (01) ==
LOC: ER 03:28
DX: R10.9 Unspecified abdominal pain (principal); R31.9 Hematuria, unspecified; F17.200 Nicotine dependence, unspecified, uncomplicated; Z87.442 Personal history of urinary calculi; Z86.14 Personal history of Methicillin resistant Staphylococcus aureus infection
CPT/HCPCS: 99285; 81001; 74176; J1170; J2405

== ENCOUNTER 2019-03-04 11:53 | Emergency (ER) | payer MEDICAID ==
[2019-03-04 12:26] VITALS: BP 116/54
--- NOTE | 2019-03-04 12:32 | ER Document Report ---
ED Medical Screen (RME) - General Chief Complaint: Fall Stated Complaint: FALL Time Seen by Provider: 03/04/19 12:26 Notes: Patient is a 38-year-old male who presents to the emergency department after a fall. Patient states around 9 AM he was on top of a 6 foot ladder when he went to reach out for something and lost the balance on the ladder. Patient states he fell onto the ladder that it hit the ground. Patient states the ground was sand. Patient reports left rib pain that is worse with cough and deep breathing. Patient reports an abrasion to the left lateral ribs. Patient denies head injury or loss of consciousness. Patient states he did take Tylenol prior to arrival. TRAVEL OUTSIDE OF THE [place] IN LAST 30 DAYS: No - Related Data Allergies/Adverse Reactions: No Known Allergies Allergy (Verified 05/14/18 23:57) Past Medical History Renal/ Medical History: Reports: Hx Kidney Stones. Denies: Hx Peritoneal Dialysis Skin Medical History: Reports Hx MRSA Past Surgical History: Reports: Hx Kidney (Renal Surgery) - lithotripsy x7, Other - lithotrypsy - Immunizations Immunizations up to date: Yes Hx Diphtheria, Pertussis, Tetanus Vaccination: No Physical Exam - Vital signs Vitals: Temp Pulse BP Pulse Ox 98.3 F 58 L 116/54 L 100 03/04/19 12:04 03/04/19 12:04 03/04/19 12:04 03/04/19 12:04 - Respiratory Respiratory status: No respiratory distress Chest status: Tender - left lateral rib pain Breath sounds: Normal Chest palpation: Normal Course - Re-evaluation Re-evalutation: 03/04/19 12:32 I have greeted and performed a rapid initial assessment of this patient. A comprehensive ED assessment and evaluation of the patient, analysis of test results and completion of the medical decision making process will be conducted by additional ED providers. - Vital Signs Vital signs: Temp Pulse Resp BP Pulse Ox 98.3 F 58 L 116/54 L 100 03/04/19 12:04 03/04/19 12:04 03/04/19 12:04 03/04/19 12:04
--- NOTE | 2019-03-04 12:51 | RADIOLOGY REPORT (SQ) ---
EXAM DESCRIPTION: RIBS LEFT W/PA CHEST COMPLETED DATE/TIME: 03/04/2019 12:42 pm REASON FOR STUDY: fell off 6 ft ladder, left rib pain COMPARISON: 03/07/2018 TECHNIQUE: Frontal view of the chest and additional views of the left ribs acquired. NUMBER OF VIEWS: Four view. LIMITATIONS: None. FINDINGS: FRONTAL CXR: No pneumothorax. No pleural effusion. No atelectasis or infiltrates. RIBS: No displaced rib fractures. No lytic or blastic bony lesions. OTHER: No other significant finding. IMPRESSION: NO PNEUMOTHORAX. NO DISPLACED RIB FRACTURES. COMMENT: SITE OF TRAUMA/COMPLAINT MARKED/STAMP COMPLETED: NO. TECHNICAL DOCUMENTATION: JOB ID: [id number] [employer]- All Rights Reserved Reading location - IP/workstation name: [email or web address]
[2019-03-04] MEDS ORDERED: OXYCODONE-ACETAMINOPHEN 5-325 MG TABLET PO ONE (13:40)
--- NOTE | 2019-03-04 13:59 | ER Document Report ---
ED Fall - General Chief Complaint: Fall Stated Complaint: FALL Time Seen by Provider: 03/04/19 12:26 TRAVEL OUTSIDE OF THE [place] IN LAST 30 DAYS: No - HPI Notes: Patient is a 38-year-old male who presents emergency department for evaluation. He was standing on a ladder, 6 feet off the ground, when he fell. He struck his left ribs on the side of the ladder. He denies hitting his head or losing consciousness. He has no neck or back pain. He has no shortness of breath. Is not any blood thinners. His pain is worsened with deep breath, nothing seems to make it better. - Related data Allergies/Adverse Reactions: No Known Allergies Allergy (Verified 05/14/18 23:57) Past Medical History - General Information source: Patient - Social History Smoking Status: Current Every Day Smoker Family History: CAD, DM, Hypertension, Malignancy, Other - Mother and brother have SVT long QT and he states have both had a heart attack and on pacemaker defibrillator Patient has suicidal ideation: No Patient has homicidal ideation: No Renal/ Medical History: Reports: Hx Kidney Stones. Denies: Hx Peritoneal Dialysis Skin Medical History: Reports Hx MRSA Past Surgical History: Reports: Hx Kidney (Renal Surgery) - lithotripsy x7, Other - lithotrypsy - Immunizations Immunizations up to date: Yes Hx Diphtheria, Pertussis, Tetanus Vaccination: No Review of Systems - Review of Systems Constitutional: No symptoms reported EENT: No symptoms reported Cardiovascular: See HPI Respiratory: See HPI Gastrointestinal: No symptoms reported Genitourinary: No symptoms reported Musculoskeletal: No symptoms reported, Joint pain Neurological/Psychological: No symptoms reported Physical Exam - Vital signs Vitals: Temp Pulse BP Pulse Ox 98.3 F 58 L 116/54 L 100 03/04/19 12:04 03/04/19 12:04 03/04/19 12:04 03/04/19 12:04 - Notes Notes: Vital signs reviewed, please refer to chart. Head is normocephalic, atraumatic. Pupils equal round, reactive to light. Neck is supple without meningismus. Heart is regular rate and rhythm. Lungs are clear to auscultation bilaterally. Patient has an abrasion with significant tenderness over the lateral aspect of the left eighth rib. No crepitance, no subcutaneous emphysema. Chest wall excursion is equal bilaterally. Abdomen is soft, nontender, normoactive bowel sounds throughout. Donation of the spine yields no midline tenderness or step- off. No paraspinal muscular tenderness appreciated extremities without cyanosis, clubbing. Posterior calves are nontender. Peripheral pulses are equal. Skin is warm and dry. Patient is awake, alert, neurological exam is nonfocal. Course - Re-evaluation Re-evalutation: 03/04/19 13:55 Presents emergency department for evaluation. He was evaluated with rib series was found to be unremarkable. His vitals are stable, he is oxygenating well. He is told to quit smoking. He is given incentive spirometer. We will send him home with anti-inflammatories and a small amount of pain medication. He is to follow-up with his doctor this week, return to the ED with worsening or new concerning symptoms of any sort. - Vital Signs Vital signs: Temp Pulse Resp BP Pulse Ox 98.3 F 58 L 116/54 L 100 03/04/19 12:04 03/04/19 12:04 03/04/19 12:04 03/04/19 12:04 Discharge - Discharge Clinical Impression: Contusion of rib on left side Qualifiers: Encounter type: initial encounter Qualified Code(s): S20.212A - Contusion of left front wall of thorax, initial encounter Condition: Stable Disposition: HOME, SELF-CARE Instructions: Rib Contusion ([facility]) Additional Instructions: Use incentive spirometer as instructed. Take pain medication as directed. If you develop fever, cough, difficulty breathing, or any other new or concerning symptoms, return immediately to the emergency department for evaluation.
== END 2019-03-04 14:24 | disposition home or self-care (01) ==
LOC: ER 11:53
DX: S20.212A Contusion of left front wall of thorax, initial encounter (principal); W11.XXXA Fall on and from ladder, initial encounter; Y99.0 Civilian activity done for income or pay; F17.200 Nicotine dependence, unspecified, uncomplicated
CPT/HCPCS: 99283

== ENCOUNTER 2019-04-03 18:22 | Emergency (ER) | payer MEDICAID ==
[2019-04-03 18:28] VITALS: BP 158/84
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
== END 2019-04-03 19:31 | disposition home or self-care (01) ==
LOC: ER 18:22
DX: M77.11 Lateral epicondylitis, right elbow (principal); M25.521 Pain in right elbow; W23.0XXA Caught, crushed, jammed, or pinched between moving objects, initial encounter; F17.200 Nicotine dependence, unspecified, uncomplicated
CPT/HCPCS: 99283

== ENCOUNTER 2019-06-15 19:49 | Emergency (ER) | payer MEDICAID ==
[2019-06-15] MEDS ORDERED: KETOROLAC TROMETHAMINE INJ/PF 30 MG/1 ML SDV IV ONE (20:19)
[2019-06-15] MEDS ORDERED: ONDANSETRON HCL INJ/PF 4 MG/2 ML SDV IV ONE (20:19)
--- NOTE | 2019-06-15 20:20 | ER Document Report ---
ED Medical Screen (RME) - General Chief Complaint: Urinary Problem Stated Complaint: BLOOD IN URINE Time Seen by Provider: 06/15/19 20:17 Primary Care Provider: NATACHA BAIG PA-C [Primary Care Provider] - Follow up as needed Information source: Patient Notes: Patient presents with hematuria with left flank pain that radiates to the left side of the abdomen for the past 2 days. Patient does report nausea and vomiting. Patient does have a history of kidney stones and suspects the same today. I have greeted and performed a rapid initial assessment of this patient. A comprehensive ED assessment and evaluation of the patient, analysis of test results and completion of the medical decision making process will be conducted by additional ED providers. TRAVEL OUTSIDE OF THE [place] IN LAST 30 DAYS: No - Related Data Allergies/Adverse Reactions: No Known Allergies Allergy (Verified 05/14/18 23:57) Past Medical History Renal/ Medical History: Reports: Hx Kidney Stones. Denies: Hx Peritoneal Dialysis Skin Medical History: Reports Hx MRSA Past Surgical History: Reports: Hx Kidney (Renal Surgery) - lithotripsy x7, Other - lithotrypsy - Immunizations Immunizations up to date: Yes Hx Diphtheria, Pertussis, Tetanus Vaccination: No Physical Exam - Vital signs Vitals: Temp Pulse Resp BP Pulse Ox 98.1 F 71 16 126/77 H 100 06/15/19 20:00 06/15/19 20:00 06/15/19 20:00 06/15/19 20:00 06/15/19 20:00 - Abdominal Tenderness: Tender - Left lower quadrant - Back Back: CVA tenderness - Left Course - Vital Signs Vital signs: Temp Pulse Resp BP Pulse Ox 98.1 F 71 16 126/77 H 100 06/15/19 20:00 06/15/19 20:00 06/15/19 20:00 06/15/19 20:00 06/15/19 20:00 Doctor's Discharge - Discharge Referrals: NATACHA BAIG PA-C [Primary Care Provider] - Follow up as needed
[2019-06-15 20:44] LABS: ABSOLUTE BASOPHILS # (AUTO) 0.1 10^3/uL (0.0-0.2); ABSOLUTE EOSINOPHILS # (AUTO) 0.2 10^3/uL (0.0-0.6); ABSOLUTE LYMPHOCYTES (AUTO) 4.2 10^3/uL (0.5-4.7); ABSOLUTE MONOCYTES (AUTO) 0.7 10^3/uL (0.1-1.4); ABSOLUTE NEUT (AUTO) 5.5 10^3/uL (1.7-8.2); BASOPHILS % (AUTO) 0.7 % (0-2); EOSINOPHILS % (AUTO) 1.5 % (0-6); HEMATOCRIT 41.1 % (37.9-51.0); HEMOGLOBIN 13.9 g/dL (13.5-17.0); LYMPHOCYTES % (AUTO) 39.5 % (13-45); MEAN CORPUSCULAR HGB CONC 33.8 g/dL (32.0-36.0); MEAN CORPUSCULAR VOLUME 95 fl (80-97); MONOCYTES % (AUTO) 6.5 % (3-13); PLATELET COUNT 163 10^3/uL (150-450); RED BLOOD COUNT 4.34 10^6/uL (4.35-5.55); RED CELL DISTRIBUTION WIDTH 13.8 % (11.5-14.0); SEGMENTED NEUTROPHILS % (AUTO) 51.8 % (42-78); TOTAL CELLS COUNTED % (AUTO) 100 %; WHITE BLOOD COUNT 10.6 10^3/uL (4.0-10.5)
[2019-06-15 20:54] LABS: APPEARANCE,URINE CLOUDY; BILIRUBIN,URINE NEGATIVE (NEGATIVE); COLOR,URINE RED; GLUCOSE, URINE NEGATIVE (NEGATIVE); KETONES,URINE NEGATIVE (NEGATIVE); LEUKOCYTE ESTERASE,URINE SMALL (NEGATIVE); NITRITE,URINE NEGATIVE (NEGATIVE); PROTEIN,URINE 100 mg/dL (NEGATIVE); URINE SPECIFIC GRAVITY 1.003; UROBILINOGEN,URINE NEGATIVE mg/dL (<2.0)
[2019-06-15] MEDS ORDERED: NORMAL SALINE 1000 ML 1,000 ML IV ONE (21:05)
[2019-06-15 21:06] LABS: ALBUMIN 4.2 g/dL (3.5-5.0); ALKALINE PHOSPHATASE 57 U/L (38-126); ANION GAP 7 (5-19); ASPARTATE AMINO TRANSFERASE 22 U/L (17-59); BILIRUBIN,DIRECT 0.1 mg/dL (0.0-0.4); BILIRUBIN,TOTAL 0.6 mg/dL (0.2-1.3); BLOOD UREA NITROGEN 13 mg/dL (7-20); CALCIUM 9.6 mg/dL (8.4-10.2); CARBON DIOXIDE 26 mmol/L (22-30); CHLORIDE 108 mmol/L (98-107); GLUCOSE 99 mg/dL (75-110); POTASSIUM 3.9 mmol/L (3.6-5.0); TOTAL PROTEIN 6.9 g/dL (6.3-8.2)
[2019-06-15] MEDS ORDERED: TAMSULOSIN HCL 0.4 MG CAP.SR.24H PO ONE (21:08)
[2019-06-15] MEDS ORDERED: HYDROMORPHONE HCL INJ/PF 2 MG/ML AMPULE IV PRN (21:43)
[2019-06-15] MEDS ORDERED: HYDROMORPHONE HCL INJ/PF 2 MG/ML AMPULE IV ONE (21:44)
--- NOTE | 2019-06-15 22:26 | RADIOLOGY REPORT (SQ) ---
EXAM DESCRIPTION: CT ABDOMEN PELVIS WITHOUT IV CONTRAST COMPLETED DATE/TME: 06/15/2019 20:57 CLINICAL HISTORY: 38 years, Male, Flank pain COMPARISON: 12/12/2018 CT TECHNIQUE: 270 Images stored on PACS. All CT scanners at this facility use dose modulation, iterative reconstruction, and/or weight based dosing when appropriate to reduce radiation dose to as low as reasonably achievable (ALARA). [facility]: Dose Right [facility]: CareDose [facility]: Dose Right [facility]: Teradose 4D [facility]: [employer] LIMITATIONS: None. FINDINGS: The visualized lung bases are unremarkable. Osseous structures are grossly intact. The visualized liver, spleen, adrenal glands, pancreas are unremarkable. Punctate nonobstructing 1 to 2 mm left renal calculus. No obstructing calculus or hydronephrosis. The gallbladder is present, contracted. No gross evidence for bowel obstruction. Large amount of stool in the colon. Appendicoliths noted. The appendix is otherwise unremarkable. No free air or free fluid IMPRESSION: Punctate nonobstructing left renal calculus. Abundant stool in the colon TECHNICAL DOCUMENTATION: Quality ID # [id number]: Final reports with documentation of one or more dose reduction techniques (e.g., Automated exposure control, adjustment of the mA and/or kV according to patient size, use of iterative reconstruction technique) copyright 2010 [employer]- All Rights Reserved
--- NOTE | 2019-06-15 23:08 | ER Document Report ---
ED General - General Chief Complaint: Flank Pain Stated Complaint: BLOOD IN URINE Time Seen by Provider: 06/15/19 20:17 Primary Care Provider: NATACHA BAIG PA-C [ALLIED HEALTH PROFESSIONAL] - Follow up as needed TRAVEL OUTSIDE OF THE [place] IN LAST 30 DAYS: No - Related Data Allergies/Adverse Reactions: No Known Allergies Allergy (Verified 05/14/18 23:57) Past Medical History - General Information source: Patient - Social History Smoking Status: Current Every Day Smoker Drug Abuse: Marijuana Family History: Reviewed & Not Pertinent, CAD, DM, Hypertension, Malignancy, Other - Mother and brother have SVT long QT and he states have both had a heart attack and on pacemaker defibrillator Patient has suicidal ideation: No Patient has homicidal ideation: No Renal/ Medical History: Reports: Hx Kidney Stones. Denies: Hx Peritoneal Dialysis Skin Medical History: Reports Hx MRSA Past Surgical History: Reports: Hx Kidney (Renal Surgery) - lithotripsy x7, Other - lithotrypsy - Immunizations Immunizations up to date: Yes Hx Diphtheria, Pertussis, Tetanus Vaccination: No Physical Exam - Vital signs Vitals: Temp Pulse Resp BP Pulse Ox 98.1 F 71 16 126/77 H 100 06/15/19 20:00 06/15/19 20:00 06/15/19 20:00 06/15/19 20:00 06/15/19 20:00 - Notes Notes: Patient with a history of kidney stones presents emergency department complaining of left flank pain that has been on for the past 3 days rating around into the groin. Fairly constant increasing decreasing severity. He has some nausea but no vomiting no fevers. No dysuria but has had some hematuria. His pain is like his previous kidney stones. The stone was about 6 months ago. Denies any trauma falls or heavy lifting but no numbness or weakness in the legs no loss of bowel bladder function. Past medical history significant for multiple stones she says she has had multiple stents and lithotripsy. He does not have a urologist in the area says [place] he was last ED visit in November referred to urology in [place] and they told him the on-call physician was snf is not taking new patients and never gave him a follow-up appointment?? He also reports he had multiple kidney infections and UTIs Social history she does not smoke or drink at all. Review of systems pertinent positives and negatives in HPI otherwise all the systems were reviewed and acutely negative PHYSICIAN EXAM -vital signs are noted triage note and note from triage reviewed GENERAL: Well-appearing, well-nourished and in ___mild distress___ HEAD: Atraumatic, normocephalic. EYES: Pupils equal round and reactive to light, extraocular movements intact, sclera anicteric, conjunctiva are normal. ENT: nares patent, oropharynx clear without exudates. Moist mucous membranes. NECK: supple without lymphadenopathy LUNGS: Breath sounds clear to auscultation bilaterally and equal. No wheezes rales or rhonchi. HEART: Regular rate and rhythm without murmurs ABDOMEN: Soft, moderate tenderness in the left lower quadrant. However the pain appears out of proportion to his findings no pulsatile masses good femoral pulses EXTREMITIES: No deformity, no edema. NEUROLOGICAL: Alert and oriented x4. Motor strength is 5/5 in the lower extremities. Sensation intact light touch normal gait no pain with straight leg raise PSYCH: Normal mood, normal affect. SKIN: Warm, Dry, normal turgor, no rashes or lesions noted. BACK-nontender in the midline there is no CVA tenderness he does have some mild tenderness in the left paravertebral area some mild pain when he sits and turns Genitourinary-penis is without lesions or discharge. He is tender over both testicles. But again the pain appears out of proportion to the findings. When I palpated his right he says his left hurt tenderness is nontender. Uppercase any masses or swelling. He is got a normal lie first testicles and positive cr emasteric reflex Differential diagnoses include renal colic UTI back strain epididymitis ,there is history of previous kidney stones most likely represents a kidney stone so will obtain CT and if needed Doppler I have reviewed his old charts multiple ED visits here for various pain complaints here in November had a negative CT had 2 other CTs that were unremarkable as well as an ultrasound that was negative Course - Re-evaluation Re-evalutation: 06/16/19 01:11 ED patient is remained stable he was initially given ketorolac and Flomax with minimal relief. And given 1 dose of Dilaudid and is resting more comfortably. His abdominal pain has improved. After CT was obtained remarkable he was sent for ultrasound. Given a dose of IV antibiotics and urine culture sent Medical decision making patient presents with left flank pain is been going on for the past 3 days. Does have hematuria but is really no evidence of a stone on CT reviewing his old chart is been here multiple times before and had any improvement ureteral colic. He does seem to have evidence of UTI and some component of constipation which is probably contributing to his pain. As well is nontoxic not dehydrated this point think he be discharged home. His normal white count he has no evidence of pyelonephritis on CT urine pH is 7 so do not suspect Proteus patient was treated with cephalosporin to avoid complications associated with the fluoroquinolones Dictation was done using voice recognition software. There may be some grammatical errors which are unintentional I discussed results of laboratory findings and diagnostic test with patient/zairei ly. The treatment plan was explained and I reviewed the discharge instructions with them. Questions were answered. The patient/family verbalizes understanding 06/16/19 01:15 - Vital Signs Vital signs: Temp Pulse Resp BP Pulse Ox 97.6 F 64 18 125/68 97 06/15/19 23:24 06/15/19 23:24 06/15/19 23:24 06/15/19 23:24 06/15/19 23:24 - Laboratory Result Diagrams: 06/15/19 20:32 06/15/19 20:32 Laboratory results interpreted by me: 06/15/19 06/15/19 06/15/19 20:00 20:32 20:32 WBC 10.6 H RBC 4.34 L Chloride 108 H Urine Protein 100 H Urine Blood LARGE H Ur Leukocyte Esterase SMALL H 06/15/19 23:28 urine is noted and consistent with infection - Diagnostic Test Radiology reviewed: Reports reviewed Discharge - Discharge Clinical Impression: Constipation Abdominal pain Qualifiers: Abdominal location: left lower quadrant Qualified Code(s): R10.32 - Left lower quadrant pain Urinary tract infection Qualifiers: Urinary tract infection type: acute cystitis Condition: Good Disposition: HOME, SELF-CARE Instructions: Abdominal Pain ([facility]), Antinausea Medication ([facility]), Urinary Tract Infection ([facility]) Additional Instructions: Please review the discharge instructions, they will tell you about your disease/injury and what you need to return to the ED for Return to the ED if you feel worse or can follow-up with your family doctor Drink plenty of fluids Follow-up in the clinic in 2 to 3 days if not better otherwise in 2 weeks to recheck your urine Prescriptions: Ketorolac Tromethamine [Toradol 10 mg Tablet] 10 mg PO Q6HP PRN #15 tablet PRN Reason: Polyethylene Glycol 3350 [Miralax] 1 cap PO DAILY #527 powder Cefdinir [Omnicef 300 mg Capsule] 1 cap PO BID #14 capsule Ondansetron HCl [Zofran 4 mg Tablet] 1 tab PO Q4H PRN #10 tablet PRN Reason: Referrals: NATACHA BAIG PA-C [ALLIED HEALTH PROFESSIONAL] - Follow up as needed
[2019-06-15] MEDS ORDERED: CEFTRIAXONE INJ 1000 MG VIAL IV ONE (23:22)
[2019-06-16] MEDS ORDERED: ONDANSETRON HCL INJ/PF 4 MG/2 ML SDV IV ONE (00:01)
[2019-06-16] MEDS ORDERED: ONDANSETRON HCL INJ/PF 4 MG/2 ML SDV ONE (00:01)
--- NOTE | 2019-06-16 00:51 | RADIOLOGY REPORT (SQ) ---
EXAM DESCRIPTION: US SCROTUM COMPLETED DATE/TME: 06/15/2019 23:23 CLINICAL HISTORY: 38 years Male Testicular pain COMPARISON: None. TECHNIQUE: Real-time, best scale sonographic and duplex imaging performed to evaluate the testicles FINDINGS: Right testicle is normal in size and echogenicity. Normal blood flow to the right testicle. No evidence of intratesticular mass. Left testicle is normal in size and echogenicity. Normal blood flow to the left testicle. No evidence of intratesticular mass. Epididymides are unremarkable. IMPRESSION: Unremarkable scrotal ultrasound
[2019-06-16 01:55] VITALS: BP 125/60
== END 2019-06-16 01:52 | disposition home or self-care (01) ==
LOC: ER 19:49
DX: N30.01 Acute cystitis with hematuria (principal); K59.00 Constipation, unspecified; R10.32 Left lower quadrant pain; R10.814 Left lower quadrant abdominal tenderness; R10.9 Unspecified abdominal pain; R11.0 Nausea; F12.10 Cannabis abuse, uncomplicated; F17.200 Nicotine dependence, unspecified, uncomplicated; Z87.442 Personal history of urinary calculi
CPT/HCPCS: 36415; 87086; 85025; 80053; 81001; 76870; 93976; 74176; J1885; J1170; J3490; J0696; J2405 ×2; J7030; 87088; 96361; 96365; 96375; 96376; 99284

== ENCOUNTER 2019-06-17 08:32 | Emergency (ER) | payer MEDICAID ==
[2019-06-17] MEDS ORDERED: ONDANSETRON 4 MG TAB.RAPDIS PO ONE (09:16)
--- NOTE | 2019-06-17 09:17 | ER Document Report ---
ED Medical Screen (RME) - General Chief Complaint: Nausea/Vomiting Stated Complaint: VOMTING Time Seen by Provider: 06/17/19 09:13 Primary Care Provider: RADHA ADAMES PA-C [Primary Care Provider] - Follow up as needed TRAVEL OUTSIDE OF THE [place] IN LAST 30 DAYS: No - HPI Notes: 06/17/19 09:18 Patient is a 38-year-old male who presents complaining of continued left flank pain with nausea and vomiting over the past several days. He was here 2 days ago and had a relatively unremarkable CT scan and scrotal ultrasound aside from noting a left renal stone nonobstructing. Patient was placed on Cipro for possible urinary infection. No fever, chest pain, shortness of breath. I have treated and performed a rapid initial assessment of this patient. A comprehensive ED assessment and evaluation of the patient, analysis of test results and completion of medical decision making process will be conducted by additional ED providers. PHYSICAL EXAMINATION: GENERAL: no acute resp distress. Pt dry heaving in triage. - Related Data Allergies/Adverse Reactions: No Known Allergies Allergy (Verified 05/14/18 23:57) Past Medical History - Social History Chew tobacco use (# tins/day): No Frequency of alcohol use: None Drug Abuse: Marijuana Renal/ Medical History: Reports: Hx Kidney Stones. Denies: Hx Peritoneal Dialysis Skin Medical History: Reports Hx MRSA Past Surgical History: Reports: Hx Kidney (Renal Surgery) - lithotripsy x7, Other - lithotrypsy - Immunizations Immunizations up to date: Yes Hx Diphtheria, Pertussis, Tetanus Vaccination: No Physical Exam - Vital signs Vitals: Temp Pulse Resp Pulse Ox 97.9 F 68 20 99 06/17/19 08:39 06/17/19 08:39 06/17/19 08:39 06/17/19 08:39 Course - Vital Signs Vital signs: Temp Pulse Resp BP Pulse Ox 97.9 F 68 20 153/84 H 99 06/17/19 08:39 06/17/19 08:39 06/17/19 08:39 06/17/19 09:12 06/17/19 08:39 Doctor's Discharge - Discharge Referrals: RADHA ADAMES PA-C [Primary Care Provider] - Follow up as needed
[2019-06-17] MEDS ORDERED: KETOROLAC TROMETHAMINE INJ/PF 30 MG/1 ML SDV IV ONE (09:18)
[2019-06-17] MEDS: NORMAL SALINE 1000 ML 1,000 ML IV PRN ×2 (09:35→10:56)
[2019-06-17] MEDS ORDERED: PROMETHAZINE HCL INJ 25 MG/1 ML VIAL IM ONE (10:02)
[2019-06-17 10:15] LABS: ABSOLUTE EOSINOPHILS # (AUTO) 0.1 10^3/uL (0.0-0.6); ABSOLUTE LYMPHOCYTES (AUTO) 1.8 10^3/uL (0.5-4.7); ABSOLUTE MONOCYTES (AUTO) 0.6 10^3/uL (0.1-1.4); ABSOLUTE NEUT (AUTO) 10.2 10^3/uL (1.7-8.2); BASOPHILS % (AUTO) 0.3 % (0-2); EOSINOPHILS % (AUTO) 0.5 % (0-6); HEMATOCRIT 45.7 % (37.9-51.0); HEMOGLOBIN 15.6 g/dL (13.5-17.0); LYMPHOCYTES % (AUTO) 14.5 % (13-45); MEAN CORPUSCULAR HEMOGLOBIN 31.9 pg (27.0-33.4); MEAN CORPUSCULAR HGB CONC 34.2 g/dL (32.0-36.0); MEAN CORPUSCULAR VOLUME 93 fl (80-97); PLATELET COUNT 180 10^3/uL (150-450); RED CELL DISTRIBUTION WIDTH 13.9 % (11.5-14.0); SEGMENTED NEUTROPHILS % (AUTO) 79.7 % (42-78); TOTAL CELLS COUNTED % (AUTO) 100 %; WHITE BLOOD COUNT 12.8 10^3/uL (4.0-10.5)
[2019-06-17 10:26] LABS: ALBUMIN 4.7 g/dL (3.5-5.0); ALKALINE PHOSPHATASE 72 U/L (38-126); ANION GAP 10 (5-19); ASPARTATE AMINO TRANSFERASE 22 U/L (17-59); BILIRUBIN,DIRECT 0.2 mg/dL (0.0-0.4); BILIRUBIN,TOTAL 0.8 mg/dL (0.2-1.3); BLOOD UREA NITROGEN 14 mg/dL (7-20); CALCIUM 9.9 mg/dL (8.4-10.2); CARBON DIOXIDE 24 mmol/L (22-30); CHLORIDE 108 mmol/L (98-107); GLUCOSE 111 mg/dL (75-110); POTASSIUM 4.6 mmol/L (3.6-5.0); TOTAL PROTEIN 7.7 g/dL (6.3-8.2)
[2019-06-17 11:22] LABS: APPEARANCE,URINE SLIGHTLY-CLOUDY; BILIRUBIN,URINE NEGATIVE (NEGATIVE); COLOR,URINE YELLOW; GLUCOSE, URINE NEGATIVE (NEGATIVE); KETONES,URINE NEGATIVE (NEGATIVE); LEUKOCYTE ESTERASE,URINE TRACE (NEGATIVE); NITRITE,URINE POSITIVE (NEGATIVE); PROTEIN,URINE 30 mg/dL (NEGATIVE); URINE SPECIFIC GRAVITY 1.016; UROBILINOGEN,URINE NEGATIVE mg/dL (<2.0)
[2019-06-17] MEDS ORDERED: HALOPERIDOL LACTATE INJ 5 MG/1 ML VIAL IV ONE ×2 (11:30→12:01)
[2019-06-17] MEDS ORDERED: PANTOPRAZOLE SODIUM 40 MG VIAL IV ONE (12:01)
--- NOTE | 2019-06-17 12:31 | ER Document Report ---
ED General - General Chief Complaint: Nausea/Vomiting Stated Complaint: VOMTING Time Seen by Provider: 06/17/19 09:13 Primary Care Provider: NICOLE RAYMOND MD [NO LOCAL MD] - Follow up as needed RADHA ADAMES PA-C [Primary Care Provider] - Follow up as needed Mode of Arrival: Ambulatory Information source: Patient TRAVEL OUTSIDE OF THE [place] IN LAST 30 DAYS: No - HPI Notes: 38-year-old male presents to the emergency room for nausea vomiting and left flank pain for the last several days. Patient was seen in the emergency room couple days ago where he did have a CT scan and a scrotal scan which came back with a nonobstructing 1 to 2 mm stone in his left kidney, did show a UTI which she was placed on Ciprofloxacin to treat his UTI. Patient has not been followed up by a urologist waiting for an appointment pain a few weeks. Patient was evaluated in triage, labs were initiated there. CBC is negative for leukocytos is or anemia, CMP negative for hepatic or renal dysfunction, no electrolyte disturbances, urinalysis she is so that he did test positive for marijuana, patient was positive for nitrates and leuk esterase and his urinalysis, will obtain a culture. Patient was given a gram Rocephin IM for his UTI. There is a question of medication compliance for treating his UTI due to patient stating that he "does not like to take pills". Denies fevers, chills, chest pain,palpitations, shortness of breath, dyspnea, diarrhea, abdominal pain, hematuria,blurred vision, double vision, loss of vision, speech changes, LH, dizziness, syncope, headaches, wheezing, ST, URI, neck pain, weakness, bowel or bladder dysfunction, saddle anesthesia, numbness or tingling in bilateral upper or lower extremities equally, muscle paralysis, weakness in bilateral upper or lower extremities equally or rash - Related Data Allergies/Adverse Reactions: No Known Allergies Allergy (Verified 05/14/18 23:57) Past Medical History - General Information source: Patient - Social History Smoking Status: Current Every Day Smoker Chew tobacco use (# tins/day): No Frequency of alcohol use: None Drug Abuse: Marijuana Family History: Reviewed & Not Pertinent, CAD, DM, Hypertension, Malignancy, Other - Mother and brother have SVT long QT and he states have both had a heart attack and on pacemaker defibrillator Patient has suicidal ideation: No Patient has homicidal ideation: No Renal/ Medical History: Reports: Hx Kidney Stones. Denies: Hx Peritoneal Dialysis Skin Medical History: Reports Hx MRSA Past Surgical History: Reports: Hx Kidney (Renal Surgery) - lithotripsy x7, Other - lithotrypsy - Immunizations Immunizations up to date: Yes Hx Diphtheria, Pertussis, Tetanus Vaccination: No Review of Systems - Review of Systems Constitutional: No symptoms reported EENT: No symptoms reported Cardiovascular: No symptoms reported Respiratory: No symptoms reported Gastrointestinal: See HPI Genitourinary: See HPI Male Genitourinary: No symptoms reported Musculoskeletal: No symptoms reported Skin: No symptoms reported Hematologic/Lymphatic: No symptoms reported Neurological/Psychological: No symptoms reported Physical Exam - Vital signs Vitals: Temp Pulse Resp Pulse Ox 97.9 F 68 20 99 06/17/19 08:39 06/17/19 08:39 06/17/19 08:39 06/17/19 08:39 Interpretation: Normal - Notes Notes: PHYSICAL EXAMINATION:reviewed vital signs by RN GENERAL: Well-appearing, well-nourished and in no acute distress. HEAD: Atraumatic, normocephalic. EYES: Pupils equal round and reactive to light, extraocular movements intact, sclera anicteric, conjunctiva are normal. ENT: Nares patent, oropharynx clear without exudates. Moist mucous membranes. NECK: Normal range of motion, supple without lymphadenopathy LUNGS: Breath sounds clear to auscultation bilaterally and equal. No wheezes rales or rhonchi. HEART: Regular rate and rhythm without murmurs ABDOMEN: Soft, nontender, nondistended abdomen. No guarding, no rebound. No masses appreciated. Noted scant left CVA tenderness, no CVA tenderness on right. Musculoskeletal: Normal range of motion, no pitting or edema. No cyanosis. NEUROLOGICAL: Cranial nerves grossly intact. Normal speech, normal gait. Normal sensory, motor exams PSYCH: Normal mood, normal affect. SKIN: Warm, Dry, normal turgor, no rashes or lesions noted. Course - Re-evaluation Re-evalutation: 06/17/19 18:08 This patient was taken over from triage. Afebrile vitals stable and in slight distress due to vomiting. Will obtain a renal ultrasound to check for any obstructing stone. Patient given IV fluids, patient states he still having some nausea and will give him some Compazine IM. patient found to have a UTI, discussed with patient if he was taking his antibiotics, patient did not really acknowledge that this question, I asked "patient if he would like IV Rocephin to help treat his UTIs that he would, I discussed with patient he still would have to take his ciprofloxacin and will add Keflex to the regimen. Will culture urine. Discussed with patient that he needs to be on the cancellation list so h e can be seen by urologist, multiple names have been given for urologist for this patient to follow-up for, he states that he is unable to go due to insurance reasons although he does have an appointment coming up in a few weeks. Renal ultrasound that was performed today did show that he does have some small cysts on the left kidney no hydronephrosis there is a nonobstructing stone at the inferior pole of the left kidney, there is no solid or suspicious masses. No calcifications. There does show some pieces eco-genic kidneys suggestive of medical renal disease, this is why patient does need to follow-up with urologist. Patient is not in any acute kidney injury, is well hydrated today. will obtain chlamydia and gonorrhea tests for evaluation. 06/17/19 18:11 Oh - Vital Signs Vital signs: Temp Pulse Resp BP Pulse Ox 98.4 F 96 16 153/87 H 98 06/17/19 15:21 06/17/19 15:21 06/17/19 15:21 06/17/19 15:21 06/17/19 15:21 - Laboratory Result Diagrams: 06/17/19 09:44 06/17/19 09:44 Laboratory results interpreted by me: 06/17/19 06/17/19 06/17/19 09:44 09:44 10:51 WBC 12.8 H Absolute Neuts (auto) 10.2 H Seg Neutrophils % 79.7 H Chloride 108 H Glucose 111 H Urine Protein 30 H Urine Blood LARGE H Urine Nitrite POSITIVE H Ur Leukocyte Esterase TRACE H Discharge - Discharge Clinical Impression: Intractable vomiting, Nausea & vomiting, Urinary tract infection Condition: Stable Disposition: HOME, SELF-CARE Instructions: Antinausea Medication ([facility]), Intravenous (IV) Fluids ([facility]), Reglan ([facility]), Urinary Tract Infection ([facility]), Vomiting ([facility]) Additional Instructions: Urinary Tract Infection Your evaluation indicates that you have a urinary tract infection. This is due to germs growing in the bladder. This is a common problem. This infection usually responds quickly to antibiotics. Your antibiotic should be taken exactly as prescribed. Drink plenty of fluids -- three to four quarts a day. Occasionally, a bladder anesthetic will be prescribed to help stop the feeling of urgency until the antibiotic has a chance to clear the infection. This may cause your urine to be dark orange. Certain urine infections require a culture. If the doctor obtained a culture, the results will be back in two days. You should call to see if a change in treatment is needed. A repeat urinalysis after you finish treatment is often recommended. The physician will let you know if further testing is required. Call the doctor if you develop fever, chills, flank pain, inability to urinate, or blood in the urine. Vomiting Vomiting (or nausea without vomiting) can be caused by many other different problems. It can mean that something's wrong with the stomach, such as ulcers or inflammation or the intestinal tract, such as appendicitis. But it can also be a symptom of a problem that has nothing to do with the stomach or intestines. Vomiting is common with severe headaches, earaches, tonsillitis, and kidney infections, etc. We see it with pneumonia or heart attacks. Drugs can cause nausea and vomiting. Many abdominal problems cause vomiting; for example, gallstones, kidney stones, pancreatitis, and intestinal obstruction (blocked bowels). In most cases, curing the vomiting depends on fixing the problem that caused it. For temporary relief, we may use an anti-nausea medicine. For home use, we can prescribe suppositories, chewable pills, pills that dissolve in the mouth, or liquid anti-nausea drugs. If the vomiting seems to be caused by a problem in the stomach, acid-suppressing drugs may be prescribed as well. It's important to avoid dehydration. Sip small amounts of clear liquids (soft drinks, tea, broth, etc) . Try to take fluids frequently even if you are vomiting to prevent dehydration. Take increasing amounts of fluid and when liquids are being consumed successfully, advance to small amounts of bland food (toast, soups, mashed potatoes, etc.) until you are able to resume a regular diet. Avoid aspirin, tobacco, and alcohol. If the vomiting worsens, if the problem that's making you vomit worsens, or if there's evidence of bleeding in the stomach (such as black, tarry stool, or bloody or black vomit), you should return immediately. Also, return if abdominal pain worsens or becomes localized to one area or you develop high fever. Call your doctor if you aren't improved in 24 hours. Your urinalysis showed that you have a UTI. Your urine drug screen showed that you tested positive for marijuana, advised to not use marijuana as this can cause cyclic vomiting. Take antiemetics as needed. Follow-up with urologist as well as primary care provider. Return immediately for any new or worsening symptoms. Follow up with primary care provider, call tomorrow to make followup appointment. Prescriptions: Cephalexin Monohydrate [Keflex 500 mg Capsule] 500 mg PO BID #10 capsule Ondansetron [Zofran Odt 4 mg Tablet] 1 - 2 tab PO Q4H PRN #15 tab.rapdis PRN Reason: For Nausea/Vomiting Capsaicin [Zostrix 0.025% Cream 60 gm] 1 applic TP DAILYP PRN #1 tube PRN Reason: Referrals: RADHA ADAMES PA-C [Primary Care Provider] - Follow up as needed NICOLE RAYMOND MD [NO LOCAL MD] - Follow up as needed
[2019-06-17 12:49] LABS: URINE AMPHETAMINES SCREEN NEGATIVE; URINE BARBITURATES SCREEN NEGATIVE; URINE BENZODIAZEPINES SCREEN NEGATIVE; URINE COCAINE SCREEN NEGATIVE; URINE METHADONE SCREEN NEGATIVE; URINE PHENCYCLIDINE SCREEN NEGATIVE
[2019-06-17 12:58] LABS: URINE MARIJUANA (THC) SCREEN UNCONFIRMED POSITIVE
[2019-06-17] MEDS ORDERED: PROCHLORPERAZINE EDISYLATE INJ 10 MG/2 ML VIAL IM ONE (13:54)
[2019-06-17] MEDS ORDERED: METOCLOPRAMIDE HCL 10 MG TABLET PO ONE (13:54)
[2019-06-17] MEDS ORDERED: CEFTRIAXONE 1 GM/D5W RTU 1 GM/50 ML RTUPB IV ONE (14:13)
--- NOTE | 2019-06-17 14:28 | RADIOLOGY REPORT (SQ) ---
EXAM DESCRIPTION: U/S RETROPERITON (RENAL/AORTA) COMPLETED DATE/TIME: 06/17/2019 2:07 pm REASON FOR STUDY: L renal calculi from 06/15. ? obstruction COMPARISON: 06/15/2019 TECHNIQUE: Dynamic and static grayscale images acquired of the kidneys and bladder and recorded on P ACS. Additional selected color Doppler and spectral images recorded. LIMITATIONS: None. FINDINGS: RIGHT KIDNEY: The right kidney measures 9.9 cm in length. Echogenicity is increased. No solid or suspicious masses. No hydronephrosis. There is an approximate 1 cm upper pole cyst. No calcifications. LEFT KIDNEY: The left kidney measures 9.5 cm in length. Echogenicity is increased. No solid or s uspicious masses. No hydronephrosis. There are small cysts. There is a small echogenic focus in t he inferior pole consistent with nonobstructing stone as demonstrated on recent CT. There are small left renal cysts as well. BLADDER: No masses. OTHER FINDINGS: No other significant finding. IMPRESSION: 1. Echogenic kidneys suggestive of medical renal disease. 2. No hydronephrosis. Small nonobstructing stone in the inferior pole the left kidney. 3. Bilateral small renal cysts. TECHNICAL DOCUMENTATION: JOB ID: [id number] [employer]- All Rights Reserved Reading location - IP/workstation name: [email or web address]
[2019-06-17 15:22] VITALS: BP 153/87
== END 2019-06-17 15:20 | disposition home or self-care (01) ==
LOC: ER 08:32
DX: N39.0 Urinary tract infection, site not specified (principal); R11.2 Nausea with vomiting, unspecified; R10.9 Unspecified abdominal pain
CPT/HCPCS: 96376; 99284; 96372; 96361; 96375; 96365; 36415; 87086; 83690; 85025; 80053; 81001; 80307; 76770; S0119; J1630; J1885; J3490; C9113; J0780; J2550; J7030; J0696

== ENCOUNTER 2019-10-22 00:50 | Emergency (ER) | payer MEDICAID ==
[2019-10-22 01:24] LABS: APPEARANCE,URINE CLOUDY; BILIRUBIN,URINE NEGATIVE (NEGATIVE); COLOR,URINE AMBER; GLUCOSE, URINE NEGATIVE (NEGATIVE); KETONES,URINE NEGATIVE (NEGATIVE); LEUKOCYTE ESTERASE,URINE SMALL (NEGATIVE); NITRITE,URINE NEGATIVE (NEGATIVE); PROTEIN,URINE 100 mg/dL (NEGATIVE); URINE SPECIFIC GRAVITY 1.023; UROBILINOGEN,URINE NEGATIVE mg/dL (<2.0)
[2019-10-22 02:22] LABS: ABSOLUTE BASOPHILS # (AUTO) 0.1 10^3/uL (0.0-0.2); ABSOLUTE EOSINOPHILS # (AUTO) 0.1 10^3/uL (0.0-0.6); ABSOLUTE LYMPHOCYTES (AUTO) 3.2 10^3/uL (0.5-4.7); ABSOLUTE MONOCYTES (AUTO) 1.2 10^3/uL (0.1-1.4); ABSOLUTE NEUT (AUTO) 8.1 10^3/uL (1.7-8.2); BASOPHILS % (AUTO) 0.5 % (0-2); EOSINOPHILS % (AUTO) 0.9 % (0-6); HEMATOCRIT 48.8 % (37.9-51.0); HEMOGLOBIN 17.1 g/dL (13.5-17.0); LYMPHOCYTES % (AUTO) 25.3 % (13-45); MEAN CORPUSCULAR HEMOGLOBIN 32.3 pg (27.0-33.4); MEAN CORPUSCULAR VOLUME 93 fl (80-97); MONOCYTES % (AUTO) 9.3 % (3-13); PLATELET COUNT 149 10^3/uL (150-450); RED BLOOD COUNT 5.28 10^6/uL (4.35-5.55); RED CELL DISTRIBUTION WIDTH 13.5 % (11.5-14.0); TOTAL CELLS COUNTED % (AUTO) 100 %; WHITE BLOOD COUNT 12.6 10^3/uL (4.0-10.5)
[2019-10-22 02:43] LABS: ALKALINE PHOSPHATASE 71 U/L (38-126); ANION GAP 8 (5-19); ASPARTATE AMINO TRANSFERASE 26 U/L (17-59); BILIRUBIN,TOTAL 1.3 mg/dL (0.2-1.3); BLOOD UREA NITROGEN 23 mg/dL (7-20); CALCIUM 10.5 mg/dL (8.4-10.2); CARBON DIOXIDE 27 mmol/L (22-30); CHLORIDE 104 mmol/L (98-107); GLUCOSE 121 mg/dL (75-110); POTASSIUM 4.5 mmol/L (3.6-5.0); TOTAL PROTEIN 8.2 g/dL (6.3-8.2)
[2019-10-22] MEDS ORDERED: NORMAL SALINE 1000 ML 1,000 ML IV ONE (02:54)
[2019-10-22] MEDS ORDERED: KETOROLAC TROMETHAMINE INJ/PF 30 MG/1 ML SDV IV ONE (02:55)
[2019-10-22] MEDS ORDERED: OXYCODONE-ACETAMINOPHEN 5-325 MG TABLET PO ONE ×2 (02:55→04:40)
[2019-10-22] MEDS ORDERED: ONDANSETRON HCL INJ/PF 4 MG/2 ML SDV IV ONE ×2 (02:55→05:13)
--- NOTE | 2019-10-22 04:19 | ER Document Report ---
ED General - General Chief Complaint: Urinary Problem Stated Complaint: VOMITING,ABDOMINAL PAIN,BLOOD IN URINE Time Seen by Provider: 10/22/19 01:45 Primary Care Provider: RADHA ADAMES PA-C [Primary Care Provider] - Follow up as needed Notes: 39-year-old male history of numerous episodes of nephrolithiasis previously requiring 7 times lithotripsy as per patient no procedures in the past 2 years presents with 2 days gradual onset constant waxing waning left flank pain radiating to groin without aggravating or alleviating factors consistent with prior renal colic. Now patient says that left flank pain is minimal and mostly feels pain suprapubically consistent with stone passing into the bladder. Patient endorses subjective fever chills, foul-smelling urine. Last antipyretic approximately 8 hours prior to arrival. Patient says numerous episodes of nausea vomiting. Patient denies penile discharge rash lesions diarrhea constipation immune compromise, recent antibiotics, recent procedures, other GI history, alcohol use, gallbladder history. TRAVEL OUTSIDE OF THE [place] IN LAST 30 DAYS: No - Related Data Allergies/Adverse Reactions: No Known Allergies Allergy (Verified 05/14/18 23:57) Past Medical History - Social History Smoking Status: Current Every Day Smoker Chew tobacco use (# tins/day): No Frequency of alcohol use: None Drug Abuse: None Family History: Reviewed & Not Pertinent, CAD, DM, Hypertension, Malignancy, Other - Mother and brother have SVT long QT and he states have both had a heart attack and on pacemaker defibrillator Patient has suicidal ideation: No Patient has homicidal ideation: No - Past Medical History Cardiac Medical History: Reports: None Renal/ Medical History: Reports: Hx Kidney Stones. Denies: Hx Peritoneal Dialysis Skin Medical History: Reports Hx MRSA Past Surgical History: Reports: None, Hx Kidney (Renal Surgery) - lithotripsy x7, Other - lithotrypsy - Immunizations Immunizations up to date: Yes Hx Diphtheria, Pertussis, Tetanus Vaccination: No Review of Systems - Review of Systems Notes: REVIEW OF SYSTEMS: CONSTITUTIONAL : endorses subjective fever, chills EENT: Denies recent cold/sinus symptoms, denies throat pain CARDIOVASCULAR: Denies chest pain, ELISABET RESPIRATORY: Denies cough, denies shortness of breath. GASTROINTESTINAL: Denies abdominal pain, nausea/vomiting. GENITOURINARY: Denies difficulty urinating, endorses frequency MUSCULOSKELETAL: Denies neck pain, back pain. SKIN: Denies rash or skin lesions. HEMATOLOGIC : Denies easy bruising or bleeding. LYMPHATIC: Denies swollen, enlarged glands. NEUROLOGICAL: Denies headache, denies change in gait. PSYCHIATRIC: Denies anxiety or stress or depression. Physical Exam - Vital signs Vitals: Temp Pulse Resp BP Pulse Ox 98.5 F 72 16 127/83 H 96 10/22/19 00:51 10/22/19 00:51 10/22/19 00:51 10/22/19 00:51 10/22/19 00:51 - Notes Notes: PHYSICAL EXAMINATION: GENERAL: Well-appearing, well-nourished and in no acute distress. HEAD: Atraumatic, normocephalic. EYES: Pupils equal round and appropriate constriction, sclera anicteric, conjunctiva are normal. ENT: nares patent, moist mucous membranes. NECK: Normal range of motion, supple without lymphadenopathy LUNGS: Breath sounds clear to auscultation bilaterally and equal. No wheezes rales or rhonchi. HEART: Regular rate and rhythm without murmurs ABDOMEN: Soft, nontender, no guarding, no masses, +left CVAT EXTREMITIES: Normal range of motion, no pitting or edema. No cyanosis. NEUROLOGICAL: Awake, alert, conversing appropriately, moves all extremities spontaneously. PSYCH: Normal mood, normal affect. SKIN: Warm, Dry, normal turgor, no rashes or lesions noted. Course - Re-evaluation Re-evalutation: 10/22/19 04:19 Patient very well-appearing and benign exam. Vital signs normal, exam normal other than left CVA tenderness. History not concerning for atypical presentation of aortic dissection/aneurysm given known history with copious documentation of kidney stones and absence of risk factors other than smoking and absence of physical exam findings concerning for such. History concerning for possible complicated Charles with obstructing stone but given that left flank pain has significantly improved and now located in groin and ultrasound performed by ED physician showed no hydronephrosis on either side, presentation consistent with renal colic with passed stone possibly with superimposed pyelonephritis but not complicated given stone has passed and no need for source control as stone has passed. Will discharge on antibiotics with close PCP and urology follow-up. Patient tolerating p.o. after Zofran and pain control in the ED. Patient appropriate for outpatient follow-up, discussed plan with patient at length and he was in agreement, denied having any other concerns at time of reevaluation. 10/22/19 04:20 10/22/19 06:07 Ptient began to feel nauseous again prior to ED discharge so additional dose of Zofran was administered. Regardless, patient continued to tolerate p.o., passed p.o. trial prior to discharge. - Vital Signs Vital signs: Temp Pulse Resp BP Pulse Ox 98.8 F 55 L 20 172/83 H 98 10/22/19 05:21 10/22/19 05:22 10/22/19 05:22 10/22/19 05:21 10/22/19 05:21 - Laboratory Result Diagrams: 10/22/19 02:14 10/22/19 02:14 Laboratory results interpreted by me: 10/22/19 10/22/19 10/22/19 01:05 02:14 02:14 WBC 12.6 H Hgb 17.1 H Plt Count 149 L BUN 23 H Glucose 121 H Calcium 10.5 H Lipase 792.9 H Urine Protein 100 H Urine Blood LARGE H Ur Leukocyte Esterase SMALL H Procedures - Ultrasound/Bedside Ultrasound/Bedside Time completed: 03:40 Ultrasound: Normal Discharge - Discharge Clinical Impression: Renal colic on left side, Pyelonephritis Condition: Good Disposition: HOME, SELF-CARE Additional Instructions: Pyelonephritis Your evaluation shows evidence of pyelonephritis. This is an infection in the kidney. Typical symptoms are fever, pain in the flank, pain on urination, and frequent urination. Many cases of pyelonephritis can be treated at home. Hospital care may be necessary for patients who are very ill, or elderly or . Pyelonephritis is treated with antibiotics. Be sure to take all the medication as prescribed. Drink plenty of liquids (about three quarts per day). You may take acetaminophen for fever. You should feel significantly improved within two days. You should have a recheck of your urine in about one week to insure that the infection is gone. Return for a re-examination if your symptoms worsen in any way -- such as high fever, shaking chills, severe weakness or dizziness, severe pain, or inability to pass your urine. Kidney Stone You are passing or have passed a kidney stone. These stones are usually due to increased calcium or uric acid concentrations in your urine. Stones within the kidney itself are not painful. The pain occurs as the stone leaves the kidney to pass down the long tube, called the ureter, leading to the bladder. If the stone is small, it will usually pass by itself. Most patients can pass the stone at home. You will usually receive medications for pain, nausea or vomiting, and sometimes a medication to assist in passing the kidney stone. However, if the pain is very severe or if vomiting prevents you from taking oral pain medications, you may need to return for further treatment. Drink three or four quarts of fluids per day. You will be given pain med ication (if needed) and urine strainers. Strain all your urine to see if the stone passes. If your doctor has asked you to bring the stone in for analysis, return with the stone once it has passed. Return if pain or vomiting become severe, if you develop a high fever, if you are unable to pass your urine, or if other unusual symptoms occur. Prescriptions: Ondansetron [Zofran Odt 4 mg Tablet] 4 mg PO Q4HP PRN #6 tab.rapdis PRN Reason: Tramadol HCl [Ultram 50 mg Tablet] 50 mg PO Q6HP PRN #4 tab PRN Reason: Phenazopyridine HCl [Pyridium 100 Mg Tablet] 100 mg PO TID #6 tablet Cefpodoxime Proxetil [Vantin 200 mg Tablet] 200 mg PO BID #28 tablet Referrals: RADHA ADAMES PA-C [Primary Care Provider] - Follow up as needed
[2019-10-22] MEDS ORDERED: CEFTRIAXONE 1 GM/D5W RTU 1 GM/50 ML RTUPB IV ONE (04:30)
[2019-10-22 05:23] VITALS: BP 172/83
== END 2019-10-22 05:31 | disposition home or self-care (01) ==
LOC: ER 00:50
DX: N12 Tubulo-interstitial nephritis, not specified as acute or chronic (principal); N23 Unspecified renal colic; R11.0 Nausea; F17.200 Nicotine dependence, unspecified, uncomplicated; Z87.442 Personal history of urinary calculi; Z86.14 Personal history of Methicillin resistant Staphylococcus aureus infection
CPT/HCPCS: 99284; 96361; 96375; 96365; 36415; 87086; 83690; 85025; 80053; 81001; J1885; J2405; J7030; J0696

== ENCOUNTER 2019-10-22 16:16 | Emergency (ER) | payer MEDICAID ==
[2019-10-22] MEDS ORDERED: KETOROLAC TROMETHAMINE INJ/PF 30 MG/1 ML SDV IV ONE (16:32)
[2019-10-22] MEDS ORDERED: METOCLOPRAMIDE HCL INJ/PF 10 MG/2 ML SDV IV ONE (16:33)
[2019-10-22] MEDS ORDERED: NORMAL SALINE 1000 ML 1,000 ML IV ONE (16:33)
--- NOTE | 2019-10-22 16:35 | ER Document Report ---
ED Medical Screen (RME) - General Chief Complaint: Abdominal Pain Stated Complaint: VOMITING Time Seen by Provider: 10/22/19 16:25 Primary Care Provider: RADHA ADAMES PA-C [Primary Care Provider] - Follow up as needed Mode of Arrival: Wheelchair Information source: Patient Notes: 39-year-old male patient presents the emergency department chief complaint of persistent vomiting. Patient reports he was seen in this emergency department last night and diagnosed with pyelonephritis. Patient reports his pain to the left flank area has significantly increased and he states that he is vomiting despite taking all medications. Left CVA tenderness. I have greeted and performed a rapid initial assessment of this patient. A comprehensive ED assessment and evaluation of the patient, analysis of test results and completion of the medical decision making process will be conducted by additional ED providers. I have specifically instructed the patient or family members with the patient to immediately return to any nursing staff should anything change in the patient's condition or with their chief complaint. TRAVEL OUTSIDE OF THE [place] IN LAST 30 DAYS: No - Related Data Allergies/Adverse Reactions: No Known Allergies Allergy (Verified 05/14/18 23:57) Past Medical History - Social History Frequency of alcohol use: None Drug Abuse: None Renal/ Medical History: Reports: Hx Kidney Stones. Denies: Hx Peritoneal Dialysis Skin Medical History: Reports Hx MRSA Past Surgical History: Reports: Hx Kidney (Renal Surgery) - lithotripsy x7, Other - lithotrypsy - Immunizations Immunizations up to date: Yes Hx Diphtheria, Pertussis, Tetanus Vaccination: No Physical Exam - Vital signs Vitals: Temp Pulse Resp BP Pulse Ox 99.1 F 66 16 120/76 97 10/22/19 16:22 10/22/19 16:22 10/22/19 16:22 10/22/19 16:22 10/22/19 16:22 Course - Vital Signs Vital signs: Temp Pulse Resp BP Pulse Ox 99.1 F 66 16 120/76 97 10/22/19 16:22 10/22/19 16:22 10/22/19 16:22 10/22/19 16:22 10/22/19 16:22 Doctor's Discharge - Discharge Referrals: RADHA ADAMES PA-C [Primary Care Provider] - Follow up as needed
[2019-10-22 17:50] LABS: ABSOLUTE BASOPHILS # (AUTO) 0.1 10^3/uL (0.0-0.2); ABSOLUTE LYMPHOCYTES (AUTO) 2.4 10^3/uL (0.5-4.7); ABSOLUTE MONOCYTES (AUTO) 0.9 10^3/uL (0.1-1.4); ABSOLUTE NEUT (AUTO) 7.8 10^3/uL (1.7-8.2); BASOPHILS % (AUTO) 0.5 % (0-2); EOSINOPHILS % (AUTO) 0.3 % (0-6); LYMPHOCYTES % (AUTO) 21.5 % (13-45); MEAN CORPUSCULAR HEMOGLOBIN 32.3 pg (27.0-33.4); MEAN CORPUSCULAR HGB CONC 34.8 g/dL (32.0-36.0); MEAN CORPUSCULAR VOLUME 93 fl (80-97); MONOCYTES % (AUTO) 7.7 % (3-13); PLATELET COUNT 113 10^3/uL (150-450); RED BLOOD COUNT 4.63 10^6/uL (4.35-5.55); RED CELL DISTRIBUTION WIDTH 13.5 % (11.5-14.0); TOTAL CELLS COUNTED % (AUTO) 100 %; WHITE BLOOD COUNT 11.1 10^3/uL (4.0-10.5)
[2019-10-22 17:53] LABS: APPEARANCE,URINE SLIGHTLY-CLOUDY; BILIRUBIN,URINE NEGATIVE (NEGATIVE); COLOR,URINE YELLOW; GLUCOSE, URINE NEGATIVE (NEGATIVE); HEMOGLOBIN 14.9 g/dL (13.5-17.0); KETONES,URINE TRACE mg/dL (NEGATIVE); LEUKOCYTE ESTERASE,URINE NEGATIVE (NEGATIVE); NITRITE,URINE NEGATIVE (NEGATIVE); PROTEIN,URINE NEGATIVE (NEGATIVE); URINE SPECIFIC GRAVITY 1.021; UROBILINOGEN,URINE NEGATIVE mg/dL (<2.0)
[2019-10-22 18:05] LABS: ALBUMIN 4.6 g/dL (3.5-5.0); ALKALINE PHOSPHATASE 51 U/L (38-126); ANION GAP 10 (5-19); ASPARTATE AMINO TRANSFERASE 21 U/L (17-59); BILIRUBIN,TOTAL 0.9 mg/dL (0.2-1.3); BLOOD UREA NITROGEN 23 mg/dL (7-20); CALCIUM 9.6 mg/dL (8.4-10.2); CARBON DIOXIDE 26 mmol/L (22-30); CHLORIDE 102 mmol/L (98-107); GLUCOSE 116 mg/dL (75-110); POTASSIUM 4.1 mmol/L (3.6-5.0); TOTAL PROTEIN 7.3 g/dL (6.3-8.2)
[2019-10-22] MEDS ORDERED: MORPHINE SULFATE 10 MG/ML INJ IV PRN (19:16)
[2019-10-22 19:42] VITALS: BP 132/68
--- NOTE | 2019-10-22 20:11 | RADIOLOGY REPORT (SQ) ---
EXAM DESCRIPTION: CTA ABDOMEN/PELVIS W WO IMAGES COMPLETED DATE/TIME: 10/22/2019 7:38 pm REASON FOR STUDY: CT ANGIOGRAM r/o renal artery dissection COMPARISON: 06/15/2019 TECHNIQUE: CT scan of the abdominal aorta extending to the iliac bifurcation performed with intraven ous contrast using helical scanning technique with dynamic intravenous contrast injection. There is oral contrast in the left colon. Images reviewed with lung, soft tissue, and bone windows. Reconstru cted coronal and sagittal MPR images reviewed. All images stored on PACS. Advanced 3D imaging as volume rendering, MIPS, SSD performed? No All CT scanners at this facility use dose modulation, iterative reconstruction, and/or weight based d osing when appropriate to reduce radiation dose to as low as reasonably achievable (ALARA). [facility]: Dose Right [facility]: CareDose [facility]: Dose Right [facility]: Teradose 4D [facility]: Seafarers CV CONTRAST TYPE AND DOSE: contrast/concentration: Isovue 350.00 mg/ml; Total Contrast Delivered: 100.0 ml; Total Saline Delivered: 90.0 ml RENAL FUNCTION: BUN 23 creatinine 0.99 LIMITATIONS: None. FINDINGS: AORTA AND VESSELS: No aneurysm. No dissection. Renal arteries, SMA, celiac without stenosi s. There is no renal artery dissection. LUNG BASES: No significant findings. No nodules or infiltrates. LIVER: Normal size. No masses or dilated ducts. SPLEEN: Normal size. No focal lesions. PANCREAS: No masses. No significant calcifications. No adjacent inflammation or peripancreatic fluid collections. Pancreatic duct not dilated. GALLBLADDER: No identified stones by CT criteria. No inflammatory changes to suggest cholecystitis. ADRENAL GLANDS: No significant masses or asymmetry. RIGHT KIDNEY AND URETER: No mass, calculi or urinary tract obstruction. LEFT KIDNEY AND URETER: No mass, calculi or urinary tract obstruction. RETROPERITONEUM: No retroperitoneal adenopathy, hemorrhage or masses. BOWEL AND PERITONEAL CAVITY: No masses or inflammatory changes. No free fluid or peritoneal masses. APPENDIX: Not identified. ABDOMINAL WALL: No masses. No hernias. BONY STRUCTURES: No significant or acute findings. 3-D IMAGING: Confirms the above findings. OTHER: No other significant finding. IMPRESSION: There is no aortic aneurysm or dissection. There is no renal artery dissection. No sig nificant vascular abnormality is seen. No other significant finding is present in the abdomen or pel vis. TECHNICAL DOCUMENTATION: JOB ID: [id number] Quality ID # [id number]: Final reports with documentation of one or more dose reduction techniques (e.g., Au tomated exposure control, adjustment of the mA and/or kV according to patient size, use of iterative reconstruction technique) 2010 [employer]- All Rights Reserved Reading location - IP/workstation name: [email or web address]
--- NOTE | 2019-10-22 21:07 | ER Document Report ---
ED General - General Chief Complaint: Abdominal Pain Stated Complaint: VOMITING Time Seen by Provider: 10/22/19 16:25 Primary Care Provider: RADHA ADAMES PA-C [Primary Care Provider] - Follow up as needed Mode of Arrival: Wheelchair TRAVEL OUTSIDE OF THE [place] IN LAST 30 DAYS: No - HPI Notes: 39-year-old male history of nephrolithiasis requiring multiple lithotripsies, smoking presents with persistent nausea vomiting after ED discharge ~12 hours p rior. Patient seen by myself in ED then and had 2 days of left flank pain and nausea vomiting during which time he had an ultrasound showing no nephrosis bilaterally and had borderline leukocytosis and equivocal urinalysis and was treated for uncomplicated pyelonephritis. Patient states that he has had continued nausea vomiting and has not been able to tolerate p.o. meds. Patient states that flank pain has persisted also. Patient continues to endorse subjective fever chills. Denies dizziness, syncope, change in initial pain, change in urinary symptoms. - Related Data Allergies/Adverse Reactions: No Known Allergies Allergy (Verified 05/14/18 23:57) Past Medical History - General Information source: Patient - Social History Smoking Status: Current Every Day Smoker Frequency of alcohol use: None Drug Abuse: None Family History: Reviewed & Not Pertinent, CAD, DM, Hypertension, Malignancy, Other - Mother and brother have SVT long QT and he states have both had a heart attack and on pacemaker defibrillator Patient has suicidal ideation: No Patient has homicidal ideation: No Renal/ Medical History: Reports: Hx Kidney Stones. Denies: Hx Peritoneal Dialysis Skin Medical History: Reports Hx MRSA Past Surgical History: Reports: Hx Kidney (Renal Surgery) - lithotripsy x7, Other - lithotrypsy - Immunizations Immunizations up to date: Yes Hx Diphtheria, Pertussis, Tetanus Vaccination: No Review of Systems - Review of Systems Notes: REVIEW OF SYSTEMS: CONSTITUTIONAL : +fever, +chills EENT: Denies recent cold/sinus symptoms, denies throat pain CARDIOVASCULAR: Denies chest pain, ELISABET RESPIRATORY: Denies cough, denies shortness of breath. GASTROINTESTINAL: Denies diarrhea/constipation, nausea/vomiting. GENITOURINARY: Denies difficulty urinating, painful urination. MUSCULOSKELETAL: Denies neck pain, back pain. SKIN: Denies rash or skin lesions. HEMATOLOGIC : Denies easy bruising or bleeding. LYMPHATIC: Denies swollen, enlarged glands. NEUROLOGICAL: Denies headache, denies change in gait. PSYCHIATRIC: Denies anxiety or stress or depression. Physical Exam - Vital signs Vitals: Temp Pulse Resp BP Pulse Ox 99.1 F 66 16 120/76 97 10/22/19 16:22 10/22/19 16:22 10/22/19 16:22 10/22/19 16:22 10/22/19 16:22 - Notes Notes: PHYSICAL EXAMINATION: GENERAL: Well-appearing, well-nourished and in no acute distress. HEAD: Atraumatic, normocephalic. EYES: Pupils equal round and appropriate constriction, sclera anicteric, conjunctiva are normal. ENT: nares patent, moist mucous membranes. NECK: Normal range of motion, supple without lymphadenopathy LUNGS: Breath sounds clear to auscultation bilaterally and equal. No wheezes rales or rhonchi. HEART: Regular rate and rhythm without murmurs ABDOMEN: Soft, nontender, no guarding, no masses, +left CVAT EXTREMITIES: Normal range of motion, no pitting or edema. No cyanosis. NEUROLOGICAL: Awake, alert, conversing appropriately, moves all extremities spontaneously. PSYCH: Normal mood, normal affect. SKIN: Warm, Dry, normal turgor, no rashes or lesions noted. Course - Re-evaluation Re-evalutation: 10/22/19 20:00 Given patient's repeat presentation and smoking history and equivocal UA obtain CTA rule out renal artery dissection atypical presentation which was negative. I offered to admit patient to observation for IV hydration and IV antibiotics given persistent vomiting, but patient refused. Given patient's persistently normal vital signs, moist mucosa, no signs of electrolyte abnormalities, he is clinically showing no signs of dehydration and attempting additional outpatient management is still appropriate. Discharge patient with antiemetic along with antibiotics and gave extensive return precautions that if he should continue vomiting he needs to return immediately to ED which she demonstrated understanding of. Previous mild elevation in lipase did not correlate with patient's symptoms and patient was instructed to follow-up outpatient regarding this value. Repeat lipase lowered to nearly normal range. Reminded patient of need to follow this finding up outpatient which she agreed to. - Vital Signs Vital signs: Temp Pulse Resp BP Pulse Ox 99.1 F 66 15 132/68 H 99 10/22/19 16:22 10/22/19 16:22 10/22/19 19:01 10/22/19 19:01 10/22/19 19:01 - Laboratory Result Diagrams: 10/22/19 17:14 10/22/19 17:14 Laboratory results interpreted by me: 10/22/19 10/22/19 10/22/19 17:14 17:14 17:14 WBC 11.1 H Plt Count 113 L BUN 23 H Glucose 116 H Lipase 305.3 H Urine Ketones TRACE H Discharge - Discharge Clinical Impression: Vomiting Qualifiers: Vomiting type: unspecified Vomiting Intractability: non-intractable Nausea presence: with nausea Qualified Code(s): R11.2 - Nausea with vomiting, unspecified Condition: Good Disposition: HOME, SELF-CARE Instructions: Abdominal Pain ([facility]), Antinausea Medication ([facility]) Additional Instructions: Vomiting Vomiting can be part of many illnesses. Most cases of vomiting are due to gastroenteritis, usually a viral infection in the intestinal tract. There is no specific treatment. The disease will end by itself. For now, the main danger to your child is dehydration. During the first few hours of the illness, give clear liquids, such as Pedialyte. Try to give small quantities frequently, such as a teaspoon of liquid every minute or about an ounce of fluids every five to ten minutes. Medications may be prescribed by the physician for special cases. After an hour or two of fluids without vomiting, add rice cereal, toast, applesauce, or bananas and other more solid foods to the clear liquids. Call the physician or go to the hospital if vomiting increases or blood appears in the bowel movement or vomitus; if your child fails to improve, or if signs of dehydration occur (no wet diapers for eight to twelve hours, tongue and mouth become dry, not acting as alert as usual). If your vomiting continues and you are unable to keep down liquids or if you have any other worsening or alarming symptoms including dizziness, fainting, confusion, fever please return to the ED immediately. Follow-up with your primary doctor within 1 week. Prescriptions: Capsaicin 42.5 gm TP BID PRN #45 cream..g. PRN Reason: Metoclopramide HCl [Reglan 10 mg Tablet] 10 mg PO TID PRN #5 tablet PRN Reason: Referrals: RADHA ADAMES PA-C [Primary Care Provider] - Follow up as needed
== END 2019-10-22 21:52 | disposition home or self-care (01) ==
LOC: ER 16:16
DX: R11.10 Vomiting, unspecified (principal); R10.9 Unspecified abdominal pain; Z87.442 Personal history of urinary calculi; Z86.14 Personal history of Methicillin resistant Staphylococcus aureus infection
CPT/HCPCS: 99284; 96361; 96374; 96375; 36415; 83690; 87070; 81001; 74174; J1885; J2765; J2270; J7030

== ENCOUNTER 2019-11-06 17:46 | Emergency (ER) | payer MEDICAID ==
[2019-11-06 17:58] VITALS: BP 131/83
--- NOTE | 2019-11-06 18:05 | ER Document Report ---
ED Medical Screen (RME) - General Chief Complaint: Flank Pain Stated Complaint: LEFT FLANK PAIN,BLOOD IN URINE Time Seen by Provider: 11/06/19 18:01 Primary Care Provider: RADHA ADAMES PA-C [Primary Care Provider] - Follow up as needed Mode of Arrival: Ambulatory Information source: Patient Notes: 39-year-old male presented to ED for complaint of left flank and groin pain. He states this morning he was having left flank pain with blood in his urine and it is progressed to having left groin and abdominal pain. He states he has had multiple kidney stones with 8 lithotripsies. He states he was seen 3 weeks ago for blood in his urine. Patient is alert oriented respirations regular nonlabored. He is guarding his left lower abdomen. I have greeted and performed a rapid initial assessment of this patient. A comprehensive ED assessment and evaluation of the patient, analysis of test results and completion of medical decision making process will be conducted by an additional ED providers. TRAVEL OUTSIDE OF THE [place] IN LAST 30 DAYS: No - Related Data Allergies/Adverse Reactions: No Known Allergies Allergy (Verified 05/14/18 23:57) Past Medical History Renal/ Medical History: Reports: Hx Kidney Stones. Denies: Hx Peritoneal Dialysis Skin Medical History: Reports Hx MRSA Past Surgical History: Reports: Hx Kidney (Renal Surgery) - lithotripsy x7, Other - lithotrypsy - Immunizations Immunizations up to date: Yes Hx Diphtheria, Pertussis, Tetanus Vaccination: No Physical Exam - Vital signs Vitals: Temp Pulse Resp BP Pulse Ox 98.1 F 66 16 131/83 H 98 11/06/19 17:54 11/06/19 17:54 11/06/19 17:54 11/06/19 17:54 11/06/19 17:54 Course - Vital Signs Vital signs: Temp Pulse Resp BP Pulse Ox 98.1 F 66 16 131/83 H 98 11/06/19 17:54 11/06/19 17:54 11/06/19 17:54 11/06/19 17:54 11/06/19 17:54 Doctor's Discharge - Discharge Referrals: RADHA ADAMES PA-C [Primary Care Provider] - Follow up as needed
[2019-11-06] MEDS ORDERED: NORMAL SALINE 1000 ML 1,000 ML IV ONE (18:06)
[2019-11-06] MEDS ORDERED: ONDANSETRON 4 MG TAB.RAPDIS PO ONE (18:06)
[2019-11-06] MEDS ORDERED: KETOROLAC TROMETHAMINE INJ/PF 30 MG/1 ML SDV IV ONE (18:07)
[2019-11-06 18:29] LABS: ABSOLUTE EOSINOPHILS # (AUTO) 0.1 10^3/uL (0.0-0.6); ABSOLUTE LYMPHOCYTES (AUTO) 2.9 10^3/uL (0.5-4.7); ABSOLUTE MONOCYTES (AUTO) 0.6 10^3/uL (0.1-1.4); ABSOLUTE NEUT (AUTO) 4.1 10^3/uL (1.7-8.2); BASOPHILS % (AUTO) 0.5 % (0-2); EOSINOPHILS % (AUTO) 1.6 % (0-6); HEMATOCRIT 40.9 % (37.9-51.0); HEMOGLOBIN 14.3 g/dL (13.5-17.0); LYMPHOCYTES % (AUTO) 37.6 % (13-45); MEAN CORPUSCULAR HEMOGLOBIN 32.5 pg (27.0-33.4); MEAN CORPUSCULAR VOLUME 93 fl (80-97); MONOCYTES % (AUTO) 7.5 % (3-13); PLATELET COUNT 147 10^3/uL (150-450); RED BLOOD COUNT 4.41 10^6/uL (4.35-5.55); RED CELL DISTRIBUTION WIDTH 13.5 % (11.5-14.0); SEGMENTED NEUTROPHILS % (AUTO) 52.8 % (42-78); TOTAL CELLS COUNTED % (AUTO) 100 %; WHITE BLOOD COUNT 7.7 10^3/uL (4.0-10.5)
[2019-11-06 18:43] LABS: ALBUMIN 4.4 g/dL (3.5-5.0); ALKALINE PHOSPHATASE 63 U/L (38-126); ANION GAP 6 (5-19); ASPARTATE AMINO TRANSFERASE 27 U/L (17-59); BILIRUBIN,TOTAL 0.6 mg/dL (0.2-1.3); BLOOD UREA NITROGEN 19 mg/dL (7-20); CALCIUM 9.3 mg/dL (8.4-10.2); CARBON DIOXIDE 26 mmol/L (22-30); CHLORIDE 106 mmol/L (98-107); GLUCOSE 100 mg/dL (75-110); POTASSIUM 4.3 mmol/L (3.6-5.0); TOTAL PROTEIN 7.1 g/dL (6.3-8.2)
[2019-11-06 18:57] LABS: AMORPHOUS SEDIMENT,URINE TRACE /HPF; APPEARANCE,URINE CLOUDY; BILIRUBIN,URINE NEGATIVE (NEGATIVE); COLOR,URINE AMBER; GLUCOSE, URINE NEGATIVE (NEGATIVE); KETONES,URINE TRACE mg/dL (NEGATIVE); PROTEIN,URINE 100 mg/dL (NEGATIVE); URINE SPECIFIC GRAVITY 1.021
== END 2019-11-06 19:26 | disposition left against medical advice (07) ==
LOC: ER 17:46
DX: Z53.21 Procedure and treatment not carried out due to patient leaving prior to being seen by health care provider (principal); R10.9 Unspecified abdominal pain; R31.9 Hematuria, unspecified; R10.30 Lower abdominal pain, unspecified
CPT/HCPCS: 99281; 36415; 87086; 85025; 80053; 81001; S0119

== ENCOUNTER 2020-01-20 19:18 | Emergency (ER) | payer MEDICAID ==
--- NOTE | 2020-01-20 20:02 | ER Document Report ---
ED Medical Screen (RME) - General Chief Complaint: Abdominal Pain Stated Complaint: LUMP ON STOMACH Time Seen by Provider: 01/20/20 19:57 Primary Care Provider: RADHA ADAMES PA-C [Primary Care Provider] - Follow up as needed Mode of Arrival: Ambulatory Information source: Patient Notes: 39-year-old male presented to ED for painful lump to the upper mid abdomen. He states is been there for about 6 weeks. He states anytime he eats, anybody palpates it, or he stretches or lays on his stomach it becomes much worse. He states he is nauseated most of the time. He states there is no vomiting. He states he is always nauseated. He states he smokes from a half to a pack per day no alcohol no drugs. 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 He states he has been trying to get into his primary care doctor but has not been able to get in to see her for the last 6 weeks. I have greeted and performed a rapid initial assessment of this patient. A comprehensive ED assessment and evaluation of the patient, analysis of test results and completion of medical decision making process will be conducted by an additional ED providers. TRAVEL OUTSIDE OF THE [place] IN LAST 30 DAYS: No - Related Data Allergies/Adverse Reactions: No Known Allergies Allergy (Verified 01/20/20 19:49) Past Medical History - Social History Frequency of alcohol use: None Drug Abuse: None Renal/ Medical History: Reports: Hx Kidney Stones. Denies: Hx Peritoneal Dialysis Skin Medical History: Reports Hx MRSA Past Surgical History: Reports: Hx Kidney (Renal Surgery) - lithotripsy x7, Other - lithotrypsy - Immunizations Immunizations up to date: Yes Hx Diphtheria, Pertussis, Tetanus Vaccination: No Physical Exam - Vital signs Vitals: Temp Pulse Resp BP Pulse Ox 98.6 F 60 20 133/77 H 100 01/20/20 19:22 01/20/20 19:22 01/20/20 19:22 01/20/20 19:22 01/20/20 19:22 Course - Vital Signs Vital signs: Temp Pulse Resp BP Pulse Ox 98.6 F 60 20 133/77 H 100 01/20/20 19:49 01/20/20 19:22 01/20/20 19:22 01/20/20 19:22 01/20/20 19:22 Doctor's Discharge - Discharge Referrals: RADHA ADAMES PA-C [Primary Care Provider] - Follow up as needed
[2020-01-20 20:39] LABS: ABSOLUTE EOSINOPHILS # (AUTO) 0.1 10^3/uL (0.0-0.6); ABSOLUTE LYMPHOCYTES (AUTO) 2.8 10^3/uL (0.5-4.7); ABSOLUTE MONOCYTES (AUTO) 0.7 10^3/uL (0.1-1.4); ABSOLUTE NEUT (AUTO) 3.5 10^3/uL (1.7-8.2); BASOPHILS % (AUTO) 0.5 % (0-2); EOSINOPHILS % (AUTO) 1.6 % (0-6); HEMATOCRIT 40.1 % (37.9-51.0); HEMOGLOBIN 13.7 g/dL (13.5-17.0); LYMPHOCYTES % (AUTO) 38.7 % (13-45); MEAN CORPUSCULAR HEMOGLOBIN 32.1 pg (27.0-33.4); MEAN CORPUSCULAR HGB CONC 34.3 g/dL (32.0-36.0); MEAN CORPUSCULAR VOLUME 94 fl (80-97); PLATELET COUNT 114 10^3/uL (150-450); RED BLOOD COUNT 4.28 10^6/uL (4.35-5.55); SEGMENTED NEUTROPHILS % (AUTO) 49.2 % (42-78); TOTAL CELLS COUNTED % (AUTO) 100 %; WHITE BLOOD COUNT 7.1 10^3/uL (4.0-10.5)
[2020-01-20 20:50] LABS: ALBUMIN 4.2 g/dL (3.5-5.0); ALKALINE PHOSPHATASE 53 U/L (38-126); ANION GAP 5 (5-19); ASPARTATE AMINO TRANSFERASE 21 U/L (17-59); BILIRUBIN,TOTAL 0.6 mg/dL (0.2-1.3); BLOOD UREA NITROGEN 17 mg/dL (7-20); CALCIUM 9.4 mg/dL (8.4-10.2); CARBON DIOXIDE 28 mmol/L (22-30); CHLORIDE 107 mmol/L (98-107); GLUCOSE 98 mg/dL (75-110); POTASSIUM 4.4 mmol/L (3.6-5.0); TOTAL PROTEIN 6.8 g/dL (6.3-8.2)
--- NOTE | 2020-01-20 20:59 | RADIOLOGY REPORT (SQ) ---
EXAM DESCRIPTION: Limited ultrasound of the anterior abdominal wall. CLINICAL HISTORY: 39 years Male; painful lump upper abdomen TECHNIQUE: Abdominal ultrasound was performed. COMPARISON: CT scan of the abdomen 11/01/2019 FINDINGS: In the midline superior to the umbilicus is a discrete, hyperechoic mass which measures 2.4 x 2.3 x 1.0 cm. This appears to be fat echogenicity. No definitive abdominal wall hernia. In the midline to the left of the umbilicus is a separate hyperechoic area which measures 1.7 x 1.8 x 0.9 cm. This area is also discrete. On the CT scan these areas correlate with focal fatty nodules in the subcutaneous fat consistent with focal lipomas. IMPRESSION: Two discrete hyperechoic subcutaneous fat nodules in the anterior abdominal wall consistent with lipomas. No abdominal wall hernia seen.
[2020-01-20 21:01] LABS: AMORPHOUS SEDIMENT,URINE TRACE /HPF; APPEARANCE,URINE SLIGHTLY-CLOUDY; BILIRUBIN,URINE NEGATIVE (NEGATIVE); COLOR,URINE YELLOW; GLUCOSE, URINE NEGATIVE (NEGATIVE); KETONES,URINE NEGATIVE (NEGATIVE); LEUKOCYTE ESTERASE,URINE NEGATIVE (NEGATIVE); NITRITE,URINE NEGATIVE (NEGATIVE); PROTEIN,URINE NEGATIVE (NEGATIVE); URINE SPECIFIC GRAVITY 1.011; UROBILINOGEN,URINE NEGATIVE mg/dL (<2.0)
--- NOTE | 2020-01-20 22:36 | ER Document Report ---
ED General - General Chief Complaint: Abdominal Pain Stated Complaint: LUMP ON STOMACH Time Seen by Provider: 01/20/20 19:57 Primary Care Provider: RADHA ADAMES PA-C [Primary Care Provider] - Follow up as needed Mode of Arrival: Ambulatory TRAVEL OUTSIDE OF THE [place] 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 He states is been there for about 6 weeks. He states anytime he eats, anybody palpates it, or he stretches or lays on his st omach it becomes much worse. Occasional nausea without vomiting. Weight is stable. No change in bowel habits. He states he smokes from a half to a pack per day no alcohol no drugs. He denies injury. - Related Data Allergies/Adverse Reactions: No Known Allergies Allergy (Verified 01/20/20 19:49) Past Medical History - General Information source: Patient - Social History Smoking Status: Current Every Day Smoker Frequency of alcohol use: None Drug Abuse: None Family History: Reviewed & Not Pertinent, CAD, DM, Hypertension, Malignancy, Other - Mother and brother have SVT long QT and he states have both had a heart attack and on pacemaker defibrillator Patient has homicidal ideation: No Renal/ Medical History: Reports: Hx Kidney Stones. Denies: Hx Peritoneal Dialysis Skin Medical History: Reports Hx MRSA Past Surgical History: Reports: Hx Kidney (Renal Surgery) - lithotripsy x7, Other - lithotrypsy - Immunizations Immunizations up to date: Yes Hx Diphtheria, Pertussis, Tetanus Vaccination: No Review of Systems - Review of Systems Notes: Constitutional: Negative for fever. HENT: Negative for sore throat. Eyes: Negative for visual changes. Cardiovascular: Negative for chest pain. Respiratory: Negative for shortness of breath. Gastrointestinal: As per HPI. Genitourinary: Negative for dysuria. Musculoskeletal: Negative for back pain. Skin: Negative for rash. Neurological: Negative for headaches, weakness or numbness. 10 point ROS negative except as marked above and in HPI. Physical Exam - Vital signs Vitals: Temp Pulse Resp BP Pulse Ox 98.6 F 60 20 133/77 H 100 01/20/20 19:22 01/20/20 19:22 01/20/20 19:22 01/20/20 19:22 01/20/20 19:22 - Notes Notes: GENERAL: Well-developed well-nourished appearing in no acute distress. SKIN: Good turgor no rashes. HEAD: Normocephalic atraumatic. EYES: PERRLA. EOMI. Conjunctivae and sclerae clear. EARS: CANALS AND TMS CLEAR. NOSE: CLEAR. MOUTH: Moist mucosa. Good dentition. No stridor or edema. No drooling. NECK: Supple. No masses or thyromegaly. No adenopathy. Carotids 2+ without bruits. No JVD. BACK: Symmetrical without tenderness. CHEST: Respirations unlabored. Breath sounds clear and symmetrical. HEART: Regular rhythm. No murmur gallop or rub. ABDOMEN: Patient has 2 slightly firm nodules of the abdominal wall each measuring approximately 2.5 cm's. 1 of these is just above the umbilicus and the other is to the left side of the umbilicus. Soft without organomegaly or rebound. Bowel sounds normally active. No bruits. GENITALIA: Deferred. EXTREMITIES: No edema. No calf tenderness. Cap refill less than 1.5 seconds. Dorsalis pedis and posterior tibial pulses 3+ and symmetrical. NEUROLOGICAL: GCS 15. Alert and oriented x3. Normal gait. Fluent speech. Cranial nerves II through XII intact. Sensorimotor and cerebellar normal. Normal tone. PSYCHIATRIC: Appropriate affect. Course - Re-evaluation Re-evalutation: 01/20/20 22:48 Urinalysis, CBC and comprehensive metabolic profile are unremarkable. Patient is advised that the lesions are probably benign lipomas of the abdominal wall. We will refer him to a surgeon for outpatient follow-up and I am going to give him some naproxen for as needed use for pain. Findings, clinical impression and plan of treatment have been discussed with patient/family. Understanding of current findings and recommendations has been acknowledged by them and there is agreement regarding disposition and follow-up. - Vital Signs Vital signs: Temp Pulse Resp BP Pulse Ox 98.6 F 60 20 133/77 H 100 01/20/20 19:49 01/20/20 19:22 01/20/20 19:22 01/20/20 19:22 01/20/20 19:22 - Laboratory Result Diagrams: 01/20/20 20:20 01/20/20 20:20 Laboratory results interpreted by me: 01/20/20 20:20 RBC 4.28 L Plt Count 114 L - Diagnostic Test Radiology reviewed: Reports reviewed - Ultrasound of the abdomen shows 2 hyperechoic areas in the abdominal wall consistent with lipomas per radiologist. Discharge - Discharge Clinical Impression: Lipoma of abdominal wall Condition: Stable Disposition: HOME, SELF-CARE Additional Instructions: You have what appeared to be 2 benign fatty growths of the abdominal wall. We will refer you to a surgeon for further outpatient evaluation although this may not require any surgical procedure. You have been provided a prescription to take as needed for discomfort. Return here as needed for new or worsening symptoms: Pain that is worsening or unimproved Uncontrolled vomiting High fever or shaking chills Overall worsening Prescriptions: Naproxen 500 mg PO BID PRN #14 tablet PRN Reason: Referrals: RADHA ADAMES PA-C [Primary Care Provider] - Follow up as needed PACO REYNOLDS MD [ACTIVE STAFF] - Follow up as needed
[2020-01-20 22:50] VITALS: BP 111/64
== END 2020-01-20 22:50 | disposition home or self-care (01) ==
LOC: ER 19:18
DX: D17.1 Benign lipomatous neoplasm of skin and subcutaneous tissue of trunk (principal); R11.0 Nausea; F17.200 Nicotine dependence, unspecified, uncomplicated
CPT/HCPCS: 36415; 76705; 80053; 81001; 83690; 85025; 99284

== ENCOUNTER 2020-06-13 16:32 | Emergency (ER) | payer MEDICAID ==
--- NOTE | 2020-06-13 16:48 | ER Document Report ---
ED Medical Screen (RME) - General Chief Complaint: Nausea Stated Complaint: NAUSEA,ABDOMINAL PAIN Time Seen by Provider: 06/13/20 16:43 Primary Care Provider: RADHA ADAMES PA-C [Primary Care Provider] - Follow up as needed Mode of Arrival: Ambulatory Information source: Patient Notes: 39-year-old male presented to ED for complaint of frequent urination with rosette umbilical pain going down to the groin. He states about 2:00 this morning he woke up with back pain now his pain is around his umbilicus and going down to the groin. He states it hurts for him to start and stop urinating. His Accu- Chek is 105. We will get blood urine and a noncontrasted CT of the abdomen pelvis TRAVEL OUTSIDE OF THE [place] IN LAST 30 DAYS: No - Related Data Allergies/Adverse Reactions: No Known Allergies Allergy (Verified 01/20/20 19:49) Past Medical History - General Information source: Patient - Social History Cigarette use (# per day): Yes - 5 to 6 cigarettes a day Chew tobacco use (# tins/day): No Frequency of alcohol use: None Drug Abuse: None Lives with: Family Family history: Reviewed & Not Pertinent - Past Medical History Cardiac Medical History: Reports: None Pulmonary Medical History: Reports: None EENT Medical History: Reports: None Neurological Medical History: Reports: None Renal/ Medical History: Reports: Hx Kidney Stones Malignancy Medical History: Reports None GI Medical History: Reports: None Musculoskeltal Medical History: Reports Hx Musculoskeletal Trauma - Clavicle Skin Medical History: Reports Hx MRSA Psychiatric Medical History: Reports: None Traumatic Medical History: Reports: Hx Fractures - right clavicle at 14 Infectious Medical History: Reports: None Past Surgical History: Reports: Hx Kidney (Renal Surgery) - lithotripsy x5 - Immunizations Immunizations up to date: Yes Hx Diphtheria, Pertussis, Tetanus Vaccination: No Physical Exam - Vital signs Vitals: Temp Pulse Resp BP Pulse Ox 98.2 F 77 18 153/103 H 97 06/13/20 16:42 06/13/20 16:42 06/13/20 16:42 06/13/20 16:42 06/13/20 16:42 Course - Vital Signs Vital signs: Temp Pulse Resp BP Pulse Ox 98.2 F 77 18 142/80 H 97 06/13/20 16:42 06/13/20 16:42 06/13/20 16:42 06/13/20 16:51 06/13/20 16:42 Doctor's Discharge - Discharge Referrals: RADHA ADAMES PA-C [Primary Care Provider] - Follow up as needed
[2020-06-13] MEDS ORDERED: ONDANSETRON HCL INJ/PF 4 MG/2 ML SDV IV ONE ×2 (16:53→19:49)
[2020-06-13] MEDS ORDERED: NORMAL SALINE 1000 ML 1,000 ML IV ONE (16:53)
[2020-06-13] MEDS ORDERED: KETOROLAC TROMETHAMINE INJ/PF 30 MG/1 ML SDV IV ONE (16:53)
[2020-06-13 17:29] LABS: ABSOLUTE EOSINOPHILS # (AUTO) 0.1 10^3/uL (0.0-0.6); ABSOLUTE LYMPHOCYTES (AUTO) 2.7 10^3/uL (0.5-4.7); ABSOLUTE MONOCYTES (AUTO) 0.8 10^3/uL (0.1-1.4); ABSOLUTE NEUT (AUTO) 5.9 10^3/uL (1.7-8.2); BASOPHILS % (AUTO) 0.5 % (0-2); EOSINOPHILS % (AUTO) 1.5 % (0-6); HEMATOCRIT 46.8 % (37.9-51.0); HEMOGLOBIN 15.8 g/dL (13.5-17.0); LYMPHOCYTES % (AUTO) 28.5 % (13-45); MEAN CORPUSCULAR HEMOGLOBIN 31.5 pg (27.0-33.4); MEAN CORPUSCULAR HGB CONC 33.7 g/dL (32.0-36.0); MEAN CORPUSCULAR VOLUME 93 fl (80-97); PLATELET COUNT 143 10^3/uL (150-450); RED BLOOD COUNT 5.02 10^6/uL (4.35-5.55); RED CELL DISTRIBUTION WIDTH 13.6 % (11.5-14.0); SEGMENTED NEUTROPHILS % (AUTO) 61.5 % (42-78); TOTAL CELLS COUNTED % (AUTO) 100 %; WHITE BLOOD COUNT 9.5 10^3/uL (4.0-10.5)
[2020-06-13 17:48] LABS: AMORPHOUS SEDIMENT,URINE TRACE /HPF; APPEARANCE,URINE CLOUDY; BILIRUBIN,URINE NEGATIVE (NEGATIVE); COLOR,URINE YELLOW; GLUCOSE, URINE NEGATIVE (NEGATIVE); KETONES,URINE NEGATIVE (NEGATIVE); LEUKOCYTE ESTERASE,URINE SMALL (NEGATIVE); NITRITE,URINE NEGATIVE (NEGATIVE); PROTEIN,URINE 100 mg/dL (NEGATIVE); URINE SPECIFIC GRAVITY 1.014; UROBILINOGEN,URINE NEGATIVE mg/dL (<2.0)
[2020-06-13 17:50] LABS: ALKALINE PHOSPHATASE 68 U/L (38-126); ASPARTATE AMINO TRANSFERASE 23 U/L (17-59); BILIRUBIN,DIRECT 0.1 mg/dL (0.0-0.4); BILIRUBIN,TOTAL 0.7 mg/dL (0.2-1.3); BLOOD UREA NITROGEN 13 mg/dL (7-20); CALCIUM 10.8 mg/dL (8.4-10.2); CARBON DIOXIDE 29 mmol/L (22-30); GLUCOSE 103 mg/dL (75-110); POTASSIUM 4.3 mmol/L (3.6-5.0)
[2020-06-13 17:51] LABS: TOTAL PROTEIN 8.1 g/dL (6.3-8.2)
--- NOTE | 2020-06-13 17:51 | RADIOLOGY REPORT (SQ) ---
EXAM DESCRIPTION: CT ABD/PELVIS NO ORAL OR IV IMAGES COMPLETED DATE/TIME: 06/13/2020 5:41 pm REASON FOR STUDY: Pain started left back now to the umbilicus COMPARISON: 10/22/2019 TECHNIQUE: CT scan of the abdomen and pelvis performed without intravenous or oral contrast. Images reviewed with lung, soft tissue, and bone windows. Reconstructed coronal and sagittal MPR images revi ewed. All images stored on PACS. All CT scanners at this facility use dose modulation, iterative reconstruction, and/or weight based d osing when appropriate to reduce radiation dose to as low as reasonably achievable (ALARA). [facility]: Dose Right [facility]: CareDose [facility]: Dose Right [facility]: Teradose 4D [facility]: Smart Pinevent RADIATION DOSE: CT Rad equipment meets quality standard of care and radiation dose reduction techniq ues were employed. CTDIvol: 4.8 mGy. DLP: 229 mGy-cm.mGy. LIMITATIONS: None. FINDINGS: LOWER CHEST: No significant findings. No nodules or infiltrates. NON-CONTRASTED LIVER, SPLEEN, ADRENALS: Evaluation limited by lack of IV contrast. No identified sign ificant masses. PANCREAS: No masses. No peripancreatic inflammatory changes. GALLBLADDER: No identified stones by CT criteria. No inflammatory changes to suggest cholecystitis. RIGHT KIDNEY AND URETER: No suspicious masses. Assessment limited by lack of IV contrast. Vague rad iodensity posterior kidney. Probably amorphous calculus. No hydronephrosis or hydroureter. LEFT KIDNEY AND URETER: No suspicious masses. Assessment limited by lack of IV contrast. Small rosette pheral calculus. No hydronephrosis or hydroureter. AORTA AND RETROPERITONEUM: No aneurysm. No retroperitoneal masses or adenopathy. BOWEL AND PERITONEAL CAVITY: No obvious masses or inflammatory changes. No free fluid. APPENDIX: Normal. PELVIS, BLADDER, AND ABDOMINAL WALL:No abnormal masses. No free fluid. Bladder normal. BONES: No significant findings. OTHER: No other significant finding. IMPRESSION: Bilateral peripheral nonobstructive nephrolithiasis peer COMMENT: Quality ID # [id number]: Final reports with documentation of one or more dose reduction techniques (e.g., Automated exposure control, adjustment of the mA and/or kV according to patient size, use of iterative reconstruction technique) TECHNICAL DOCUMENTATION: JOB ID: [id number] 2010 [employer]- All Rights Reserved Reading location - IP/workstation name: [email or web address]
[2020-06-13 17:52] LABS: ANION GAP 10 (5-19); CHLORIDE 105 mmol/L (98-107)
[2020-06-13] MEDS ORDERED: HYDROMORPHONE HCL INJ/PF 2 MG/ML AMPULE IV ONE (19:48)
--- NOTE | 2020-06-13 21:16 | ER Document Report ---
ED GI/ - General Chief Complaint: Flank Pain Stated Complaint: NAUSEA,ABDOMINAL PAIN Time Seen by Provider: 06/13/20 16:43 Primary Care Provider: RADHA ADAMES PA-C [Primary Care Provider] - Follow up as needed Mode of Arrival: Ambulatory Notes: 39-year-old man presenting to the emergency department with a complaint of pain involving the left flank area and radiating down into his groin area. He states that the symptoms began around 2 AM this morning. He also notes some urinary urgency and dysuria. He has had a history of kidney stone in the past. He denies fever, nausea vomiting or testicular pain.. TRAVEL OUTSIDE OF THE [place] IN LAST 30 DAYS: No - Related Data Allergies/Adverse Reactions: No Known Allergies Allergy (Verified 01/20/20 19:49) Past Medical History - General Information source: Patient - Social History Smoking Status: Unknown if Ever Smoked Cigarette use (# per day): Yes - 5 to 6 cigarettes a day Chew tobacco use (# tins/day): No Frequency of alcohol use: None Drug Abuse: None Lives with: Family Family History: Reviewed & Not Pertinent, CAD, DM, Hypertension, Malignancy, Other - Mother and brother have SVT long QT and he states have both had a heart attack and on pacemaker defibrillator Patient has homicidal ideation: No - Past Medical History Cardiac Medical History: Reports: None Pulmonary Medical History: Reports: None EENT Medical History: Reports: None Neurological Medical History: Reports: None Renal/ Medical History: Reports: Hx Kidney Stones. Denies: Hx Peritoneal Dialysis Malignancy Medical History: Reports None GI Medical History: Reports: None Musculoskeletal Medical History: Reports Hx Musculoskeletal Trauma - Clavicle Skin Medical History: Reports Hx MRSA Psychiatric Medical History: Reports: None Traumatic Medical History: Reports: Hx Fractures - right clavicle at 14 Infectious Medical History: Reports: None Past Surgical History: Reports: Hx Kidney (Renal Surgery) - lithotripsy x5, Other - lithotrypsy - Immunizations Immunizations up to date: Yes Hx Diphtheria, Pertussis, Tetanus Vaccination: No Review of Systems - Review of Systems Notes: Constitutional: Negative for fever. HENT: Negative for sore throat. Eyes: Negative for visual changes. Cardiovascular: Negative for chest pain. Respiratory: Negative for shortness of breath. Gastrointestinal: Negative for abdominal pain, vomiting or diarrhea. Genitourinary: See HPI Musculoskeletal: Negative for back pain. Skin: Negative for rash. Neurological: Negative for headaches, weakness or numbness. 10 point ROS negative except as marked above and in HPI. Physical Exam - Vital signs Vitals: Temp Pulse Resp BP Pulse Ox 98.2 F 77 18 153/103 H 97 06/13/20 16:42 06/13/20 16:42 06/13/20 16:42 06/13/20 16:42 06/13/20 16:42 - Notes Notes: PHYSICAL EXAMINATION: Physical Exam: General: Well-nourished well-developed in no acute distress HEENT: NC/AT, pupils equal round and reactive to light, MM moist,nares clear, oropharynx clear, airway patent Neck: supple, no adenopathy, no masses. Good range of motion Lungs: clear, no wheezing, no rales no rhonchi CVS: Regular rate and rhythm no murmur gallop or rub Abdomen: Soft, active, nontender, no masses, no hepatosplenomegaly Back: No CVA tenderness. Ext: No edema, clubbing or cyanosis. Neuro: Alert and responsive, moving all 4 extremities on command, cranial nerves intact, no focal findings Skin: Intact no open lesions, no rash PSYCH: Normal mood, normal affect. Course - Re-evaluation Re-evalutation: 06/13/20 21:19 He was given Toradol and IV fluids with some mild relief of his symptoms. CT scan was performed which does not reveal an obstructing urinary calculus, but he does have a small stone which does not appear to be causing obstruction involving the left ureter. Discussed the findings with the patient and explained that we will cover him with medications for nausea and also for pain and he should push fluids and follow-up with his outpatient physician if needed. - Vital Signs Vital signs: Temp Pulse Resp BP Pulse Ox 98.2 F 77 18 142/80 H 97 06/13/20 16:42 06/13/20 16:42 06/13/20 16:42 06/13/20 16:51 06/13/20 16:42 - Laboratory Result Diagrams: 06/13/20 17:13 06/13/20 17:13 Laboratory results interpreted by me: 06/13/20 06/13/20 06/13/20 17:13 17:13 17:13 Plt Count 143 L Calcium 10.8 H Urine Protein 100 H Urine Blood LARGE H Ur Leukocyte Esterase SMALL H - Diagnostic Test Radiology reviewed: Image reviewed, Reports reviewed Radiology results interpreted by me: 06/13/20 21:20 Abdomen/Pelvis CT 06/13/20 16:52 IMPRESSION: Bilateral peripheral nonobstructive nephrolithiasis peer Discharge - Discharge Clinical Impression: Kidney stone on left side UTI (urinary tract infection) Qualifiers: Urinary tract infection type: site unspecified Hematuria presence: with hematuria Qualified Code(s): N39.0 - Urinary tract infection, site not specified; R31.9 - Hematuria, unspecified Disposition: HOME, SELF-CARE Instructions: Urinary Tract Infection ([facility]) Additional Instructions: You are seen in the emergency department today with pain involving the left flank area radiating down into the groin area. It appears that his symptoms are renal colic and related to a small kidney stone. There is no obstruction of the urinary flow and because there are a few white blood cells and bacteria in the urine you are being put on an antibiotic. Please take these medications as prescribed, drink plenty of fluids and follow-up with urologist if needed. A name of a urologist is being provided in the referral. If your symptoms are worsening or if you have other concerns you may return to the emergency department for further evaluation and treatment HOME CARE INSTRUCTIONS & INFORMATION: Thank you for choosing us for your [facility] needs. We hope you're satisfied with the care you received. After you leave, you must properly care for your problem and, at the same time, observe its progress. Any condition can change. Some illnesses can change rapidly over hours or days. If your condition worsens, return to the Emergency Department or see your physician promptly. ABOUT YOUR X-RAYS AND EKG'S: If you had an EKG or X-rays taken, they have been read by the Emergency Physician. The X-rays and EKG's will also be read by a Radiologist or Bias Cutter Helper within 24 hours. If discrepancies are noted, you will be notified by telephone. Please be certain the ED has a correct telephone number & address where you can be reached. Also, realize that some fractures or abnormalities do not show up on initial X-rays. If your symptoms continue, see your physician. ABOUT YOUR LABORATORY TEST: If you had laboratory tests, the results have been reviewed by the Emergency Physician. Some test results (for example cultures) may not be available for several days. You will be contacted if any test result shows you need additional treatment. Please be certain the ED has a correct telephone number and address where you can be reached. ABOUT YOUR MEDICATIONS: You will receive instructions on how to take your medicine on the prescription label you receive. Additional information may be provided by the Pharmacy. If you have questions afterwards, call the ED for clarification or further instructions. Some prescribed medications may cause drowsiness. Do not perform tasks such as driving a car or operating machinery without consulting your Pharmacist. If you feel you need a refill of pain medication, your condition will need re-evaluation. Please do not call for a refill of any medication. ABOUT YOUR SIGNATURE: Signature of this document acknowledges to followin. Understanding that you received emergency treatment and that you may be released before al medical problems are known or treated. Please be certain the ED has a correct phone number & address where you can be reached. 2. Acknowledgement that you will arrange for follow-up care as recommended. 3. Authorization for the Emergency Physician to provide information to your follow-up Physician in order to maximize your care. AT ANY TIME, IF YOUR SYMPTOMS CHANGE SIGNIFICANTLY OR WORSEN OR YOU DEVELOP NEW SYMPTOMS, RETURN TO THE EMERGENCY DEPARTMENT IMMEDIATELY FOR RE-EVALUATION. OUR GOAL IS TO PROVIDE EXCELLENT MEDICAL CARE! WE HOPE THAT WE HAVE MET YOUR EXPECTATIONS DURING YOUR EMERGENCY DEPARTMENT VISIT AND THAT YOU FEEL YOU HAVE RECEIVED EXCELLENT CARE! Prescriptions: Cephalexin Monohydrate [Keflex 500 mg Capsule] 500 mg PO Q8 7 Days capsule Referrals: RADHA ADAMES PA-C [Primary Care Provider] - Follow up as needed
[2020-06-13] MEDS ORDERED: CEPHALEXIN 500 MG CAPSULE PO ONE (21:24)
[2020-06-13] MEDS ORDERED: ONDANSETRON ODT 4 MG TAB (6 TAB/ER DISP) PO PRN (21:25)
[2020-06-13] MEDS ORDERED: HYDROCODONE/ACETAMINOPHEN 5-325 MG (6 TAB/ER DISP) PO PRN (21:25)
[2020-06-13 21:36] VITALS: BP 120/73
== END 2020-06-13 21:36 | disposition home or self-care (01) ==
LOC: ER 16:32
DX: N20.0 Calculus of kidney (principal); N39.0 Urinary tract infection, site not specified; R31.9 Hematuria, unspecified; R10.9 Unspecified abdominal pain; F17.210 Nicotine dependence, cigarettes, uncomplicated; Z87.442 Personal history of urinary calculi
CPT/HCPCS: 96376; 99285; 96361; 96374; 96375; 36415; 87086; 82962; 83690; 85025; 87088; 80053; 81001; 74176; J1885; J1170; J2405; J7030; 87186

== ENCOUNTER 2020-06-14 13:01 | Emergency (ER) | payer MEDICAID ==
[2020-06-14 13:06] VITALS: BP 135/78
[2020-06-14] MEDS ORDERED: NORMAL SALINE 1000 ML 1,000 ML IV ONE (13:53)
[2020-06-14] MEDS ORDERED: ONDANSETRON 4 MG TAB.RAPDIS PO ONE (13:53)
[2020-06-14] MEDS ORDERED: KETOROLAC TROMETHAMINE INJ/PF 30 MG/1 ML SDV IV ONE (13:53)
[2020-06-14] MEDS ORDERED: MORPHINE SULFATE 10 MG/ML INJ IV ONE (13:53)
--- NOTE | 2020-06-14 13:54 | ER Document Report ---
ED Medical Screen (RME) - General Chief Complaint: Vomiting Stated Complaint: ABDOMINAL PAIN Time Seen by Provider: 06/14/20 13:49 Primary Care Provider: RADHA ADAMES PA-C [Primary Care Provider] - Follow up as needed Information source: Patient Notes: Patient presents complaining of nausea vomiting and suprapubic pain. Patient was seen here yesterday and diagnosed with a kidney stone. Patient states he is not been able to take any of his medications due to his vomiting. Patient states he is vomited 8 times. Patient denies any diarrhea. Patient denies any concern about Covid. Patient reports a history of kidney stones with previous lithotripsy and previous stent placement. Patient without any current stents at this time. I have greeted and performed a rapid initial assessment of this patient. A comprehensive ED assessment and evaluation of the patient, analysis of test results and completion of the medical decision making process will be conducted by additional ED providers. TRAVEL OUTSIDE OF THE [place] IN LAST 30 DAYS: No - Related Data Allergies/Adverse Reactions: No Known Allergies Allergy (Verified 06/14/20 13:46) Past Medical History - Social History Chew tobacco use (# tins/day): No Drug Abuse: None Family history: Reviewed & Not Pertinent Renal/ Medical History: Reports: Hx Kidney Stones. Denies: Hx Peritoneal Dialysis Musculoskeltal Medical History: Reports Hx Musculoskeletal Trauma - Clavicle Skin Medical History: Reports Hx MRSA Traumatic Medical History: Reports: Hx Fractures - right clavicle at 14 Past Surgical History: Reports: Hx Kidney (Renal Surgery) - lithotripsy x5, Other - lithotrypsy - Immunizations Immunizations up to date: Yes Hx Diphtheria, Pertussis, Tetanus Vaccination: No Physical Exam - Vital signs Vitals: Temp Pulse Resp BP Pulse Ox 98.2 F 77 16 135/78 H 100 06/14/20 13:05 06/14/20 13:05 06/14/20 13:05 06/14/20 13:05 06/14/20 13:05 - Abdominal Tenderness: Tender - Suprapubic Course - Vital Signs Vital signs: Temp Pulse Resp BP Pulse Ox 98.2 F 77 16 135/78 H 100 06/14/20 13:05 06/14/20 13:05 06/14/20 13:05 06/14/20 13:05 06/14/20 13:05 Doctor's Discharge - Discharge Referrals: RADHA ADAMES PA-C [Primary Care Provider] - Follow up as needed
[2020-06-14 14:29] LABS: ABSOLUTE BASOPHILS # (AUTO) 0.1 10^3/uL (0.0-0.2); ABSOLUTE LYMPHOCYTES (AUTO) 1.7 10^3/uL (0.5-4.7); ABSOLUTE MONOCYTES (AUTO) 0.5 10^3/uL (0.1-1.4); ABSOLUTE NEUT (AUTO) 6.3 10^3/uL (1.7-8.2); BASOPHILS % (AUTO) 0.7 % (0-2); EOSINOPHILS % (AUTO) 0.3 % (0-6); HEMOGLOBIN 14.7 g/dL (13.5-17.0); LYMPHOCYTES % (AUTO) 19.8 % (13-45); MEAN CORPUSCULAR HEMOGLOBIN 31.8 pg (27.0-33.4); MEAN CORPUSCULAR HGB CONC 34.1 g/dL (32.0-36.0); MEAN CORPUSCULAR VOLUME 93 fl (80-97); MONOCYTES % (AUTO) 5.6 % (3-13); PLATELET COUNT 119 10^3/uL (150-450); RED BLOOD COUNT 4.61 10^6/uL (4.35-5.55); RED CELL DISTRIBUTION WIDTH 13.7 % (11.5-14.0); SEGMENTED NEUTROPHILS % (AUTO) 73.6 % (42-78); TOTAL CELLS COUNTED % (AUTO) 100 %; WHITE BLOOD COUNT 8.6 10^3/uL (4.0-10.5)
[2020-06-14 14:39] LABS: APPEARANCE,URINE CLEAR; BILIRUBIN,URINE NEGATIVE (NEGATIVE); CALCIUM OXALATE CRYSTALS,URINE RARE /HPF; COLOR,URINE YELLOW; GLUCOSE, URINE NEGATIVE (NEGATIVE); KETONES,URINE NEGATIVE (NEGATIVE); LEUKOCYTE ESTERASE,URINE NEGATIVE (NEGATIVE); NITRITE,URINE NEGATIVE (NEGATIVE); PROTEIN,URINE 30 mg/dL (NEGATIVE); URINE SPECIFIC GRAVITY 1.028; UROBILINOGEN,URINE NEGATIVE mg/dL (<2.0)
[2020-06-14 14:54] LABS: ALBUMIN 4.4 g/dL (3.5-5.0); ALKALINE PHOSPHATASE 66 U/L (38-126); ANION GAP 6 (5-19); ASPARTATE AMINO TRANSFERASE 21 U/L (17-59); BILIRUBIN,TOTAL 1.1 mg/dL (0.2-1.3); BLOOD UREA NITROGEN 18 mg/dL (7-20); CALCIUM 9.8 mg/dL (8.4-10.2); CARBON DIOXIDE 26 mmol/L (22-30); CHLORIDE 109 mmol/L (98-107); GLUCOSE 99 mg/dL (75-110); POTASSIUM 4.6 mmol/L (3.6-5.0); TOTAL PROTEIN 7.3 g/dL (6.3-8.2)
== END 2020-06-14 16:23 | disposition left against medical advice (07) ==
LOC: ER 13:01
DX: R11.2 Nausea with vomiting, unspecified (principal); R10.2 Pelvic and perineal pain; Z87.442 Personal history of urinary calculi; Z86.14 Personal history of Methicillin resistant Staphylococcus aureus infection
CPT/HCPCS: 36415; 80053; 81001; 83690; 85025; 99281

== ENCOUNTER 2020-06-16 15:25 | Emergency (ER) | payer MEDICAID ==
[2020-06-16] MEDS ORDERED: ONDANSETRON HCL INJ/PF 4 MG/2 ML SDV IV ONE (15:45)
[2020-06-16] MEDS ORDERED: NORMAL SALINE 1000 ML 1,000 ML IV ONE (15:46)
--- NOTE | 2020-06-16 15:49 | ER Document Report ---
ED Medical Screen (RME) - General Chief Complaint: Flank Pain Stated Complaint: LEFT FLANK PAIN Time Seen by Provider: 06/16/20 15:41 Primary Care Provider: RADHA ADAMES PA-C [Primary Care Provider] - Follow up as needed TRAVEL OUTSIDE OF THE U[place]S. IN LAST 30 DAYS: No - HPI Notes: Patient is a 39-year-old male who presents with nausea and vomiting. Patient was seen in the ED 3 days ago and was diagnosed with kidney stone on the left side. He was discharged home with prescriptions for Zofran and [place] but has been unable to keep them down due to persistent vomiting. He tried to come back to the ED 2 days ago but left prior to getting a room in the back as he waited over 6 hours. Patient states he still continues to vomit and has been a unable to keep any fluids or medicine down. He reports left groin pain but denies hematuria, dysuria, and diarrhea. - Related Data Allergies/Adverse Reactions: No Known Allergies Allergy (Verified 06/14/20 13:46) Past Medical History - Social History Chew tobacco use (# tins/day): No Frequency of alcohol use: None Drug Abuse: None Family history: Reviewed & Not Pertinent Renal/ Medical History: Reports: Hx Kidney Stones. Denies: Hx Peritoneal Dialysis Musculoskeltal Medical History: Reports Hx Musculoskeletal Trauma - Clavicle Skin Medical History: Reports Hx MRSA Traumatic Medical History: Reports: Hx Fractures - right clavicle at 14 Past Surgical History: Reports: Hx Kidney (Renal Surgery) - lithotripsy x5, Other - lithotrypsy - Immunizations Immunizations up to date: Yes Hx Diphtheria, Pertussis, Tetanus Vaccination: No Physical Exam - Vital signs Vitals: Temp Pulse Resp BP Pulse Ox 97.6 F 78 20 141/101 H 100 06/16/20 15:31 06/16/20 15:31 06/16/20 15:31 06/16/20 15:31 06/16/20 15:31 - Cardiovascular Rhythm: Regular Heart sounds: Normal auscultation Course - Re-evaluation Re-evalutation: I have greeted and performed a rapid initial assessment of this patient. A comprehensive ED assessment and evaluation of the patient, analysis of test results and completion of medical decision making process will be conducted by an additional ED providers. - Vital Signs Vital signs: Temp Pulse Resp BP Pulse Ox 97.6 F 78 20 141/101 H 100 06/16/20 15:31 06/16/20 15:31 06/16/20 15:31 06/16/20 15:31 06/16/20 15:31 Doctor's Discharge - Discharge Referrals: RADHA ADAMES PA-C [Primary Care Provider] - Follow up as needed
[2020-06-16 16:16] LABS: ABSOLUTE BASOPHILS # (AUTO) 0.1 10^3/uL (0.0-0.2); ABSOLUTE LYMPHOCYTES (AUTO) 2.2 10^3/uL (0.5-4.7); ABSOLUTE MONOCYTES (AUTO) 0.9 10^3/uL (0.1-1.4); ABSOLUTE NEUT (AUTO) 7.5 10^3/uL (1.7-8.2); BASOPHILS % (AUTO) 0.5 % (0-2); EOSINOPHILS % (AUTO) 0.2 % (0-6); HEMATOCRIT 47.2 % (37.9-51.0); HEMOGLOBIN 16.3 g/dL (13.5-17.0); LYMPHOCYTES % (AUTO) 20.4 % (13-45); MEAN CORPUSCULAR HEMOGLOBIN 31.4 pg (27.0-33.4); MEAN CORPUSCULAR HGB CONC 34.4 g/dL (32.0-36.0); MEAN CORPUSCULAR VOLUME 91 fl (80-97); MONOCYTES % (AUTO) 8.2 % (3-13); PLATELET COUNT 129 10^3/uL (150-450); RED BLOOD COUNT 5.18 10^6/uL (4.35-5.55); RED CELL DISTRIBUTION WIDTH 13.7 % (11.5-14.0); SEGMENTED NEUTROPHILS % (AUTO) 70.7 % (42-78); TOTAL CELLS COUNTED % (AUTO) 100 %; WHITE BLOOD COUNT 10.6 10^3/uL (4.0-10.5)
[2020-06-16 16:37] LABS: ALBUMIN 5.2 g/dL (3.5-5.0); ALKALINE PHOSPHATASE 80 U/L (38-126); ANION GAP 12 (5-19); ASPARTATE AMINO TRANSFERASE 22 U/L (17-59); BILIRUBIN,TOTAL 2.1 mg/dL (0.2-1.3); BLOOD UREA NITROGEN 18 mg/dL (7-20); CALCIUM 10.8 mg/dL (8.4-10.2); CARBON DIOXIDE 26 mmol/L (22-30); CHLORIDE 102 mmol/L (98-107); GLUCOSE 130 mg/dL (75-110); POTASSIUM 3.8 mmol/L (3.6-5.0); TOTAL PROTEIN 8.4 g/dL (6.3-8.2)
--- NOTE | 2020-06-16 17:21 | ER Document Report ---
ED GI/ - General Chief Complaint: Flank Pain Stated Complaint: LEFT FLANK PAIN Time Seen by Provider: 06/16/20 15:41 Primary Care Provider: RADHA ADAMES PA-C [Primary Care Provider] - Follow up as needed Notes: CHIEF COMPLAINT: Left flank pain and vomiting for 3 days HPI: 39-year-old male presenting for left flank pain and vomiting for 3 days. Patient states he had presented 3 days ago for left flank pain believes he was told he had a kidney stone, was discharged on Zofran and [place] but states that he has been throwing up the whole time and has not been able to keep his medications down now feels the pain more towards the groin region but denies testicular pain. No fever. ROS: See HPI - all other systems were reviewed and are otherwise negative Constitutional: no fever Eyes: no drainage, no blurred vision ENT: no runny nose, no sore throat Cardiovascular: no chest pain Resp: no SOB, no cough GI: + vomiting, no diarrhea, + abdominal pain : no dysuria Integumentary: no rash Allergy: no hives Musculoskeletal: no extremity pain or swelling Neurological: no numbness/tingling, no weakness MEDICATIONS: I agree with the patient medications as charted by the RN. ALLERGIES: I agree with the allergies as charted by the RN. PAST MEDICAL HISTORY/PAST SURGICAL HISTORY: Reviewed and agree as charted by RN. SOCIAL HISTORY: Reviewed and agree as charted by RN. FAMILY HISTORY: No significant familial comorbid conditions directly related to patient complaint EXAM: Reviewed vital signs as charted by RN. CONSTITUTIONAL: Alert and oriented and responds appropriately to questions. Disheveled-appearing; well-nourished HEAD: Normocephalic; atraumatic EYES: PERRL; Conjunctivae clear, sclerae non-icteric ENT: normal nose; no rhinorrhea; moist mucous membranes; pharynx without lesions noted, no uvula edema or deviation, no tonsillar hypertrophy, phonation normal NECK: Supple without meningismus; non-tender; no cervical lymphadenopathy, no masses CARD: RRR; no murmurs, no clicks, no rubs, no gallops; symmetric distal pulses RESP: Normal chest excursion without splinting or tachypnea; breath sounds clear and equal bilaterally; no wheezes, no rhonchi, no rales, pulse oximetry 98% on room air not hypoxic ABD/GI: Normal bowel sounds; non-distended; soft, mild tenderness through the left lower quadrant left flank region on palpation, no rebound, no guarding; no palpable organomegaly or masses. BACK: The back appears normal and is non-tender to palpation, there is no CVA tenderness EXT: Normal ROM in all joints; non-tender to palpation; no cyanosis, no effusions, no edema SKIN: Normal color for age and race; warm; dry; good turgor; no acute lesions noted NEURO: Moves all extremities equally; Motor and sensory function intact PSYCH: The patient's mood and manner are appropriate. Grooming and personal hygiene are appropriate. MDM: 39-year-old male presenting for continued vomiting. I reviewed the patient's prior chart. He had a CT done 3 days ago that showed possible small kidney stones in both the left and right kidneys. There was no active nephrolithiasis at the time of his presentation. Patient stating that he is having continued vomiting. I reviewed the patient on the [place] narcotics database where he has an active score of 710. He has been seen by multiple providers in the last few years both orthopedics and ER. Most recent notification was in March of this year. He states that he had received a prescription for [place] from the hospital although this is not shown in the [employer] database. When I push on the patient's abdomen he rides around his if he is having significant discomfort although if he is passing a kidney stone this is unlikely. We will reimage the patient today to evaluate for an obstructing stone. His CT last week was otherwise negative for acute findings. He voices no testicular discomfort to suggest torsion TRAVEL OUTSIDE OF THE [place]S. IN LAST 30 DAYS: No - Related Data Allergies/Adverse Reactions: No Known Allergies Allergy (Verified 06/14/20 13:46) Past Medical History - Social History Smoking Status: Current Every Day Smoker Chew tobacco use (# tins/day): No Frequency of alcohol use: None Drug Abuse: None Family History: Reviewed & Not Pertinent, CAD, DM, Hypertension, Malignancy, Other - Mother and brother have SVT long QT and he states have both had a heart attack and on pacemaker defibrillator Renal/ Medical History: Reports: Hx Kidney Stones. Denies: Hx Peritoneal Dialysis Musculoskeletal Medical History: Reports Hx Musculoskeletal Trauma - Clavicle Skin Medical History: Reports Hx MRSA Traumatic Medical History: Reports: Hx Fractures - right clavicle at 14 Past Surgical History: Reports: Hx Kidney (Renal Surgery) - lithotripsy x5, Other - lithotrypsy - Immunizations Immunizations up to date: Yes Hx Diphtheria, Pertussis, Tetanus Vaccination: No Physical Exam - Vital signs Vitals: Temp Pulse Resp BP Pulse Ox 97.6 F 78 20 141/101 H 100 06/16/20 15:31 06/16/20 15:31 06/16/20 15:31 06/16/20 15:31 06/16/20 15:31 Course - Re-evaluation Re-evalutation: 06/16/20 18:[address] does not show any evidence of active passage of a kidney stone. I discussed this with him at length. This is the second CT in 3 days to show no acute findings like this. Patient may have bowel spasm he may have a muscle strain from vomiting. I will switch the patient to Phenergan, Bentyl, he will need follow-up with gastroenterology. He has declined to provide a urine specimen during his visit here today - Vital Signs Vital signs: Temp Pulse Resp BP Pulse Ox 97.6 F 78 20 141/101 H 100 06/16/20 15:31 06/16/20 15:31 06/16/20 15:31 06/16/20 15:31 06/16/20 15:31 - Laboratory Result Diagrams: 06/16/20 15:55 06/16/20 15:55 Laboratory results interpreted by me: 06/16/20 06/16/20 15:55 15:55 WBC 10.6 H Plt Count 129 L Glucose 130 H Calcium 10.8 H Total Bilirubin 2.1 H Total Protein 8.4 H Albumin 5.2 H Discharge - Discharge Clinical Impression: Abdominal pain, left lower quadrant Vomiting Qualifiers: Vomiting type: unspecified Vomiting Intractability: non-intractable Nausea presence: with nausea Qualified Code(s): R11.2 - Nausea with vomiting, unspecified Condition: Stable Disposition: HOME, SELF-CARE Additional Instructions: Your CT imaging tonight did not seem to suggest that you are having active passage of a kidney stone. This may be bowel spasm or abdominal wall strain from your vomiting. Take the Phenergan for any recurrent nausea vomiting take Bentyl for abdominal spasm and pain. Follow-up with a concrete sculptor or with your primary care provider for reevaluation of your symptoms if they persist Prescriptions: Dicyclomine HCl [Bentyl 20 mg Tablet] 20 mg PO Q6H PRN #20 tablet PRN Reason: Promethazine HCl [Phenergan 25 mg Tablet] 1 tab PO Q6H PRN #15 tablet PRN Reason: Referrals: RADHA ADAMES PA-C [Primary Care Provider] - Follow up as needed JULIANA DUTTA MD [ACTIVE STAFF] - Follow up as needed
--- NOTE | 2020-06-16 18:29 | RADIOLOGY REPORT (SQ) ---
EXAM DESCRIPTION: CT ABD/PELVIS NO ORAL OR IV IMAGES COMPLETED DATE/TIME: 06/16/2020 6:14 pm REASON FOR STUDY: left flank pain COMPARISON: 06/13/2020 TECHNIQUE: CT scan of the abdomen and pelvis performed without intravenous or oral contrast. Images reviewed with lung, soft tissue, and bone windows. Reconstructed coronal and sagittal MPR images revi ewed. All images stored on PACS. All CT scanners at this facility use dose modulation, iterative reconstruction, and/or weight based d osing when appropriate to reduce radiation dose to as low as reasonably achievable (ALARA). [facility]: Dose Right [facility]: CareDose [facility]: Dose Right [facility]: Teradose 4D [facility]: Smart Sush.io RADIATION DOSE: CT Rad equipment meets quality standard of care and radiation dose reduction techniq ues were employed. CTDIvol: 4.8 mGy. DLP: 244 mGy-cm.mGy. LIMITATIONS: None. FINDINGS: LOWER CHEST: No significant findings. No nodules or infiltrates. NON-CONTRASTED LIVER, SPLEEN, ADRENALS: Evaluation limited by lack of IV contrast. No identified sign ificant masses. PANCREAS: No masses. No peripancreatic inflammatory changes. GALLBLADDER: No identified stones by CT criteria. No inflammatory changes to suggest cholecystitis. RIGHT KIDNEY AND URETER: No suspicious masses. Assessment limited by lack of IV contrast. There is ill-defined cortical calcification posterolaterally in the right kidney. This is unchanged. No hyd ronephrosis or hydroureter. LEFT KIDNEY AND URETER: No suspicious masses. Assessment limited by lack of IV contrast. There is a small nonobstructing lower calyceal calculus. No hydronephrosis or hydroureter. AORTA AND RETROPERITONEUM: No aneurysm. No retroperitoneal masses or adenopathy. BOWEL AND PERITONEAL CAVITY: No obvious masses or inflammatory changes. No free fluid. APPENDIX: Normal. PELVIS, BLADDER, AND ABDOMINAL WALL:No abnormal masses. No free fluid. Bladder normal. BONES: No significant findings. OTHER: No other significant finding. IMPRESSION: There is ill-defined cortical calcification in the right kidney that is stable. There i s a stable nonobstructing lower calyceal calculus in the left kidney. No ureteral stone or obstructi on. No other significant findings. COMMENT: Quality ID # [id number]: Final reports with documentation of one or more dose reduction techniques (e.g., Automated exposure control, adjustment of the mA and/or kV according to patient size, use of iterative reconstruction technique) TECHNICAL DOCUMENTATION: JOB ID: [id number] 2010 [employer]- All Rights Reserved Reading location - IP/workstation name: [email or web address]
[2020-06-16 18:45] LABS: AMORPHOUS SEDIMENT,URINE TRACE /HPF; APPEARANCE,URINE CLOUDY; BILIRUBIN,URINE NEGATIVE (NEGATIVE); COLOR,URINE YELLOW; GLUCOSE, URINE NEGATIVE (NEGATIVE); KETONES,URINE TRACE mg/dL (NEGATIVE); LEUKOCYTE ESTERASE,URINE NEGATIVE (NEGATIVE); NITRITE,URINE NEGATIVE (NEGATIVE); PROTEIN,URINE 100 mg/dL (NEGATIVE); URINE SPECIFIC GRAVITY 1.023
[2020-06-16] MEDS ORDERED: DICYCLOMINE HCL INJ 20 MG/2 ML AMPULE IM ONE (18:48)
[2020-06-16 18:57] LABS: URINE AMPHETAMINES SCREEN NEGATIVE; URINE BARBITURATES SCREEN NEGATIVE; URINE BENZODIAZEPINES SCREEN NEGATIVE; URINE COCAINE SCREEN NEGATIVE; URINE METHADONE SCREEN NEGATIVE; URINE PHENCYCLIDINE SCREEN NEGATIVE
[2020-06-16 18:58] LABS: URINE MARIJUANA (THC) SCREEN UNCONFIRMED POSITIVE
[2020-06-16 19:10] VITALS: BP 125/79
== END 2020-06-16 19:18 | disposition home or self-care (01) ==
LOC: ER 15:25
DX: R10.32 Left lower quadrant pain (principal); R11.2 Nausea with vomiting, unspecified; F12.10 Cannabis abuse, uncomplicated; F17.200 Nicotine dependence, unspecified, uncomplicated
CPT/HCPCS: 99285; 96372; 96361; 96374; 36415; 85025; 80053; 81001; 80307; 74176; J0500; J2405; J7030

== ENCOUNTER 2020-06-17 18:27 | Emergency (ER) | payer MEDICAID ==
[2020-06-17 18:38] VITALS: BP 152/87
--- NOTE | 2020-06-17 18:58 | ER Document Report ---
ED Medical Screen (RME) - General Chief Complaint: Vomiting Stated Complaint: VOMITING/ABDOMINAL PAIN/POSSIBLE DEHYDRATION Primary Care Provider: RADHA ADAMES PA-C [Primary Care Provider] - Follow up as needed Mode of Arrival: Ambulatory TRAVEL OUTSIDE OF THE [place] IN LAST 30 DAYS: No - HPI Notes: 06/17/20 18:52 Pt presents to the ER w/ ongoing n/v and pelvic pain. Has been seen in the ER multiple times for this recently including last night. Pt says he has ''kidney stones'' that have not passed and a UTI. Pt was started on keflex and norco and zofran but is unable to keep meds down. CT scan notes possible nephrolithiasis but no signs of obstructing stones. Pt denies flank pain, fever/chills, or diarrhea. The only thing that helps his nausea is ''hot baths''. he smokes marijuana but has not in the past week. Pt becomes defensive when cyclical vomiting is discussed. He is very frustrated and says the oingoing nausea is the worst symptoms and wants to be ''admitted to the hospital''. HE does endorse fequent urination and continues to have urgency. no penile discharge or genital rash/lesions. testicular US this week was normal. 06/17/20 18:58 My involvement in the pts care was limited to an initial medical screening exam. It was determined that pt requires further workup/treatment in the main ED. - Related Data Allergies/Adverse Reactions: No Known Allergies Allergy (Verified 06/14/20 13:46) Past Medical History - Social History Chew tobacco use (# tins/day): No Frequency of alcohol use: None Drug Abuse: Marijuana Family history: Reviewed & Not Pertinent Renal/ Medical History: Reports: Hx Kidney Stones. Denies: Hx Peritoneal Dialysis Musculoskeltal Medical History: Reports Hx Musculoskeletal Trauma - Clavicle Skin Medical History: Reports Hx MRSA Traumatic Medical History: Reports: Hx Fractures - right clavicle at 14 Past Surgical History: Reports: Hx Kidney (Renal Surgery) - lithotripsy x5, Other - lithotrypsy - Immunizations Immunizations up to date: Yes Hx Diphtheria, Pertussis, Tetanus Vaccination: No Physical Exam - Vital signs Vitals: Temp Pulse Resp BP Pulse Ox 98.6 F 69 18 152/87 H 97 06/17/20 18:32 06/17/20 18:32 06/17/20 18:32 06/17/20 18:32 06/17/20 18:32 Course - Vital Signs Vital signs: Temp Pulse Resp BP Pulse Ox 98.6 F 69 18 152/87 H 97 06/17/20 18:32 06/17/20 18:32 06/17/20 18:32 06/17/20 18:32 06/17/20 18:32 Doctor's Discharge - Discharge Referrals: RADHA ADAMES PA-C [Primary Care Provider] - Follow up as needed
[2020-06-17 19:29] LABS: ABSOLUTE BASOPHILS # (AUTO) 0.1 10^3/uL (0.0-0.2); ABSOLUTE EOSINOPHILS # (AUTO) 0.1 10^3/uL (0.0-0.6); ABSOLUTE LYMPHOCYTES (AUTO) 2.5 10^3/uL (0.5-4.7); ABSOLUTE MONOCYTES (AUTO) 0.8 10^3/uL (0.1-1.4); ABSOLUTE NEUT (AUTO) 5.5 10^3/uL (1.7-8.2); BASOPHILS % (AUTO) 0.6 % (0-2); EOSINOPHILS % (AUTO) 1.2 % (0-6); HEMATOCRIT 42.8 % (37.9-51.0); HEMOGLOBIN 14.8 g/dL (13.5-17.0); LYMPHOCYTES % (AUTO) 28.2 % (13-45); MEAN CORPUSCULAR HEMOGLOBIN 31.8 pg (27.0-33.4); MEAN CORPUSCULAR HGB CONC 34.5 g/dL (32.0-36.0); MEAN CORPUSCULAR VOLUME 92 fl (80-97); MONOCYTES % (AUTO) 9.1 % (3-13); PLATELET COUNT 109 10^3/uL (150-450); RED BLOOD COUNT 4.66 10^6/uL (4.35-5.55); RED CELL DISTRIBUTION WIDTH 13.2 % (11.5-14.0); SEGMENTED NEUTROPHILS % (AUTO) 60.9 % (42-78); TOTAL CELLS COUNTED % (AUTO) 100 %
[2020-06-17 19:36] LABS: APPEARANCE,URINE CLOUDY; BILIRUBIN,URINE NEGATIVE (NEGATIVE); CALCIUM OXALATE CRYSTALS,URINE FEW /HPF; COLOR,URINE YELLOW; GLUCOSE, URINE NEGATIVE (NEGATIVE); KETONES,URINE NEGATIVE (NEGATIVE); LEUKOCYTE ESTERASE,URINE TRACE (NEGATIVE); NITRITE,URINE NEGATIVE (NEGATIVE); PROTEIN,URINE NEGATIVE (NEGATIVE); URINE SPECIFIC GRAVITY 1.019
[2020-06-17 19:47] LABS: ALBUMIN 4.7 g/dL (3.5-5.0); ALKALINE PHOSPHATASE 57 U/L (38-126); ANION GAP 9 (5-19); ASPARTATE AMINO TRANSFERASE 27 U/L (17-59); BILIRUBIN,TOTAL 1.7 mg/dL (0.2-1.3); BLOOD UREA NITROGEN 17 mg/dL (7-20); CALCIUM 10.1 mg/dL (8.4-10.2); CARBON DIOXIDE 30 mmol/L (22-30); CHLORIDE 99 mmol/L (98-107); GLUCOSE 136 mg/dL (75-110); POTASSIUM 3.6 mmol/L (3.6-5.0); TOTAL PROTEIN 7.5 g/dL (6.3-8.2)
== END 2020-06-17 21:21 | disposition left against medical advice (07) ==
LOC: ER 18:27
DX: R11.2 Nausea with vomiting, unspecified (principal); R10.2 Pelvic and perineal pain; Z53.20 Procedure and treatment not carried out because of patient's decision for unspecified reasons
CPT/HCPCS: 36415; 80053; 81001; 83690; 85025; 99281

== ENCOUNTER 2020-06-20 07:40 | Emergency (ER) | payer MEDICAID ==
[2020-06-20 08:58] LABS: ABSOLUTE EOSINOPHILS # (AUTO) 0.1 10^3/uL (0.0-0.6); ABSOLUTE MONOCYTES (AUTO) 0.5 10^3/uL (0.1-1.4); ABSOLUTE NEUT (AUTO) 5.6 10^3/uL (1.7-8.2); BASOPHILS % (AUTO) 0.3 % (0-2); EOSINOPHILS % (AUTO) 0.8 % (0-6); HEMOGLOBIN 15.3 g/dL (13.5-17.0); LYMPHOCYTES % (AUTO) 24.6 % (13-45); MEAN CORPUSCULAR HEMOGLOBIN 31.4 pg (27.0-33.4); MEAN CORPUSCULAR VOLUME 92 fl (80-97); MONOCYTES % (AUTO) 6.6 % (3-13); PLATELET COUNT 124 10^3/uL (150-450); RED BLOOD COUNT 4.87 10^6/uL (4.35-5.55); RED CELL DISTRIBUTION WIDTH 13.6 % (11.5-14.0); SEGMENTED NEUTROPHILS % (AUTO) 67.7 % (42-78); TOTAL CELLS COUNTED % (AUTO) 100 %; WHITE BLOOD COUNT 8.3 10^3/uL (4.0-10.5)
[2020-06-20 09:02] LABS: APPEARANCE,URINE SLIGHTLY-CLOUDY; BILIRUBIN,URINE NEGATIVE (NEGATIVE); CALCIUM OXALATE CRYSTALS,URINE FEW /HPF; COLOR,URINE YELLOW; GLUCOSE, URINE NEGATIVE (NEGATIVE); KETONES,URINE NEGATIVE (NEGATIVE); LEUKOCYTE ESTERASE,URINE NEGATIVE (NEGATIVE); NITRITE,URINE NEGATIVE (NEGATIVE); PROTEIN,URINE 30 mg/dL (NEGATIVE); URINE SPECIFIC GRAVITY 1.021
[2020-06-20] MEDS ORDERED: METOCLOPRAMIDE HCL INJ/PF 10 MG/2 ML SDV IV ONE (09:07)
[2020-06-20] MEDS ORDERED: NORMAL SALINE 1000 ML 1,000 ML IV ONE (09:08)
[2020-06-20] MEDS ORDERED: KETOROLAC TROMETHAMINE INJ/PF 30 MG/1 ML SDV IV ONE (09:08)
[2020-06-20 09:16] LABS: ALBUMIN 4.9 g/dL (3.5-5.0); ALKALINE PHOSPHATASE 55 U/L (38-126); ANION GAP 11 (5-19); ASPARTATE AMINO TRANSFERASE 21 U/L (17-59); BILIRUBIN,TOTAL 1.5 mg/dL (0.2-1.3); BLOOD UREA NITROGEN 14 mg/dL (7-20); CALCIUM 10.4 mg/dL (8.4-10.2); CARBON DIOXIDE 30 mmol/L (22-30); CHLORIDE 99 mmol/L (98-107); GLUCOSE 135 mg/dL (75-110); POTASSIUM 4.1 mmol/L (3.6-5.0); TOTAL PROTEIN 7.7 g/dL (6.3-8.2)
--- NOTE | 2020-06-20 09:26 | ER Document Report ---
ED GI/ - General Chief Complaint: Abdominal Pain Stated Complaint: ABDOMINAL PAIN Time Seen by Provider: 06/20/20 08:19 Primary Care Provider: RADHA ADAMES PA-C [Primary Care Provider] - Follow up as needed Information source: Patient TRAVEL OUTSIDE OF THE [place] IN LAST 30 DAYS: No - HPI Notes: 06/20/20 09:21 39-year-old male with history of cannabis abuse and kidney stones presents to ED for evaluation of left sided flank pain for the last week. Patient reports he was seen here several times in the last week and had initially been placed on K eflex for management of urinary tract infection with stone. He notes that he was called on Sunday and was told that he needs to take Levaquin instead and had his Zofran changed to Phenergan for his continued vomiting. Patient reports he was able to schedule an appointment with urology for Sunday of this upcoming week at 4:00 however he is uncertain as to who he is supposed to see. Pain radiates into the corresponding lower abdomen. Patient reports nausea, vomiting without dysuria or hematuria. Patient denies penile chest pain, shortness of breath, rash, fever, chills, or diarrhea. Reports history of nephrolithiasis in the past. Patient states that he has not used cannabis in the last 2 weeks. - Related Data Allergies/Adverse Reactions: No Known Allergies Allergy (Verified 06/20/20 08:11) Past Medical History - Social History Smoking Status: Current Every Day Smoker Drug Abuse: Marijuana Family History: Reviewed & Not Pertinent, CAD, DM, Hypertension, Malignancy, Other - Mother and brother have SVT long QT and he states have both had a heart attack and on pacemaker defibrillator - Medical History Notes: Patient notes prior history of nephrolithiasis. Renal/ Medical History: Reports: Hx Kidney Stones. Denies: Hx Peritoneal Dialysis Musculoskeletal Medical History: Reports Hx Musculoskeletal Trauma - Clavicle Skin Medical History: Reports Hx MRSA Traumatic Medical History: Reports: Hx Fractures - right clavicle at 14 Past Surgical History: Reports: Hx Kidney (Renal Surgery) - lithotripsy x5, Other - lithotrypsy - Immunizations Immunizations up to date: Yes Hx Diphtheria, Pertussis, Tetanus Vaccination: No Review of Systems - Review of Systems Notes: Constitutional: Negative for fever. HENT: Negative for sore throat. Eyes: Negative for visual changes. Cardiovascular: Negative for chest pain. Respiratory: Negative for shortness of breath. Gastrointestinal: Negative for abdominal pain, vomiting or diarrhea. Genitourinary: Denies hematuria and penile discharge. Musculoskeletal: Negative for back pain. Skin: Negative for rash. Neurological: Negative for headaches, weakness or numbness. 10 point ROS negative except as marked above and in HPI. Physical Exam - Vital signs Vitals: Temp Pulse Resp BP Pulse Ox 98.5 F 76 18 145/90 H 96 06/20/20 07:43 06/20/20 07:43 06/20/20 07:43 06/20/20 07:43 06/20/20 07:43 Notes: General: Alert and oriented x3. Sitting uncomfortably in a stretcher. Skin: No jaundice, pallor, petechiae, or rashes. Warm and dry. HEENT: Normocephalic, atraumatic. Pupils are equal round reactive to light and accommodation. Extraocular movements are intact. TMs without erythema or bulging. Canals are clear. Nares patent without any discharge. Teeth in good condition. Pharynx without erythema, edema, or exudates. Mucous membranes moist. No tonsillar enlargement. Uvula is midline. Airway is patent. Neck: Supple with no lymphadenopathy. Full range of motion. Heart: Regular rate and rhythm. S1,S2. No murmurs, rubs, or gallops. Lungs: Clear to auscultation bilaterally. No wheezes, rhonchi, rales. Equal chest expansion. No retractions. Abdomen: Soft, tender to palpation in left lower abdomen, nondistended. Positive bowel sounds in all 4 quadrants. No masses. Left CVA tenderness. Back: No midline spinal TTP. No paraspinous muscular TTP. Neuro: GCS 15. Moving all extremities without discomfort. Psych: Mood and affect appropriate. Course - Re-evaluation Re-evalutation: 06/20/20 09:25 39-year-old male presents to ED for evaluation of left sided flank pain. Patient was evaluated with CBC, CMP, UA. Lab work was found to be notable for protein in the urine. Other labs are unremarkable. US scan of the kidneys as it of for 6 mm left-sided nonobstructive stone. There is no hydro or hydroureter present. Patient also has a mass present to the left lower kidney. Patient was Imaging results discussed with the patient. Patient treated symptomatically with tordol, morphine, and reglan with minimal improvement. Patient and I had extensive discussion about his use of cannabis. As his urine is positive and he does use this intermittently I do believe that he may have hyperemesis symptoms which are contributing to his underlying pain and nausea. We did agree to try Haldol for his symptoms which did alleviate his pain and vomiting. On reevaluation, patient was resting comfortably and I did have to awaken to reevaluate him. She states that he feels more comfortable at this time and is ready to be discharged home. Patient advised to eat a bland diet and will be continued on compazine and flomax for outpatient management. Patient understands to follow up with primary care physician as well as urology. Patient understands indications to return to the ER. Patient is agreeable with this plan. 06/20/20 13:22 - Vital Signs Vital signs: Temp Pulse Resp BP Pulse Ox 98.5 F 76 18 145/90 H 96 06/20/20 07:43 06/20/20 07:43 06/20/20 07:43 06/20/20 07:43 06/20/20 07:43 - Laboratory Result Diagrams: 06/20/20 08:32 06/20/20 08:32 Laboratory results interpreted by me: 06/20/20 06/20/20 06/20/20 08:32 08:32 08:32 Plt Count 124 L Glucose 135 H Calcium 10.4 H Total Bilirubin 1.5 H Urine Protein 30 H Urine Urobilinogen 2.0 H Discharge - Discharge Clinical Impression: Nephrolithiasis, Cannabis use disorder, mild, abuse Nausea and vomiting Qualifiers: Vomiting type: unspecified Vomiting Intractability: intractable Qualified Code(s): R11.2 - Nausea with vomiting, unspecified Condition: Stable Disposition: HOME, SELF-CARE Prescriptions: Prochlorperazine Maleate [Compazine 25 Mg Supp.Rect] 25 mg [place] BID #10 supp.rect Tamsulosin HCl [Flomax 0.4 mg Cap.sr] 0.4 mg PO DAILY #7 cap.sr.24h Forms: Return to Work Referrals: RADHA ADAMES PA-C [Primary Care Provider] - Follow up as needed
[2020-06-20 09:52] LABS: URINE AMPHETAMINES SCREEN NEGATIVE; URINE BARBITURATES SCREEN NEGATIVE; URINE BENZODIAZEPINES SCREEN NEGATIVE; URINE COCAINE SCREEN NEGATIVE; URINE METHADONE SCREEN NEGATIVE; URINE PHENCYCLIDINE SCREEN NEGATIVE
[2020-06-20 10:02] LABS: URINE MARIJUANA (THC) SCREEN UNCONFIRMED POSITIVE
[2020-06-20] MEDS ORDERED: TAMSULOSIN HCL 0.4 MG CAP.SR.24H PO ONE (10:06)
[2020-06-20] MEDS: MORPHINE SULFATE 10 MG/ML INJ IV PRN ×2 (10:25→12:21)
[2020-06-20] MEDS ORDERED: HALOPERIDOL LACTATE INJ 5 MG/1 ML VIAL IV ONE (11:59)
--- NOTE | 2020-06-20 12:05 | RADIOLOGY REPORT (SQ) ---
EXAM DESCRIPTION: U/S RETROPERITON (RENAL/AORTA) IMAGES COMPLETED DATE/TIME: 06/20/2020 11:47 am REASON FOR STUDY: left sided kidney stone COMPARISON: 06/17/2019, CT 06/16/2020. TECHNIQUE: Dynamic and static grayscale images acquired of the kidneys and bladder and recorded on P ACS. Additional selected color Doppler and spectral images recorded. LIMITATIONS: None. FINDINGS: RIGHT KIDNEY: Normal size. Normal echogenicity. No solid or suspicious masses. No hydronep hrosis. No calcifications. LEFT KIDNEY: 2 cm upper pole cyst. 6 mm nonobstructing calculus. Possible solid mass lower pole me asuring 4 cm. This could also be a loop of adjacent bowel. BLADDER: No masses. OTHER FINDINGS: No other significant finding. IMPRESSION: Nonobstructing stone left kidney. Potential mass lower pole. TECHNICAL DOCUMENTATION: JOB ID: [id number] 2010 [employer]- All Rights Reserved Reading location - IP/workstation name: [email or web address]
[2020-06-20 13:46] VITALS: BP 130/85
== END 2020-06-20 13:44 | disposition home or self-care (01) ==
LOC: ER 07:40
DX: N39.0 Urinary tract infection, site not specified (principal); N20.0 Calculus of kidney; N28.89 Other specified disorders of kidney and ureter; F12.10 Cannabis abuse, uncomplicated; R11.2 Nausea with vomiting, unspecified; F17.200 Nicotine dependence, unspecified, uncomplicated
CPT/HCPCS: 99285; 96361; 96374; 96375; 36415; 83690; 85025; 80053; 81001; 80307; 76770; J1630; J1885; J2765; J2270; J3490; J7030